=== PATIENT | male | born 1960 | race Hispanic/Latino ===

== ENCOUNTER 2018-08-20 17:17 | Inpatient (IN) | payer MEDICARE, SELFPAY ==
[2018-08-20] MEDS ORDERED: diphenhydrAMINE 50 MG/ML VIAL IM PRN (18:03)
[2018-08-20] MEDS ORDERED: Ketorolac Tromethamine 30 MG/ML VIAL IVP PRN (18:03)
[2018-08-20] MEDS ORDERED: diphenhydrAMINE 50 MG/ML VIAL IVP PRN ×2 (18:03→18:38)
[2018-08-20] MEDS ORDERED: Promethazine HCl 25 MG/ML VIAL IM PRN ×2 (18:03→18:38)
[2018-08-20] MEDS ORDERED: Naloxone HCl 0.4 mg/ml Vial IV PRN (18:03)
[2018-08-20] MEDS ORDERED: Zolpidem Tartrate 5 MG TAB PO PRN (18:03)
[2018-08-20] MEDS ORDERED: diphenhydrAMINE 25 MG CAP PO PRN ×2 (18:03→18:38)
[2018-08-20] MEDS ORDERED: Communication Order-Pharmacy FS SCH (18:15)
[2018-08-20 18:29] LABS: #Basophils 0.1 thou/uL (0.0-0.2); #Eosinphils 0.4 thou/uL (0.0-0.7); #Lymphocytes 1.8 thou/uL (1.20-3.40); #Monocytes 0.9 thou/uL (0.11-0.59); #Neutrophils 5.4 thou/uL (1.40-6.50); %Basophils 0.7 % (0.0-1.0); %Eosinophils 4.2 % (0.0-10.0); %Monocytes 10.8 % (0.0-10.0); %Neutrophils 63.3 % (42.0-75.0); Mean Corpuscular HGB CONC 33.8 g/dL (32.0-36.0); Mean Corpuscular Hemoglobin 31.5 pg (27.0-31.0); Mean Corpuscular Volume 93.2 fL (78.0-98.0); Platelet Count 154 thou/uL (130-400); Red Blood Cell (RBC) Count 3.81 mill/uL (4.70-6.10); White Blood Cell (WBC) Count 8.5 thou/uL (4.8-10.8)
[2018-08-20 18:34] LABS: INR-International Normal Ratio 1.1; Prothrombin Time 13.9 SEC (12.0-14.7)
[2018-08-20 18:35] LABS: PTT 29.6 SEC (22.9-36.1)
[2018-08-20] MEDS ORDERED: Promethazine HCl 12.5 MG SUPP PR PRN (18:38)
[2018-08-20] MEDS ORDERED: Promethazine 25 MG TAB PO PRN (18:38)
[2018-08-20] MEDS ORDERED: Ondansetron PF 4 MG/2 ML Vial IVP PRN (18:39)
[2018-08-20 18:48] LABS: Anion Gap 13 mmol/L (10-20); BUN (Urea Nitrogen) 10 mg/dL (8.4-25.7); Calc. Creatinine Clearance 0 mL/min (70-130); Calcium 9.1 mg/dL (7.8-10.44); Carbon Dioxide 23 mmol/L (22-29); Chloride 106 mmol/L (98-107); Estimated GFR-MDRD Greater than 90; Glucose 101 mg/dL (70-105); Potassium 3.6 mmol/L (3.5-5.1); Sodium 138 mmol/L (136-145)
[2018-08-20] MEDS: Sodium Chloride 0.9% 1,000 ML IV SCH (19:06)
[2018-08-20] MEDS: fentaNYL Citrate/PF 2,000 MCG in Sodium Chloride 0.9% 60 ML IV PRN (19:07)
[2018-08-20] MEDS: Metoprolol Tartrate 25 MG TAB PO SCH (21:23)
[2018-08-20] MEDS: Atorvastatin Calcium 40 MG TAB PO SCH (21:23)
[2018-08-20] MEDS: Gabapentin 300 MG CAP PO SCH (21:23)
[2018-08-20 22:49] VITALS: BMI 27.1
[2018-08-21] MEDS ORDERED: Adacel (T-DAP) 0.5 ML SYRINGE IM ONE (00:15)
--- NOTE | 2018-08-21 00:34 | HP ---
HISTORY OF PRESENT ILLNESS: The patient is a 58-year-old male with past medical history of coronary artery disease with multiple prior stents, hypertension, hyperlipidemia with prior L3-L5 fusion in 1999, who presented as ER referral for low back and leg pain. The patient reports that he was doing well until 07/30/2018, when he had sudden return of low back pain while trying to lift a pet house. He describes his pain as sharp, stabbing in the lower lumbar spine with radiation into the right groin and with associated numbness and tingling in the posterior aspect of the right leg to the knee. He is having urinary and bowel urgency and is unable to reach the bathroom at times secondary to pain. He has severe pain with standing, walking, and moving around. He is better with lying on his side. He has visited the ER several times and has a recent CT of the lumbar spine as well as MRI of the lumbar spine. MRI shows a large disk protrusion with central canal stenosis at the level above his prior fusion. CT of the lumbar spine showed stable hardware complex at L3-L5. PAST MEDICAL HISTORY: Coronary artery disease, hypertension, and hyperlipidemia. PAST SURGICAL HISTORY: L3-L5 fusion in 1999 in [place], bilateral knee replacement, bariatric surgery, left ankle surgery. HOSPITALIZATIONS: See surgical history. FAMILY HISTORY: Noncontributory. SOCIAL HISTORY: The patient is . He does not smoke, drink, or use any drugs. CURRENT MEDICATION LIST: 1. Aspirin. 2. Atorvastatin. 3. Isosorbide dinitrate. 4. Plavix. 5. Ranexa. 6. Omeprazole. 7. Metoprolol. 8. Amlodipine. 9. Losartan. 10. Diazepam. 11. Hydrocodone. 12. Gabapentin. ALLERGIES: HE HAS NO KNOWN DRUG ALLERGIES. REVIEW OF SYSTEMS: Per HPI. PHYSICAL EXAMINATION: CONSTITUTIONAL: The patient is awake, alert, uncomfortable, tearful. HEENT: Head is normocephalic, atraumatic. Eyes; PERRLA. Extraocular movements intact. ENT; oral mucosa is pink, intact, and moist. He has normal voice. NECK: Nontender to palpation. Free active range of motion. No meningismus or nuchal rigidity. CARDIAC: Regular rate and rhythm. LUNGS: He is breathing comfortably with symmetric chest expansion. No evidence of dyspnea. MUSCULOSKELETAL: He has good range of motion of the upper extremities, 5/5 strength throughout. The patient has severe pain with any movement of the lower extremities or the lumbar spine and has difficulty in participating in exam. He seems weak throughout the lower extremities. Again, this is very much limited by pain. He is generally hyperreflexive throughout. NEUROLOGIC: A and O x4. He has normal speech. He seems somewhat weak 4-/5 in the lower extremities; however, this exam is significantly limited by his pain. ASSESSMENT AND PLAN: This is a 58-year-old male with a significant cardiac history, who is being evaluated in our office today for severe low back pain with radiation to the right groin and right proximal leg. His imaging show a large disk protrusion and degenerative changes at the level above his prior construct. Considering the patient's severe level of pain, he will be directly admitted to [facility] for treatment of this. We will consult anesthesia for assistance in pain management and THERAPIST OCCUPATIONAL pump. I will also consult the Hospitalist Service for assistance in medical management as well as Cardiology for expedited cardiac clearance. We will hold the patient's Plavix and aspirin in anticipation for likely surgical intervention in the near future. I have discussed this plan with Dr. Andino who is in agreement. Job ID: [id number]
--- NOTE | 2018-08-21 01:06 | CON ---
DATE OF CONSULTATION: PRIMARY CARE PHYSICIAN: Jeannette Garcia. PRIMARY TEAM: Neurosurgery, Dr. Andino. REASON FOR CONSULTATION: Medical management. HISTORY OF PRESENT ILLNESS: This is a 58-year-old white male with history of previous back problems, surgery done in 1999, who has had some chronic recurring problems in his low back and then he had an exacerbation of it starting at the beginning of July. The patient had progressive weakness and numbness into his legs and then progressive loss of control of bowel and bladder. The patient was seen at [facility] and then at [facility]. Then he had an appointment with Dr. Andino today, but was unable to be able to wait for the appointment. Eventually, Dr. Andino admitted the patient and did a spinal decompression today. PAST MEDICAL HISTORY: 1. Coronary artery disease. 2. Hypertension. 3. Hyperlipidemia. 4. Previous kidney stones. PAST SURGICAL HISTORY: 1. Coronary artery stents x11. 2. Surgical kidney stone removal multiple times. 3. Cholecystectomy. 4. Bilateral total knee replacements. 5. Bariatric gastric sleeve. 6. Ankle surgery. SOCIAL HISTORY: The patient is not and he lives with his partner, Edyta Tao. She is in the room with him. His medical power of contracts attorney is his daughter, Vivienne Wilburn. The patient smokes a half pack of cigarettes per day and 3-4 cigars per day. He drinks a couple of beers 1 or 2 times a week. No illicit drugs. FAMILY HISTORY: Dad of colon cancer. One brother of colon cancer. Another brother of lymphatic cancer. ALLERGIES: 1. LISINOPRIL. 2. CIPROFLOXACIN. 3. CRESTOR, BUT NOT OTHER STATINS. 4. AZITHROMYCIN. CURRENT MEDICATIONS: 1. Aspirin 81 mg daily. 2. Atorvastatin 40 mg daily. 3. Isosorbide mononitrate 30 mg daily. 4. Clopidogrel 75 mg daily. 5. Omeprazole 20 mg daily. 6. Metoprolol 12.5 mg twice daily. 7. Amlodipine 5 mg daily. 8. Ranexa 500 mg once daily per patient. 9. Vitamin D3 1000 mg international units daily. 10. Coenzyme Q10 100 mg daily. 11. B12 1000 mcg daily. 12. Losartan 25 mg daily. 13. Diazepam 5 mg every 8 hours for muscle spasms. 14. Hydrocodone 10/325 mg every 6 hours for pain. 15. Tramadol tablets every 6 hours as needed for pain. 16. Nitroglycerin sublingual as needed for chest pain. 17. Gabapentin, unknown dose. REVIEW OF SYSTEMS: CONSTITUTIONAL: No fevers, no chills. EYES: No double vision or blurred vision ENT: No congestion drainage or sore throat. PULMONARY: No coughing, wheezing or shortness of breath. CARDIOVASCULAR: No chest pain, no palpitation or racing heart. GASTROINTESTINAL : No abdominal pain. No nausea or vomiting. He has had some constipation and then he has lost the ability to control his bowel movements last few days. GENITOURINARY: No dysuria or hematuria. He has developed some urinary incontinence. MUSCULOSKELETAL: See HPI. Still with severe pain in his low back. Postsurgery , he has improved after they got the MULTI SLIDE MACHINE TENDER started. SKIN: No rashes or lesions noted. NEUROLOGIC: See HPI. PHYSICAL EXAMINATION: VITAL SIGNS: Blood pressure 139/85, pulse 69, respirations 22, O2 saturation 96 % on room air, temperature 97.8. GENERAL: This is a well-developed, well-nourished white male, who is in some distress from pain. HEENT: Pupils equal, round, and reactive to light. Oropharynx clear without lesions, erythema, or exudate. NECK: Supple. No lymphadenopathy. No thyroid nodules or enlargement. No JVD. HEART: Regular rate and rhythm. No murmurs, rubs, or gallops. LUNGS: Clear to auscultation bilaterally. No wheezes, crackles, or rhonchi. ABDOMEN: Soft, nontender to palpation. Normoactive bowel sounds. No hepatosplenomegaly or other masses. EXTREMITIES: No clubbing, cyanosis, or edema. SKIN: No rashes or other lesions noted. LABORATORY DATA: CBC with a hemoglobin of 12, hematocrit of 35.5. The rest is normal. Coagulation profile is normal. Basic metabolic panel is within normal limits as well. ASSESSMENT: 1. Spinal stenosis status post decompressive surgery by Dr. Andino. 2. Coronary artery disease without any acute ischemia. We will resume patient's home medications except for holding his aspirin and Plavix until cleared to take these by neurosurgery. Dr. Lovett has also been consulted by the neurosurgical team to assist with management of the coronary artery disease. 3. Hypertension. We will resume patient's home medications. 4. Hyperlipidemia. We will resume the patient's atorvastatin. 5. Gastrointestinal prophylaxis. We will resume patient's proton pump inhibitor. 6. Deep venous thrombosis prophylaxis. We will put patient on sequential compression devices while in bed. 7. Code status. I did discuss this with the patient at length. He states that he does not want any resuscitation should his heart stop, so he is a DO NOT ATTEMPT RESUSCITATION. He states that though he would like his significant other to be his medical decisionmaker, currently his daughter is his medical power of contracts attorney, Vivienne Wilburn. Job ID: [id number] MTDD
--- NOTE | 2018-08-21 06:33 | PRG ---
DATE OF SERVICE: The patient is a 58-year-old male who presented to our office yesterday afternoon as new patient visit with severe low back and right proximal leg pain. His imaging revealed increased degenerative changes and herniated disk above his prior fusion. He was direct admitted to the hospital with plans for surgical intervention in the near future. We have requested cardiology to see him for expedited cardiac clearance considering his significant cardiac history and multiple stents. I have held Plavix and aspirin. His pain is much improved today with the use of a GLUING PRESSMAN pump. He is not requiring any additional p.r.n. medications at this time. We appreciate Cardiology and medical assistance in management of this patient. Job ID: [id number] MTDD
--- NOTE | 2018-08-21 08:27 | PDOC.PN ---
- Subjective Encounter Start Date: 08/21/18 Encounter Start Time: 10:00 Subjective: Patient with better pain control this morning. Evaluated by -: cardiology for cardiac clearance this morning. No CP/SOB. - Objective MAR Reviewed: Yes Vital Signs & Weight: Vital Signs (12 hours) Temp Pulse Resp BP Pulse Ox 08/21/18 07:11 98 F 50 L 16 116/70 96 08/21/18 04:00 98.3 F 65 18 107/61 95 08/21/18 00:59 98.4 F 55 L 14 115/65 96 Weight Weight 189 lb 3 oz I&O: 08/20/18 08/21/18 08/22/18 06:59 06:59 06:59 Intake Total 1380 Output Total 650 Balance 730 Result Diagrams: 08/20/18 18:20 08/20/18 18:20 Phys Exam - Physical Examination Constitutional: NAD HEENT: moist MMs Respiratory: no wheezing, no rales, no rhonchi Cardiovascular: RRR, no significant murmur Gastrointestinal: soft, positive bowel sounds Musculoskeletal: no edema, pulses present Neurological: moves all 4 limbs Psychiatric: normal affect, A&O x 3 Dx/Plan (1) Herniated disc Code(s): BPT7221 - Status: Acute Qualifiers: Spinal region: lumbar Qualified Code(s): M51.26 - Other intervertebral disc displacement, lumbar region Comment: with radicular symptoms and urinary/fecal incontinence, admitted last night and cardiology consulted for cardiac clearance prior to surgery, holding blood thinners (2) CAD (coronary artery disease) Code(s): I25.10 - ATHSCL HEART DISEASE OF [place] CORONARY ARTERY W/O ANG PCTRS Status: Chronic Qualifiers: Coronary Disease-Associated Artery/Lesion type: [place] artery Comment: s/p many stents (3) Hypertension Code(s): I10 - ESSENTIAL (PRIMARY) HYPERTENSION Status: Chronic (4) Hyperlipidemia Code(s): E78.5 - HYPERLIPIDEMIA, UNSPECIFIED Status: Chronic - Plan cont current plan of care, DVT proph w/SCDs Plan for cardiac clearance and then surgery * . - Discharge Day Encounter end time: 10:10
[2018-08-21] MEDS: Ubidecarenone 50 MG CAP PO SCH (09:51)
[2018-08-21] MEDS: Gabapentin 300 MG CAP PO SCH ×3 (09:52→20:20)
[2018-08-21] MEDS: Cyanocobalamin (Vitamin B-12) 1,000 MCG TAB PO SCH (09:52)
[2018-08-21] MEDS: Amlodipine 5 MG TAB PO SCH (09:54)
[2018-08-21] MEDS: Losartan 25 MG TAB PO SCH (09:54)
[2018-08-21] MEDS: Metoprolol Tartrate 25 MG TAB PO SCH ×2 (09:54→20:20)
[2018-08-21] MEDS: Sodium Chloride 0.9% 1,000 ML IV SCH ×2 (09:58→23:22)
--- NOTE | 2018-08-21 16:11 | CON ---
DATE OF CONSULTATION: 08/21/2018 TYPE OF CONSULTATION: Cardiology. INDICATION FOR CONSULTATION: A 58-year-old patient, who needs preop clearance for back surgery. HISTORY OF PRESENT ILLNESS: This 58-year-old gentleman, who has had multiple stent placements in the past, has significant coronary artery disease, apparently underwent cardiac catheterization last in 2018, was told that he has medical treatment only due to a very small vessels. His first stent was placed in 2012 and he has had multiple stents placed since that time. He denies any chest pain. He remains somewhat active at home, but does not do any significant physical exertion. He had a back strain, injured his back on ' Day and this has continued to get worse until he presented to the hospital yesterday and now has been diagnosed with spinal stenosis and possible herniated disk. He also has sciatica and the plan is for lower back surgery if he is stable. We are awaiting the echocardiogram and last cardiac catheterization that was done in [address] Burr over [facility]. Otherwise, the patient has a history of hypertension, hypercholesterolemia, and continues to smoke. He said he has smoked since he was 7 years old. He has smoked up to 3 packs a day and still smokes about half a pack a day and also smokes occasional cigar. PAST MEDICAL HISTORY: Significant for coronary artery disease, multiple surgeries. He has had back surgery in the past, back in 1999. He had surgery in [place]. He has also had multiple stent placements. He denies any significant heart attacks in the past. He says his ejection fraction is apparently normal. He has had carpal tunnel syndrome. He has had nephrolithiasis. He has had multiple stones removed using a basket technique. He has had a history of a hematoma around the right optic nerve, which was removed. He has had a tonsillectomy. He has had bariatric surgery, he has left over 120 to 130 pounds. He has had left ankle surgery. He has had L3-L5 fusion in [place] in 1999. He had bilateral knee replacement. He has had left ankle surgery. FAMILY HISTORY: Noncontributory. SOCIAL HISTORY: He continues to smoke on a daily basis. He has occasional beers. He is . He has 2 children, who have no heart disease. MEDICATIONS: Prior to admission included; 1. Aspirin. 2. Atorvastatin. 3. Isosorbide dinitrate. 4. Plavix. 5. Ranexa. 6. Omeprazole. 7. Metoprolol. 8. Amlodipine. 9. Losartan. 10. Diazepam. 11. Hydrocodone. 12. Gabapentin. ALLERGIES: HE SAYS HE HAS INTOLERANCE TO LISINOPRIL, CRESTOR, AND CIPRO, BUT NO TRUE ALLERGIC REACTIONS. REVIEW OF SYSTEMS: He wears glasses. He has dyspepsia. He continues to smoke. He has urinary and fecal incontinence recently after his back injury. He has had episodes of syncope with 3 or 4 times a month back in 2015 and they resolved after he underwent angioplasty and stent placement. He complains of lower extremity weakness due to the back problems. He says his right foot is numb. He has right leg pain, which he attributes also to some sciatica. PHYSICAL EXAMINATION: GENERAL: Reveals a well-developed, well-nourished gentleman, who is in no acute distress. VITAL SIGNS: Blood pressure is 116/70, heart rate is 50 and regular, his respiratory rate is 16, and O2 saturation 96%. He is afebrile. HEENT: Shows head to be normocephalic and atraumatic. Carotid pulses are present. There were no bruits. No JVD. The thyroid is not enlarged. Oral mucosa is pink and moist. CHEST: Clear to auscultation. There were no rales, rhonchi, or wheezing. CARDIOVASCULAR: Reveals a regular rate and rhythm with normal S1 and S2. There is no S3 or S4. There were no significant murmurs, heaves, thrills, bruits, or rubs. ABDOMEN: Soft and nontender. Positive bowel sounds are present. There is no organomegaly or masses noted. Femoral pulses are present. EXTREMITIES: No clubbing, cyanosis, or edema. Pedal pulses are also present. NEUROLOGIC: The patient appears to be intact. He does complain of some low back pain. He did not get out of the bed due to his back problems, but otherwise his upper strength appears to be normal. SKIN: Warm and dry. LABORATORY DATA: His EKG is still pending. His laboratory data shows WBC of 8.5 with a hemoglobin of 12, and platelet count 154,000. His creatinine 0.75, sodium 138, potassium 3.6, and blood sugar was 101. IMPRESSION AND PLAN: 1. A 58-year-old gentleman, who needs preop clearance to undergo back surgery. We will try to obtain the records [place] from Dr. Burr's office concerning his last cardiac catheterization and echocardiogram to determine ejection fraction to see if he is at risk for undergoing anesthesia. He denies any recent chest pain. Prior to his previous stent placement, he did complain of chest pain before the stent was placed and most likely, he has been stable at this time despite having small vessels. 2. History of tobacco abuse. He was advised to stop smoking and continue to do so and he did stop for several years, but then has resumed smoking about 3-1/2 years ago. He did stop for about 8 or 9 years previously. 3. He has a history of hypertension. This is under very good control at this time. 4. He has history of hypercholesterolemia. Do not have a cholesterol level, but he is on cholesterol medications. At this time, if the echocardiogram appears to be reasonable and there is no other acute indication from the EKG that he has any ischemic episodes, then he will be cleared for surgery as soon as we review those documents. Job ID: [id number]
[2018-08-21] MEDS: Ondansetron PF 4 MG/2 ML Vial IVP PRN (16:40)
[2018-08-21] MEDS: fentaNYL Citrate/PF 2,000 MCG in Sodium Chloride 0.9% 60 ML IV PRN (18:42)
[2018-08-21] MEDS: Atorvastatin Calcium 40 MG TAB PO SCH (20:20)
--- NOTE | 2018-08-22 08:09 | PRG ---
DATE OF SERVICE: 08/22/2018 Mr. Wilburn was admitted directly from clinic after presenting with acute deterioration of lumbar stenosis above a prior fusion intractable pain and so I mobilized he had to be directly admitted to the hospital, was doing better now on a STREET LIGHT REPAIRER and being mobilized. Based on his imaging and clinical features, he will require lumbar laminectomy and fusion at the level that we are calling L2-L3, immediately above the prior fusion. It should be noted that he has a transitional segment . Cardiology has evaluated him and generally felt him satisfactory for surgery, although there are still some items that they want to follow up on today based on their most recent note. He was on aspirin and Plavix up until Sunday and these have been held. IMPRESSION AND PLAN: Assuming final cardiac clearance, we will plan to proceed with decompression and fusion. This will likely occur on Sunday as we need some time for the aspirin and Plavix to be eliminated from the system from a bleeding perspective. Because he is so mobilized, we will start Lovenox until Sunday evening. I again discussed with him the nature of the surgery as per our discussion in the office including the indication, risks, benefits, alternatives, and he expressed understanding and wishes to proceed. Job ID: [id number]
--- NOTE | 2018-08-22 08:26 | PDOC.PN ---
- Subjective Encounter Start Date: 08/22/18 Encounter Start Time: 11:00 Subjective: Patient with pain controlled on TELEPHONE TRIAGE NURSE. No other complaints. - Objective Resuscitation Status - Order Detail: 08/21/18 15:50 Resuscitation Status Routine Resuscitation Status: DNAR: NO Resuscitation Discussed with: Patient SHERRI Reviewed: Yes Vital Signs & Weight: Vital Signs (12 hours) Temp Pulse Resp BP Pulse Ox 08/22/18 08:00 99.8 F H 65 18 113/71 91 L 08/22/18 04:00 99.9 F H 82 16 115/59 L 95 08/21/18 23:23 98.3 F 62 14 105/63 95 Weight Weight 189 lb 3 oz I&O: 08/21/18 08/22/18 08/23/18 06:59 06:59 06:59 Intake Total 1380 1260 Output Total 650 Balance 730 1260 Result Diagrams: 08/20/18 18:20 08/20/18 18:20 Phys Exam - Physical Examination Constitutional: NAD HEENT: moist MMs Respiratory: no wheezing, no rales, no rhonchi Cardiovascular: RRR Gastrointestinal: soft, positive bowel sounds Neurological: non-focal, moves all 4 limbs Psychiatric: normal affect, A&O x 3 Dx/Plan (1) Herniated disc Code(s): [id number] - Status: Acute Qualifiers: Spinal region: lumbar Qualified Code(s): M51.26 - Other intervertebral disc displacement, lumbar region Comment: with radicular symptoms and urinary/fecal incontinence, admitted last night and cardiology consulted for cardiac clearance prior to surgery, holding blood thinners, likely surgery on Sunday next week to allow time for aspirin and Plavix to get out of system (2) CAD (coronary artery disease) Code(s): I25.10 - ATHSCL HEART DISEASE OF [place] CORONARY ARTERY W/O ANG PCTRS Status: Chronic Qualifiers: Coronary Disease-Associated Artery/Lesion type: [place] artery Comment: s/p many stents (3) Hypertension Code(s): I10 - ESSENTIAL (PRIMARY) HYPERTENSION Status: Chronic (4) Hyperlipidemia Code(s): E78.5 - HYPERLIPIDEMIA, UNSPECIFIED Status: Chronic - Plan cont current plan of care, DVT proph w/lovenox Lovenox until the day before surgery * . - Discharge Day Encounter end time: 11:15
[2018-08-22] MEDS: Ubidecarenone 50 MG CAP PO SCH (09:33)
[2018-08-22] MEDS: Cyanocobalamin (Vitamin B-12) 1,000 MCG TAB PO SCH (09:33)
[2018-08-22] MEDS: Gabapentin 300 MG CAP PO SCH ×3 (09:33→20:15)
[2018-08-22] MEDS: Metoprolol Tartrate 25 MG TAB PO SCH ×2 (09:34→20:15)
[2018-08-22] MEDS: Amlodipine 5 MG TAB PO SCH (09:34)
[2018-08-22] MEDS: Losartan 25 MG TAB PO SCH (09:35)
--- NOTE | 2018-08-22 10:18 | PDOC.CTH ---
Cardiology Progress Note - Subjective Pt. seen and eval. by me. He denies any cardiac complaints. No new events overnight. - Objective Vital Signs Temp Pulse Resp BP BP Pulse Ox 08/22/18 09:34 65 113/71 08/22/18 08:00 99.8 F H 65 18 113/71 91 L 08/22/18 04:00 99.9 F H 82 16 115/59 L 95 08/21/18 23:23 98.3 F 62 14 105/63 95 Weight 189 lb 3 oz 08/21/18 08/22/18 08/23/18 06:59 06:59 06:59 Intake Total 1380 1260 Output Total 650 Balance 730 1260 - Physical Examination General/Neuro: alert & oriented x3 Neck: no JVD present Lungs: CTA Heart: RRR Abdomen: no HSM, NT/ND, soft - Labs Result Diagrams: 08/20/18 18:20 08/20/18 18:20 - Assessment/Plan 1. Spinal stenosis: surgery planned for next Sunday. Pt. has kirsten on oral anti- platelt medication and is advised to hold and plan for surgery several days later. In the interim he will continue with DVT prophylaxis with Lovenox. 2. CAD: severe 3 vessel disease with multiple stents.Small distal vessels. Poor candidate for further intervention. Continue medical treatment. Post back surgery resume antiplateet meds when feasible.
[2018-08-22] MEDS: Enoxaparin Sodium 40 MG/0.4 ML SYRINGE SC SCH (11:15)
[2018-08-22] MEDS ORDERED: CEFAZOLIN 2 GM/50 ML-DEXTROSE 2 GM in Premix Bag 1 BAG IVPB SCH (12:30)
[2018-08-22] MEDS: Sodium Chloride 0.9% 1,000 ML IV SCH ×2 (12:35→19:17)
[2018-08-22] MEDS: fentaNYL Citrate/PF 2,000 MCG in Sodium Chloride 0.9% 60 ML IV PRN (19:17)
[2018-08-22] MEDS: Acetaminophen 325 MG TAB PO PRN (20:14)
[2018-08-22] MEDS: Atorvastatin Calcium 40 MG TAB PO SCH (20:15)
[2018-08-23] MEDS: Gabapentin 300 MG CAP PO SCH ×3 (08:25→22:02)
[2018-08-23] MEDS: Losartan 25 MG TAB PO SCH (08:25)
[2018-08-23] MEDS: Ubidecarenone 50 MG CAP PO SCH (08:25)
[2018-08-23] MEDS: Amlodipine 5 MG TAB PO SCH (08:26)
[2018-08-23] MEDS: Metoprolol Tartrate 25 MG TAB PO SCH ×2 (08:26→22:02)
[2018-08-23] MEDS: Cyanocobalamin (Vitamin B-12) 1,000 MCG TAB PO SCH (08:26)
[2018-08-23] MEDS: Enoxaparin Sodium 40 MG/0.4 ML SYRINGE SC SCH (08:28)
[2018-08-23] MEDS: Sodium Chloride 0.9% 1,000 ML IV SCH ×2 (08:31→22:29)
--- NOTE | 2018-08-23 11:55 | PDOC.CTH ---
Cardiology Progress Note - Subjective The pt seen and examined. No overnight events. No cardiac complaints. - Objective Vital Signs Temp Pulse Resp BP Pulse Ox 08/23/18 08:26 64 08/23/18 08:25 94 L 08/23/18 08:00 98.6 F 64 18 112/65 94 L 08/23/18 04:00 97.9 F 62 20 113/69 96 08/23/18 00:00 97.6 F 56 L 20 109/66 92 L Weight 189 lb 3 oz 08/22/18 08/23/18 08/24/18 06:59 06:59 06:59 Intake Total 1260 1140 Balance 1260 1140 - Physical Examination General/Neuro: alert & oriented x3 Neck: no JVD present Lungs: CTA Heart: RRR Abdomen: soft Extremities: other: (No edema) - Labs Result Diagrams: 08/20/18 18:20 08/20/18 18:20 - Assessment/Plan 1. Spinal stenosis: surgery planned for next Sunday. Pt. has been on oral anti- platelt medication and is advised to hold and plan for surgery several days later. In the interim he will continue with DVT prophylaxis with Lovenox. 2. CAD: severe 3 vessel disease with multiple stents and small distal vessels: Poor candidate for further intervention. Continue medical treatment. Post back surgery resume antiplateet meds when feasible. MAR reviewed Pt. seen and eval. by me. I agree with the A/P by the DRAFTER REFRIGERATION. Chest clear. RRR. Ambulating in halls with the walker. Review of Systems - Review of Systems Constitutional: reports: no symptoms reported EENTM: reports: no symptoms reported Respiratory: reports: no symptoms reported Cardiac (ROS): reports: no symptoms reported ABD/GI: reports: no symptoms reported : reports: no symptoms reported Musculoskeletal: reports: back pain
[2018-08-23] MEDS ORDERED: Bisacodyl 5 MG TAB PO SCH (13:15)
[2018-08-23] MEDS: Acetaminophen 325 MG TAB PO PRN (13:23)
--- NOTE | 2018-08-23 15:15 | PDOC.PN ---
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 Constipation past few days - Objective Resuscitation Status - Order Detail: 08/21/18 15:50 Resuscitation Status Routine Resuscitation Status: DNAR: NO Resuscitation Discussed with: Patient Vital Signs & Weight: Vital Signs (12 hours) Temp Pulse Resp BP Pulse Ox 08/23/18 11:54 98.1 F 51 L 16 93/43 L 94 L 08/23/18 08:26 64 08/23/18 08:25 94 L 08/23/18 08:00 98.6 F 64 18 112/65 94 L 08/23/18 04:00 97.9 F 62 20 113/69 96 Weight Weight 189 lb 3 oz I&O: 08/22/18 08/23/18 08/24/18 06:59 06:59 06:59 Intake Total 1260 1140 Balance 1260 1140 Result Diagrams: 08/20/18 18:20 08/20/18 18:20 Phys Exam - Physical Examination HEENT: PERRLA, moist MMs, sclera anicteric, TM's clear, oral pharynx no lesions , 2+ tonsils Neck: no nodes, no JVD, supple, full ROM Respiratory: no wheezing, no rales, no rhonchi, clear to auscultation bilateral Cardiovascular: RRR, no significant murmur, no rub Gastrointestinal: soft, non-tender, no distention, positive bowel sounds Musculoskeletal: no edema, pulses present Neurological: non-focal, normal sensation, moves all 4 limbs Psychiatric: normal affect, A&O x 3 Skin: no rash, normal turgor, cap refill <2 seconds Dx/Plan (1) Herniated disc Code(s): [id number] - Status: Acute Qualifiers: Spinal region: lumbar Qualified Code(s): M51.26 - Other intervertebral disc displacement, lumbar region Comment: with radicular symptoms and urinary/fecal incontinence, admitted last night and cardiology consulted for cardiac clearance prior to surgery, holding blood thinners, likely surgery on Sunday next week to allow time for aspirin and Plavix to get out of system (2) CAD (coronary artery disease) Code(s): I25.10 - ATHSCL HEART DISEASE OF [place] CORONARY ARTERY W/O ANG PCTRS Status: Chronic Qualifiers: Coronary Disease-Associated Artery/Lesion type: [place] artery Comment: s/p many stents (3) Hyperlipidemia Code(s): E78.5 - HYPERLIPIDEMIA, UNSPECIFIED Status: Chronic (4) Hypertension Code(s): I10 - ESSENTIAL (PRIMARY) HYPERTENSION Status: Chronic - Plan cont current plan of care, plan discussed w/ family, DVT proph w/lovenox, DVT proph w/SCDs * .
[2018-08-23] MEDS: Atorvastatin Calcium 40 MG TAB PO SCH (22:02)
[2018-08-23] MEDS: fentaNYL Citrate/PF 2,000 MCG in Sodium Chloride 0.9% 60 ML IV PRN (22:04)
[2018-08-24] MEDS: Enoxaparin Sodium 40 MG/0.4 ML SYRINGE SC SCH (08:51)
[2018-08-24] MEDS: Ubidecarenone 50 MG CAP PO SCH (08:51)
[2018-08-24] MEDS: Losartan 25 MG TAB PO SCH (08:52)
[2018-08-24] MEDS: Bisacodyl 5 MG TAB PO SCH (08:53)
[2018-08-24] MEDS: Amlodipine 5 MG TAB PO SCH (08:53)
[2018-08-24] MEDS: Gabapentin 300 MG CAP PO SCH ×3 (08:53→21:41)
[2018-08-24] MEDS: Cyanocobalamin (Vitamin B-12) 1,000 MCG TAB PO SCH (08:53)
[2018-08-24] MEDS: Metoprolol Tartrate 25 MG TAB PO SCH ×2 (08:53→21:41)
[2018-08-24] MEDS: Sodium Chloride 0.9% 1,000 ML IV SCH (10:56)
[2018-08-24] MEDS ORDERED: Polyethylene Glycol 3350 17 GM Packet PO SCH (12:15)
[2018-08-24] MEDS: Polyethylene Glycol 3350 17 GM Packet PO SCH (12:23)
--- NOTE | 2018-08-24 13:13 | PDOC.PN ---
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, started hallucinating , -: doing better now, pain continues in ,low back pain - Objective Resuscitation Status - Order Detail: 08/21/18 15:50 Resuscitation Status Routine Resuscitation Status: DNAR: NO Resuscitation Discussed with: Ander POLANCO Reviewed: Yes Vital Signs & Weight: Vital Signs (12 hours) Temp Pulse Resp BP BP Pulse Ox 08/24/18 10:54 98.2 F 59 L 20 101/64 95 08/24/18 08:53 58 L 110/65 95 08/24/18 07:50 98 F 58 L 20 110/65 95 Weight Weight 189 lb 3 oz I&O: 08/23/18 08/24/18 08/25/18 06:59 06:59 06:59 Intake Total 1260 2880 Balance 1260 2880 Result Diagrams: 08/20/18 18:20 08/20/18 18:20 Phys Exam - Physical Examination HEENT: PERRLA, moist MMs, sclera anicteric, TM's clear, oral pharynx no lesions , 2+ tonsils Neck: no nodes, no JVD, supple, full ROM Respiratory: no wheezing, no rales Cardiovascular: RRR, no significant murmur, no rub Gastrointestinal: soft, non-tender, no distention Musculoskeletal: no edema, pulses present Neurological: non-focal, normal sensation, moves all 4 limbs Psychiatric: normal affect, A&O x 3 Skin: no rash, normal turgor, cap refill <2 seconds Dx/Plan (1) Herniated disc Code(s): [id number] - Status: Acute Qualifiers: Spinal region: lumbar Qualified Code(s): M51.26 - Other intervertebral disc displacement, lumbar region Comment: with radicular symptoms and urinary/fecal incontinence, admitted last night and cardiology consulted for cardiac clearance prior to surgery, holding blood thinners, likely surgery on Sunday next week to allow time for aspirin and Plavix to get out of system. Restart Plavix and aspirin after surgery when appropriate (2) CAD (coronary artery disease) Code(s): I25.10 - ATHSCL HEART DISEASE OF [place] CORONARY ARTERY W/O ANG PCTRS Status: Chronic Qualifiers: Coronary Disease-Associated Artery/Lesion type: [place] artery Comment: s/p many stents, severe triple vessel disease, no further cardiac intervention, only medical management (3) Hyperlipidemia Code(s): E78.5 - HYPERLIPIDEMIA, UNSPECIFIED Status: Chronic Comment: continue statins (4) Hypertension Code(s): I10 - ESSENTIAL (PRIMARY) HYPERTENSION Status: Chronic Comment: continue home meds - Plan cont current plan of care, plan discussed w/ family, DVT proph w/lovenox * .
[2018-08-24] MEDS: Mag-Al 1200 mg/1200 mg/30 ML UDCUP PO PRN (16:59)
[2018-08-24] MEDS: Atorvastatin Calcium 40 MG TAB PO SCH (21:41)
[2018-08-24] MEDS: Milk Of Magnesia 30 ML UDCUP PO PRN (21:44)
[2018-08-25] MEDS: Sodium Chloride 0.9% 1,000 ML IV SCH ×2 (00:43→14:04)
[2018-08-25] MEDS: fentaNYL Citrate/PF 2,000 MCG in Sodium Chloride 0.9% 60 ML IV PRN (06:16)
[2018-08-25] MEDS: Cyanocobalamin (Vitamin B-12) 1,000 MCG TAB PO SCH (08:13)
[2018-08-25] MEDS: Metoprolol Tartrate 25 MG TAB PO SCH ×2 (08:13→20:41)
[2018-08-25] MEDS: Gabapentin 300 MG CAP PO SCH ×3 (08:13→20:41)
[2018-08-25] MEDS: Amlodipine 5 MG TAB PO SCH (08:13)
[2018-08-25] MEDS: Ubidecarenone 50 MG CAP PO SCH (08:13)
[2018-08-25] MEDS: Losartan 25 MG TAB PO SCH (08:14)
[2018-08-25] MEDS: Bisacodyl 5 MG TAB PO SCH (08:14)
[2018-08-25] MEDS: Polyethylene Glycol 3350 17 GM Packet PO SCH (08:14)
[2018-08-25] MEDS ORDERED: CEFAZOLIN 2 GM/50 ML-DEXTROSE 2 GM in Premix Bag 1 BAG IVPB SCH (10:15)
[2018-08-25] MEDS: Ondansetron PF 4 MG/2 ML Vial IVP PRN (12:06)
--- NOTE | 2018-08-25 14:03 | PDOC.PN ---
- Subjective Encounter Start Date: 08/25/18 Encounter Start Time: 14:00 Subjective: PAIN CONTROLLED WITH MINING CAPTAIN, WALKING IN THE HALLWAYS WITH WALKER INDEPENDENTLY - Objective Resuscitation Status - Order Detail: 08/21/18 15:50 Resuscitation Status Routine Resuscitation Status: DNAR: NO Resuscitation Discussed with: Patient Vital Signs & Weight: Vital Signs (12 hours) Temp Pulse Resp BP BP Pulse Ox 08/25/18 11:56 97.6 F 61 18 118/68 96 08/25/18 08:13 63 119/71 97 08/25/18 07:35 97.9 F 65 20 119/71 97 08/25/18 03:59 97.7 F 61 18 116/72 95 Weight Weight 189 lb 3 oz I&O: 08/24/18 08/25/18 08/26/18 06:59 06:59 06:59 Intake Total 2880 1610 Balance 2880 1610 Result Diagrams: 08/20/18 18:20 08/20/18 18:20 Phys Exam - Physical Examination HEENT: PERRLA, moist MMs, sclera anicteric, TM's clear, oral pharynx no lesions , 2+ tonsils Neck: no nodes, no JVD, supple, full ROM Respiratory: no wheezing, no rales, no rhonchi Cardiovascular: RRR, no significant murmur, no rub Gastrointestinal: soft, non-tender, no distention, positive bowel sounds Musculoskeletal: no edema, pulses present Neurological: non-focal, normal sensation, moves all 4 limbs Psychiatric: normal affect, A&O x 3 Skin: no rash, normal turgor, cap refill <2 seconds Dx/Plan (1) Herniated disc Code(s): [id number] - Status: Acute Qualifiers: Spinal region: lumbar Qualified Code(s): M51.26 - Other intervertebral disc displacement, lumbar region Comment: with radicular symptoms and urinary/fecal incontinence, admitted last night and cardiology consulted for cardiac clearance prior to surgery, holding blood thinners, likely surgery on Sunday next week to allow time for aspirin and Plavix to get out of system. Restart Plavix and aspirin after surgery when appropriate (2) CAD (coronary artery disease) Code(s): I25.10 - ATHSCL HEART DISEASE OF [place] CORONARY ARTERY W/O ANG PCTRS Status: Chronic Qualifiers: Coronary Disease-Associated Artery/Lesion type: [place] artery Comment: s/p many stents, severe triple vessel disease, no further cardiac intervention, only medical management (3) Hyperlipidemia Code(s): E78.5 - HYPERLIPIDEMIA, UNSPECIFIED Status: Chronic Comment: continue statins (4) Hypertension Code(s): I10 - ESSENTIAL (PRIMARY) HYPERTENSION Status: Chronic Comment: continue home meds - Plan * .
[2018-08-25] MEDS ORDERED: Fleet Enema 133 ML BOT PR SCH (17:30)
[2018-08-25] MEDS ORDERED: Fleet Enema 133 ML BOT PR PRN (18:00)
[2018-08-25] MEDS: Atorvastatin Calcium 40 MG TAB PO SCH (20:41)
[2018-08-26] MEDS: Sodium Chloride 0.9% 1,000 ML IV SCH (04:59)
[2018-08-26] MEDS: Metoprolol Tartrate 25 MG TAB PO SCH ×2 (08:40→21:26)
[2018-08-26] MEDS: Gabapentin 300 MG CAP PO SCH ×3 (08:40→21:26)
[2018-08-26] MEDS: Cyanocobalamin (Vitamin B-12) 1,000 MCG TAB PO SCH (08:42)
[2018-08-26] MEDS: Ubidecarenone 50 MG CAP PO SCH (08:42)
[2018-08-26] MEDS ORDERED: CEFAZOLIN/Water 2 GM/20 ML SYRINGE SLOW IVP SCH ×2 (08:45→12:15)
[2018-08-26] MEDS ORDERED: Sodium Chloride 0.9% 10 ML ONE (09:07)
--- NOTE | 2018-08-26 09:21 | PDOC.CTH ---
Cardiology Progress Note - Subjective The pt seen and examined. No overnight events. No cardiac complaints. Plan for Back sx at 1500 today. - Objective Vital Signs Temp Pulse Resp BP Pulse Ox 08/26/18 08:42 96 08/26/18 07:41 98.1 F 59 L 18 104/58 L 96 08/26/18 04:00 98.3 F 61 16 113/70 95 08/26/18 00:00 98.4 F 59 L 16 120/73 95 Weight 189 lb 3 oz 08/25/18 08/26/18 08/27/18 06:59 06:59 06:59 Intake Total 1610 2100 1400 Balance 1610 2100 1400 - Physical Examination General/Neuro: alert & oriented x3 Neck: no JVD present Lungs: CTA Heart: RRR Abdomen: soft Extremities: other: (No edema) - Labs Result Diagrams: 08/20/18 18:20 08/20/18 18:20 - Assessment/Plan 1. Spinal stenosis: surgery planned for next Sunday. Pt. has been on oral anti- platelt medication and is advised to hold and plan for surgery today. In the interim he will continue with DVT prophylaxis with Lovenox. 2. CAD: severe 3 vessel disease with multiple stents and small distal vessels: Poor candidate for further intervention. Continue medical treatment. Post back surgery resume antiplatelet meds when feasible. 3. Current smoker - smoking cessation education given to the pt and family. At this moment, he does not want to stop smoking. MAR reviewed Pt. seen and eval. by me. No cardiac problems during surgery. I agree with the A /P by the PLANNER/SCHEDULER. Chest clear. RRR, no edema. Cardiac status stable. Review of Systems - Review of Systems Constitutional: reports: no symptoms reported EENTM: reports: no symptoms reported Respiratory: reports: no symptoms reported Cardiac (ROS): reports: no symptoms reported ABD/GI: reports: no symptoms reported : reports: no symptoms reported Musculoskeletal: reports: back pain
[2018-08-26] MEDS: fentaNYL Citrate/PF 2,000 MCG in Sodium Chloride 0.9% 60 ML IV PRN (10:22)
[2018-08-26] MEDS ORDERED: Fentanyl 100 MCG/2 ML VIAL ONE ×2 (12:34→14:41)
[2018-08-26] MEDS ORDERED: Fentanyl 250 MCG/5 ML VIAL ONE (12:49)
[2018-08-26] MEDS ORDERED: Midazolam HCl 2 mg/2 ml Vial ONE (12:50)
[2018-08-26] MEDS ORDERED: ePHEDrine/0.9% NaCl/PF SYRINGE 50 mg/10 ml ONE (13:48)
[2018-08-26] MEDS ORDERED: Lidocaine 1% PF 5 ML VIAL ONE (13:48)
[2018-08-26] MEDS ORDERED: Dexamethasone 20 MG/5 ML VIAL ONE (13:48)
[2018-08-26] MEDS ORDERED: PROPOFOL 200 MG/20 ML VIAL ONE (13:48)
[2018-08-26] MEDS ORDERED: Rocuronium Bromide 10 MG/ML (10ML VIAL) ONE (13:48)
[2018-08-26] MEDS ORDERED: Glycopyrrolate 0.2 MG/ML 5 ML SYRINGE ONE (13:48)
[2018-08-26] MEDS ORDERED: Promethazine HCl 25 MG/ML VIAL IM PRN ×2 (13:55→22:47)
[2018-08-26] MEDS ORDERED: Promethazine HCl 25 MG/ML VIAL SLOW IVP PRN (13:55)
[2018-08-26] MEDS ORDERED: Ondansetron HCl/PF 4 MG/2 ML Vial IVP PRN (13:55)
--- NOTE | 2018-08-26 14:04 | PDOC.PN ---
- Subjective Encounter Start Date: 08/26/18 Encounter Start Time: 14:03 Subjective: awaiting spine surgery - Objective Resuscitation Status - Order Detail: 08/21/18 15:50 Resuscitation Status Routine Resuscitation Status: DNAR: NO Resuscitation Discussed with: Patient Vital Signs & Weight: Vital Signs (12 hours) Temp Pulse Resp BP Pulse Ox 08/26/18 08:42 96 08/26/18 07:41 98.1 F 59 L 18 104/58 L 96 08/26/18 04:00 98.3 F 61 16 113/70 95 Weight Weight 189 lb 3 oz I&O: 08/25/18 08/26/18 08/27/18 06:59 06:59 06:59 Intake Total 1610 2100 1400 Balance 1610 2100 1400 Result Diagrams: 08/20/18 18:20 08/20/18 18:20 Phys Exam - Physical Examination HEENT: PERRLA, moist MMs, sclera anicteric, TM's clear, oral pharynx no lesions , 2+ tonsils Neck: no nodes, no JVD, supple, full ROM Respiratory: no wheezing, no rales, no rhonchi Cardiovascular: RRR, no significant murmur, no rub Gastrointestinal: soft, non-tender, no distention, positive bowel sounds Musculoskeletal: no edema, pulses present Neurological: non-focal, normal sensation, moves all 4 limbs Psychiatric: normal affect, A&O x 3 Skin: no rash, normal turgor, cap refill <2 seconds Dx/Plan (1) Herniated disc Code(s): [id number] - Status: Acute Qualifiers: Spinal region: lumbar Qualified Code(s): M51.26 - Other intervertebral disc displacement, lumbar region Comment: with radicular symptoms and urinary/fecal incontinence, admitted last night and cardiology consulted for cardiac clearance prior to surgery, holding blood thinners, likely surgery on Sunday next week to allow time for aspirin and Plavix to get out of system. Restart Plavix and aspirin after surgery when appropriate (2) CAD (coronary artery disease) Code(s): I25.10 - ATHSCL HEART DISEASE OF [place] CORONARY ARTERY W/O ANG PCTRS Status: Chronic Qualifiers: Coronary Disease-Associated Artery/Lesion type: [place] artery Comment: s/p many stents, severe triple vessel disease, no further cardiac intervention, only medical management (3) Hyperlipidemia Code(s): E78.5 - HYPERLIPIDEMIA, UNSPECIFIED Status: Chronic Comment: continue statins (4) Hypertension Code(s): I10 - ESSENTIAL (PRIMARY) HYPERTENSION Status: Chronic Comment: continue home meds - Plan cont current plan of care, plan discussed w/ family, PT/OT Hold Anti Coagulation, CM consulted for post surgery rehab * .
[2018-08-26] MEDS: Losartan 25 MG TAB PO SCH (16:16)
[2018-08-26] MEDS: Polyethylene Glycol 3350 17 GM Packet PO SCH (16:16)
[2018-08-26] MEDS: Amlodipine 5 MG TAB PO SCH (16:16)
--- NOTE | 2018-08-26 20:54 | OP ---
DATE OF PROCEDURE: 08/26/2018 PIPE FITTER SUPERVISOR: Louie Hassan PA-C PROCEDURES PERFORMED: Exploration of spinal fusion L3 through L5, attempted removal of hardware L3 through L5, L2-3 laminectomy, posterolateral arthrodesis, BMP, cancellous bone chips L2-3. DESCRIPTION OF PROCEDURE: The patient was brought to the operating room and intubated. He was rolled in a prone position on gel-filled chest rolls. Previous incision was reopened and extended superiorly. We identified the previous hardware and attempted to remove it, but the screw heads were extremely unique apparently with 12 sides on them and did not correspond to any known hardware. We attempted every possible device for removal. None of them were compatible. After extensive efforts, had to abort removal. Exploration of fusion found to be solid. We next performed L2-3 laminectomy. In the region of L3 where the previous surgery had been performed, timothy CSF was emanating from the dura where it had previously been attenuated. This was reinforced with Gelfoam and DuraSeal fibrin sealant. A complete L2-3 laminectomy was achieved. Next, the wound was extensively irrigated and maximum hemostasis was secured. BMP was soaked on Gelfoam pledgets with cancellous bone chips and laid over the posterolateral surfaces at the margins of L2-3 for the posterolateral arthrodesis. Vancomycin powder was then applied and the wound was closed in anatomic layers. Job ID: [id number]
[2018-08-26] MEDS: Atorvastatin Calcium 40 MG TAB PO SCH (21:26)
[2018-08-26] MEDS: CEFAZOLIN 2 GM/50 ML-DEXTROSE 2 GM in Premix Bag 1 BAG IVPB SCH (21:27)
[2018-08-26] MEDS: tiZANidine HCl 4 MG TAB PO PRN (22:02)
[2018-08-26] MEDS ORDERED: diphenhydrAMINE 25 MG CAP PO PRN (22:47)
[2018-08-26] MEDS ORDERED: diphenhydrAMINE 50 MG/ML VIAL IVP PRN (22:47)
[2018-08-26] MEDS ORDERED: Naloxone HCl 0.4 mg/ml Vial IV PRN (22:47)
[2018-08-26] MEDS ORDERED: Ondansetron PF 4 MG/2 ML Vial IVP PRN (22:47)
[2018-08-26] MEDS ORDERED: diphenhydrAMINE 50 MG/ML VIAL IM PRN (22:47)
[2018-08-26] MEDS ORDERED: Zolpidem Tartrate 5 MG TAB PO PRN (22:47)
[2018-08-26] MEDS ORDERED: Communication Order-Pharmacy FS SCH (23:00)
[2018-08-26] MEDS ORDERED: Dexamethasone 4 mg/ml Vial SLOW IVP SCH (23:00)
[2018-08-26] MEDS: Ketorolac Tromethamine 30 MG/ML VIAL IVP PRN (23:08)
[2018-08-27] MEDS: Sodium Chloride 0.9% 1,000 ML IV SCH ×2 (00:39→12:43)
[2018-08-27] MEDS: Ketorolac Tromethamine 30 MG/ML VIAL IVP PRN (05:36)
[2018-08-27] MEDS: CEFAZOLIN 2 GM/50 ML-DEXTROSE 2 GM in Premix Bag 1 BAG IVPB SCH (05:36)
--- NOTE | 2018-08-27 07:25 | PRG ---
DATE OF SERVICE: 08/27/2018 The patient is a 58-year-old male, status post exploration of hardware from L3-L5 and L2-L3 decompression and fusion with BMP. Unfortunately, secondary to unusual hardware, the patient's construct at L3-L5 was unable to be removed. He did have good decompression by Dr. Andino yesterday during his operative course. He was provided with an LSO brace to wear after surgery, which he has been compliant with. Following the surgery, the patient was transitioned back to the Med/Surg floor and he reports he was doing well until yesterday evening when he tried to get into bed and had sudden onset of left leg radicular pain. Since this event, the patient has had significant pain with standing or walking. He is improved when sitting or lying in the bed. He was treated overnight with 10 mg of IV Decadron without significant improvement. He is somewhat limited by pain; however, he denies any weakness or bowel or bladder issues. He is sitting in bed, uncomfortable this morning. He has a positive left straight leg raise and contralateral right straight leg raise. He seems to be limited by strength in his left leg secondary to pain. He has 5/5 strength throughout in the right lower extremity. The patient appears to have developed postoperative radiculitis and we will begin Decadron 4 mg q.6h and taper as needed. I will also increase his gabapentin to 600 mg t.i.d. We will continue to have him work with PT and OT. The patient may require inpatient rehabilitation and I have placed this screen. Job ID: [id number] [facility]
[2018-08-27] MEDS: Dexamethasone 4 mg/ml Vial SLOW IVP SCH ×3 (07:44→18:01)
[2018-08-27] MEDS: Gabapentin 300 MG CAP PO SCH ×3 (08:27→20:19)
[2018-08-27] MEDS: Polyethylene Glycol 3350 17 GM Packet PO SCH (08:27)
[2018-08-27] MEDS: Ubidecarenone 50 MG CAP PO SCH (08:27)
[2018-08-27] MEDS: Amlodipine 5 MG TAB PO SCH (08:28)
[2018-08-27] MEDS: Metoprolol Tartrate 25 MG TAB PO SCH ×2 (08:28→20:19)
[2018-08-27] MEDS: Losartan 25 MG TAB PO SCH (08:29)
[2018-08-27] MEDS: Cyanocobalamin (Vitamin B-12) 1,000 MCG TAB PO SCH (08:29)
--- NOTE | 2018-08-27 08:58 | PDOC.CTH ---
Cardiology Progress Note - Subjective The pt seen and examined. No overnight events. No cardiac complaints. - Objective Vital Signs Temp Pulse Resp BP BP BP Pulse Ox 08/27/18 08:28 73 112/63 08/27/18 07:20 99.5 F 85 18 115/69 94 L 08/27/18 04:00 98.7 F 88 18 134/75 94 L 08/27/18 00:00 98.9 F 77 18 108/54 L 95 Weight 189 lb 3 oz 08/26/18 08/27/18 08/28/18 06:59 06:59 06:59 Intake Total 2100 4562.5 Balance 2100 4562.5 - Physical Examination General/Neuro: alert & oriented x3 Neck: no JVD present Lungs: CTA Heart: RRR Abdomen: soft Extremities: other: (No edema) - Labs Result Diagrams: 08/28/18 05:06 08/28/18 05:06 - Assessment/Plan 1. Spinal stenosis with s/p decompression and fusion with BMP to L2-3 and L3-5: Complains of sharp pain to LLE possible 2/2 to post-op Reaiculitis; on Decadoron 4mg q6hrs by neuro; Will resume antiplatelet medication once cleared by neuro. 2. CAD: severe 3 vessel disease with multiple stents and small distal vessels: Poor candidate for further intervention. Continue medical treatment. Post back surgery resume antiplatelet meds when feasible. 3. Current smoker - smoking cessation education given to the pt and family. At this moment, he does not want to stop smoking. MAR reviewed Pt. seen and eval. by me. No cardiac problems. I agree with the A/P by the PSYCHOLOGICAL STRESS EVALUATOR. Chest clear. RRR, no edema. Cardiac status stable. I will sign off.He should follow up with his primary console attendant in 4-6 weeks. Review of Systems - Review of Systems Constitutional: reports: weakness EENTM: reports: no symptoms reported Respiratory: reports: no symptoms reported Cardiac (ROS): reports: no symptoms reported ABD/GI: reports: no symptoms reported : reports: no symptoms reported Musculoskeletal: reports: see HPI
[2018-08-27] MEDS: tiZANidine HCl 4 MG TAB PO PRN (10:07)
--- NOTE | 2018-08-27 10:39 | PRG ---
DATE OF SERVICE: SUBJECTIVE: Mr. Wilburn is postoperative day one. He initially done extremely well and then after getting in bed last night had a flare-up of left-sided leg pain. This has required increased gabapentin, Decadron, and increased narcotic pain medicine. We will continue course today with gradual mobilization. Rehab screen has been ordered. Job ID: [id number]
[2018-08-27] MEDS: fentaNYL Citrate/PF 2,000 MCG in Sodium Chloride 0.9% 60 ML IV PRN (10:48)
[2018-08-27] MEDS: HYDROmorphone 10 mg/100 ml CADD IV PRN (15:13)
--- NOTE | 2018-08-27 15:33 | PDOC.PN ---
- Subjective Encounter Start Date: 08/27/18 Encounter Start Time: 15:32 Subjective: still with significant left leg pain -: no nausea/vomiting - Objective Resuscitation Status - Order Detail: 08/21/18 15:50 Resuscitation Status Routine Resuscitation Status: DNAR: NO Resuscitation Discussed with: Patient SHERRI Reviewed: Yes Vital Signs & Weight: Vital Signs (12 hours) Temp Pulse Pulse Resp BP BP BP 08/27/18 12:43 98.1 F 63 16 99/63 08/27/18 10:42 67 118/58 L 08/27/18 08:28 73 112/63 08/27/18 07:20 99.5 F 85 18 115/69 08/27/18 04:00 98.7 F 88 18 134/75 Pulse Ox 08/27/18 12:43 96 08/27/18 10:42 08/27/18 08:28 08/27/18 07:20 94 L 08/27/18 04:00 94 L Weight Weight 189 lb 3 oz I&O: 08/26/18 08/27/18 08/28/18 06:59 06:59 06:59 Intake Total 2100 4562.5 Balance 2100 4562.5 Result Diagrams: 08/20/18 18:20 08/20/18 18:20 Phys Exam - Physical Examination Constitutional: NAD HEENT: PERRLA, moist MMs, sclera anicteric, oral pharynx no lesions Neck: no nodes, no JVD, supple, full ROM Respiratory: no wheezing, no rales, no rhonchi, clear to auscultation bilateral Cardiovascular: RRR, no significant murmur, no rub Gastrointestinal: soft, non-tender, no distention, positive bowel sounds Musculoskeletal: no edema, pulses present Neurological: non-focal, normal sensation, moves all 4 limbs Psychiatric: normal affect, A&O x 3 Skin: no rash Dx/Plan (1) Lumbar radicular pain Code(s): M54.16 - RADICULOPATHY, LUMBAR REGION Status: Acute (2) CAD (coronary artery disease) Code(s): I25.10 - ATHSCL HEART DISEASE OF [place] CORONARY ARTERY W/O ANG PCTRS Status: Chronic Qualifiers: Coronary Disease-Associated Artery/Lesion type: [place] artery Comment: s/p many stents, severe triple vessel disease, no further cardiac intervention, only medical management (3) Hyperlipidemia Code(s): E78.5 - HYPERLIPIDEMIA, UNSPECIFIED Status: Chronic Comment: continue statins (4) Hypertension Code(s): I10 - ESSENTIAL (PRIMARY) HYPERTENSION Status: Chronic Comment: continue home meds - Plan DVT proph w/SCDs HD stable.pain control per NS.FEED MIXER ordered -: check labs in am -: BP controlled. meds as below -: [place] * . Review of Systems - Review of Systems Constitutional: weakness. negative: fever, chills, sweats, malaise, other Eyes: negative: Pain, Vision Change, Conjunctivae Inflammation, Eyelid Inflammation, Redness, Other Respiratory: negative: Cough, Dry, Shortness of Breath, Hemoptysis, SOB with Excertion, Pleuritic Pain, Sputum, Wheezing Cardiovascular: negative: chest pain, palpitations, orthopnea, paroxysmal nocturnal dyspnea, edema, light headedness, other Gastrointestinal: negative: Nausea, Vomiting, Abdominal Pain, Diarrhea, Constipation, Melena, Hematochezia, Other Genitourinary: negative: Dysuria, Frequency, Incontinence, Hematuria, Retention , Other Musculoskeletal: Leg Pain. negative: Neck Pain, Shoulder Pain, Arm Pain, Back Pain, Hand Pain, Foot Pain, Other Neurological: negative: Weakness, Numbness, Incoordination, Change in Speech, Confusion, Seizures, Other - Medications/Allergies Allergies/Adverse Reactions: Allergies Allergy/AdvReac Type Severity Reaction Status Date / Time azithromycin Allergy Verified 08/20/18 18:02 [From Zithromax Z-Sb] ciprofloxacin [From Cipro] Allergy Verified 08/20/18 18:02 lisinopril Allergy Verified 08/20/18 18:02 rosuvastatin [From Crestor] Allergy Verified 08/20/18 18:02 Medications: Current Medications Acetaminophen (Tylenol) 650 mg PO Q4H PRN PRN Reason: Headache Last Admin: 08/23/18 13:23 Dose: 650 mg Al Hydroxide/Mg Hydroxide (Maalox) 30 ml PO Q4H PRN PRN Reason: Heartburn or Indigestion Last Admin: 08/24/18 16:59 Dose: 30 ml Amlodipine Besylate (Norvasc) 5 mg PO DAILY PENDING SALE TO [facility] Last Admin: 08/27/18 08:28 Dose: Not Given Atorvastatin Calcium (Lipitor) 40 mg PO HS PENDING SALE TO [facility] Last Admin: 08/26/18 21:26 Dose: 40 mg Cholecalciferol (Vitamin D3) 1,000 units PO DAILY PENDING SALE TO [facility] Last Admin: 08/27/18 08:28 Dose: 1,000 units Coenzyme Q10 (Coenzyme Q10) 100 mg PO DAILY PENDING SALE TO [facility] Last Admin: 08/27/18 08:27 Dose: 100 mg Cyanocobalamin (Vitamin B-12) 1,000 mcg PO DAILY PENDING SALE TO [facility] Last Admin: 08/27/18 08:29 Dose: 1,000 mcg Dexamethasone (Decadron) 4 mg SLOW IVP Q6H PENDING SALE TO [facility] Last Admin: 08/27/18 12:43 Dose: 4 mg Diphenhydramine HCl (Benadryl) 25 mg IVP Q3H PRN PRN Reason: Itching Last Admin: 08/26/18 23:08 Dose: 25 mg Diphenhydramine HCl (Benadryl) 25 mg PO Q3H PRN PRN Reason: Itching Diphenhydramine HCl (Benadryl) 25 mg IM Q3H PRN PRN Reason: Itching Gabapentin (Neurontin) 600 mg PO TID PENDING SALE TO [facility] Last Admin: 08/27/18 15:13 Dose: 600 mg Hydromorphone HCl (Dilaudid Cadd) 0 mg IV INF PRN PRN Reason: Pain Last Admin: 08/27/18 15:13 Dose: 10 mg Sodium Chloride (Normal Saline 0.9%) 1,000 mls @ 75 mls/hr IV .[id number] PENDING SALE TO [facility] Last Admin: 08/27/18 12:43 Dose: 1,000 mls Isosorbide Mononitrate (Imdur Er) 30 mg PO DAILY PENDING SALE TO [facility] Last Admin: 08/27/18 08:29 Dose: 30 mg Ketorolac Tromethamine (Toradol) 30 mg IVP Q6H PRN PRN Reason: Moderate Pain (4-6) Stop: 08/29/18 22:48 Last Admin: 08/27/18 05:36 Dose: 30 mg Losartan Potassium (Cozaar) 25 mg PO DAILY PENDING SALE TO [facility] Last Admin: 08/27/18 08:29 Dose: Not Given Magnesium Hydroxide (Milk Of Magnesium) 30 ml PO Q12H PRN PRN Reason: Constipation Last Admin: 08/24/18 21:44 Dose: 30 ml Metoprolol Tartrate (Lopressor) 12.5 mg PO BID PENDING SALE TO [facility] Last Admin: 08/27/18 08:28 Dose: Not Given Naloxone HCl (Narcan) 0.2 mg IV Q5MIN PRN PRN Reason: Opiate Reversal Ondansetron HCl (Zofran) 4 mg IVP Q6H PRN PRN Reason: Nausea/Vomiting Pantoprazole Sodium (Protonix) 40 mg PO DAILY PENDING SALE TO [facility] Last Admin: 08/27/18 08:27 Dose: 40 mg Polyethylene Glycol (Miralax) 17 gm PO DAILY PENDING SALE TO [facility] Last Admin: 08/27/18 08:27 Dose: 17 gm Promethazine HCl (Phenergan) 12.5 mg PO Q4H PRN PRN Reason: Nausea/Vomiting Promethazine HCl (Phenergan Suppository) 12.5 mg [place] Q4H PRN PRN Reason: Nausea/Vomiting Promethazine HCl (Phenergan) 12.5 mg IM Q4H PRN PRN Reason: Nausea/Vomiting Ranolazine (Ranexa) 500 mg PO BID PENDING SALE TO [facility] Last Admin: 08/27/18 08:28 Dose: 500 mg Sodium Chloride (Flush - Normal Saline) 10 ml IVF PRN PRN PRN Reason: Saline Flush Tizanidine HCl (Zanaflex) 4 mg PO Q6H PRN PRN Reason: MUSCLE SPASM Last Admin: 08/27/18 10:07 Dose: 4 mg Zolpidem Tartrate (Ambien) 5 mg PO HSPRN PRN PRN Reason: Insomnia
--- NOTE | 2018-08-27 20:01 | EKG ---
Test Reason : PREOP Blood Pressure : / mmHG Vent. Rate : 051 BPM Atrial Rate : 051 BPM P-R Int : 184 ms QRS Dur : 088 ms QT Int : 410 ms P-R-T Axes : 072 -07 030 degrees QTc Int : 377 ms Sinus bradycardia Nonspecific T wave abnormality Abnormal ECG No previous ECGs available Confirmed by CHRISTOPHE WOMACK (2) on 08/27/2018 8:01:35 PM Referred By: NAYE Confirmed By:CHRISTOPHE WOMACK
[2018-08-27] MEDS: Atorvastatin Calcium 40 MG TAB PO SCH (20:18)
[2018-08-28] MEDS: Dexamethasone 4 mg/ml Vial SLOW IVP SCH ×4 (02:53→18:25)
[2018-08-28] MEDS: Sodium Chloride 0.9% 1,000 ML IV SCH ×2 (02:54→14:05)
[2018-08-28 05:14] LABS: Hemoglobin 9.2 g/dL (14.0-18.0)
[2018-08-28 05:41] LABS: Anion Gap 11 mmol/L (10-20); BUN (Urea Nitrogen) 14 mg/dL (8.4-25.7); Calc. Creatinine Clearance 122 mL/min (70-130); Calcium 8.7 mg/dL (7.8-10.44); Carbon Dioxide 24 mmol/L (22-29); Chloride 100 mmol/L (98-107); Estimated GFR-MDRD Greater than 90; Glucose 216 mg/dL (70-105); Potassium 4.7 mmol/L (3.5-5.1); Sodium 130 mmol/L (136-145)
[2018-08-28] MEDS: HYDROmorphone 10 mg/100 ml CADD IV PRN ×2 (05:56→18:21)
[2018-08-28] MEDS: tiZANidine HCl 4 MG TAB PO PRN (06:06)
[2018-08-28] MEDS: Polyethylene Glycol 3350 17 GM Packet PO SCH (08:40)
[2018-08-28] MEDS: Milk Of Magnesia 30 ML UDCUP PO PRN (08:40)
[2018-08-28] MEDS: Gabapentin 300 MG CAP PO SCH ×3 (08:41→20:10)
[2018-08-28] MEDS: Ubidecarenone 50 MG CAP PO SCH (08:42)
[2018-08-28] MEDS: Cyanocobalamin (Vitamin B-12) 1,000 MCG TAB PO SCH (08:42)
[2018-08-28] MEDS: Losartan 25 MG TAB PO SCH (08:43)
[2018-08-28] MEDS: Amlodipine 5 MG TAB PO SCH (08:43)
[2018-08-28] MEDS: Metoprolol Tartrate 25 MG TAB PO SCH ×2 (08:43→20:11)
--- NOTE | 2018-08-28 09:45 | PRG ---
DATE OF SERVICE: 08/28/2018 Cosmo appear to continue to complain of agonizing terrible leg pain. This is now involving both legs and particularly associated with walking. There is no specific neurologic deficit. We have exhausted all medical management. He had an uncomplicated decompression and I doubt there is any additional compressive lesions. We will check an ultrasound of the legs as well as arterial studies of the peripheral vasculature of the legs. I tried to reassure him. Job ID: [id number]
--- NOTE | 2018-08-28 11:25 | ULT ---
BILATERAL LOWER EXTREMITY VENOUS DOPPLER ULTRASOUND: INDICATIONS: Status post lumbar back surgery with bilateral leg pain. TECHNIQUE: Paz-scale, color Doppler, and vascular duplex with spectral analysis was performed of the deep venou s structures of both lower extremities. The common femoral vein, superficial femoral vein, popliteal vein, posterior tibial vein, proximal greater saphenous, and proximal profunda veins were assessed b ilaterally. FINDINGS: There is normal compression, flow, and augmentation seen within the deep venous structures of both lo wer extremities. Mildly prominent lymph nodes are seen within the bilateral inguinal region, which a re nonspecific. IMPRESSION: 1. No evidence of deep venous thrombosis within both lower extremities. 2. Mildly prominent inguinal lymph nodes. POS: [facility]
--- NOTE | 2018-08-28 11:33 | PDOC.PN ---
- Subjective Encounter Start Date: 08/28/18 Encounter Start Time: 11:31 Subjective: cntinues to c/o severe leg pain b/l starting from lower back -: no CP/SOB/fever etc - Objective Resuscitation Status - Order Detail: 08/21/18 15:50 Resuscitation Status Routine Resuscitation Status: DNAR: NO Resuscitation Discussed with: Patient SHERRI Reviewed: Yes Vital Signs & Weight: Vital Signs (12 hours) Temp Pulse Resp BP BP Pulse Ox 08/28/18 08:43 74 08/28/18 07:45 98.2 F 52 L 20 115/62 94 L 08/28/18 04:37 98.2 F 68 17 117/69 93 L 08/28/18 00:21 98 F 63 17 105/62 94 L Weight Weight 189 lb 3 oz I&O: 08/27/18 08/28/18 08/29/18 06:59 06:59 06:59 Intake Total 4562.5 3870 Balance 4562.5 3870 Result Diagrams: 08/28/18 05:06 08/28/18 05:06 Radiology Reviewed by me: Yes (Doppler US-no DVT b/l) Phys Exam - Physical Examination Constitutional: NAD sitting up in bed ,uncomfortable HEENT: PERRLA, moist MMs, sclera anicteric, oral pharynx no lesions Neck: no nodes, no JVD, supple, full ROM Respiratory: no wheezing, no rales, no rhonchi Cardiovascular: RRR, no significant murmur Gastrointestinal: soft, non-tender, no distention, positive bowel sounds Musculoskeletal: no edema, pulses present Neurological: non-focal, normal sensation, moves all 4 limbs Psychiatric: normal affect, A&O x 3 Skin: no rash Dx/Plan (1) Lumbar radicular pain Code(s): M54.16 - RADICULOPATHY, LUMBAR REGION Status: Acute Comment: Per NS. on Dilaudid pump and Neurontin (2) CAD (coronary artery disease) Code(s): I25.10 - ATHSCL HEART DISEASE OF [place] CORONARY ARTERY W/O ANG PCTRS Status: Chronic Qualifiers: Coronary Disease-Associated Artery/Lesion type: [place] artery Comment: s/p many stents, severe triple vessel disease, no further cardiac intervention, only medical management.ASA & Plavix on hold per primary team. On statin,BB,ARB,Ranexa,Imdur (3) Hyperlipidemia Code(s): E78.5 - HYPERLIPIDEMIA, UNSPECIFIED Status: Chronic Comment: continue statins (4) Hypertension Code(s): I10 - ESSENTIAL (PRIMARY) HYPERTENSION Status: Chronic Comment: continue home meds - Plan PT/OT, respiratory therapy, incentive spirometry, out of bed/ambulate, DVT proph w/SCDs Hemodynamically stable. cont home meds -: no changes from IM stand point.will follow from afar -: pain control per primary team * . Review of Systems - Review of Systems Constitutional: weakness, malaise. negative: fever, chills, sweats, other Eyes: negative: Pain, Vision Change, Conjunctivae Inflammation, Eyelid Inflammation, Redness, Other ENT: negative: Ear Pain, Ear Discharge, Nose Pain, Nose Discharge, Nose Congestion, Mouth Pain, Mouth Swelling, Throat Pain, Throat Swelling, Other Respiratory: negative: Cough, Dry, Shortness of Breath, Hemoptysis, SOB with Excertion, Pleuritic Pain, Sputum, Wheezing Cardiovascular: negative: chest pain, palpitations, orthopnea, paroxysmal nocturnal dyspnea, edema, light headedness, other Gastrointestinal: negative: Nausea, Vomiting, Abdominal Pain, Diarrhea, Constipation, Melena, Hematochezia, Other Genitourinary: negative: Dysuria, Frequency, Incontinence, Hematuria, Retention , Other Musculoskeletal: Leg Pain. negative: Neck Pain, Shoulder Pain, Arm Pain, Back Pain, Hand Pain, Foot Pain, Other - Medications/Allergies Allergies/Adverse Reactions: Allergies Allergy/AdvReac Type Severity Reaction Status Date / Time azithromycin Allergy Verified 08/20/18 18:02 [From Zithromax Z-Sb] ciprofloxacin [From Cipro] Allergy Verified 08/20/18 18:02 lisinopril Allergy Verified 08/20/18 18:02 rosuvastatin [From Crestor] Allergy Verified 08/20/18 18:02 Medications: Current Medications Acetaminophen (Tylenol) 650 mg PO Q4H PRN PRN Reason: Headache Last Admin: 08/23/18 13:23 Dose: 650 mg Al Hydroxide/Mg Hydroxide (Maalox) 30 ml PO Q4H PRN PRN Reason: Heartburn or Indigestion Last Admin: 08/24/18 16:59 Dose: 30 ml Amlodipine Besylate (Norvasc) 5 mg PO DAILY [facility] Last Admin: 08/28/18 08:43 Dose: 5 mg Atorvastatin Calcium (Lipitor) 40 mg PO HS [facility] Last Admin: 08/27/18 20:18 Dose: 40 mg Cholecalciferol (Vitamin D3) 1,000 units PO DAILY [facility] Last Admin: 08/28/18 08:42 Dose: 1,000 units Coenzyme Q10 (Coenzyme Q10) 100 mg PO DAILY [facility] Last Admin: 08/28/18 08:42 Dose: 100 mg Cyanocobalamin (Vitamin B-12) 1,000 mcg PO DAILY [facility] Last Admin: 08/28/18 08:42 Dose: 1,000 mcg Dexamethasone (Decadron) 4 mg SLOW IVP Q6H [facility] Last Admin: 08/28/18 07:15 Dose: 4 mg Diphenhydramine HCl (Benadryl) 25 mg IVP Q3H PRN PRN Reason: Itching Last Admin: 08/26/18 23:08 Dose: 25 mg Diphenhydramine HCl (Benadryl) 25 mg PO Q3H PRN PRN Reason: Itching Diphenhydramine HCl (Benadryl) 25 mg IM Q3H PRN PRN Reason: Itching Gabapentin (Neurontin) 600 mg PO TID [facility] Last Admin: 08/28/18 08:41 Dose: 600 mg Hydromorphone HCl (Dilaudid Cadd) 0 mg IV INF PRN PRN Reason: Pain Last Admin: 08/28/18 05:56 Dose: 10 mg Sodium Chloride (Normal Saline 0.9%) 1,000 mls @ 75 mls/hr IV .[id number] [facility] Last Admin: 08/28/18 02:54 Dose: Not Given Isosorbide Mononitrate (Imdur Er) 30 mg PO DAILY [facility] Last Admin: 08/28/18 08:42 Dose: 30 mg Ketorolac Tromethamine (Toradol) 30 mg IVP Q6H PRN PRN Reason: Moderate Pain (4-6) Stop: 08/29/18 22:48 Last Admin: 08/27/18 05:36 Dose: 30 mg Losartan Potassium (Cozaar) 25 mg PO DAILY [facility] Last Admin: 08/28/18 08:43 Dose: 25 mg Magnesium Hydroxide (Milk Of Magnesium) 30 ml PO Q12H PRN PRN Reason: Constipation Last Admin: 08/28/18 08:40 Dose: 30 ml Metoprolol Tartrate (Lopressor) 12.5 mg PO BID [facility] Last Admin: 08/28/18 08:43 Dose: 12.5 mg Naloxone HCl (Narcan) 0.2 mg IV Q5MIN PRN PRN Reason: Opiate Reversal Ondansetron HCl (Zofran) 4 mg IVP Q6H PRN PRN Reason: Nausea/Vomiting Pantoprazole Sodium (Protonix) 40 mg PO DAILY [facility] Last Admin: 08/28/18 08:41 Dose: 40 mg Polyethylene Glycol (Miralax) 17 gm PO DAILY [facility] Last Admin: 08/28/18 08:40 Dose: 17 gm Promethazine HCl (Phenergan) 12.5 mg PO Q4H PRN PRN Reason: Nausea/Vomiting Promethazine HCl (Phenergan Suppository) 12.5 mg [place] Q4H PRN PRN Reason: Nausea/Vomiting Promethazine HCl (Phenergan) 12.5 mg IM Q4H PRN PRN Reason: Nausea/Vomiting Ranolazine (Ranexa) 500 mg PO BID [facility] Last Admin: 08/28/18 08:42 Dose: 500 mg Sodium Chloride (Flush - Normal Saline) 10 ml IVF PRN PRN PRN Reason: Saline Flush Tizanidine HCl (Zanaflex) 4 mg PO Q6H PRN PRN Reason: MUSCLE SPASM Last Admin: 08/28/18 06:06 Dose: 4 mg Zolpidem Tartrate (Ambien) 5 mg PO HSPRN PRN PRN Reason: Insomnia
--- NOTE | 2018-08-28 11:42 | ULT ---
ARTERIAL DOPPLER EVALUATION OF BILATERAL LOWER EXTREMITIES: INDICATIONS: Concern for arterial occlusion. Bilateral lower extremity pain. FINDINGS: There is triphasic waveform seen within the arterial structures of bilateral lower extremities. No h emodynamically significant stenosis is demonstrated. IMPRESSION: Triphasic waveforms within both lower extremities. No hemodynamically significant stenosis demonstra ramin. POS: [facility]
[2018-08-28] MEDS: Acetaminophen 325 MG TAB PO PRN (12:25)
[2018-08-28] MEDS ORDERED: Magnesium Citrate 300 ML BOT PO SCH (20:00)
[2018-08-28] MEDS: Atorvastatin Calcium 40 MG TAB PO SCH (20:11)
[2018-08-29] MEDS: Dexamethasone 4 mg/ml Vial SLOW IVP SCH ×2 (01:06→06:19)
[2018-08-29] MEDS: Sodium Chloride 0.9% 1,000 ML IV SCH ×2 (03:10→16:12)
[2018-08-29] MEDS: tiZANidine HCl 4 MG TAB PO PRN (03:49)
[2018-08-29] MEDS: Dexamethasone 1 MG TAB PO SCH ×3 (06:28→18:25)
[2018-08-29] MEDS: HYDROmorphone 10 mg/100 ml CADD IV PRN (06:47)
[2018-08-29] MEDS: Ubidecarenone 50 MG CAP PO SCH (08:56)
[2018-08-29] MEDS: Acetaminophen 325 MG TAB PO PRN (08:56)
[2018-08-29] MEDS: Losartan 25 MG TAB PO SCH (08:56)
[2018-08-29] MEDS: Metoprolol Tartrate 25 MG TAB PO SCH ×2 (08:57→20:13)
[2018-08-29] MEDS: Cyanocobalamin (Vitamin B-12) 1,000 MCG TAB PO SCH (08:57)
[2018-08-29] MEDS: Polyethylene Glycol 3350 17 GM Packet PO SCH (08:58)
[2018-08-29] MEDS: Amlodipine 5 MG TAB PO SCH (08:58)
[2018-08-29] MEDS: Gabapentin 300 MG CAP PO SCH ×3 (09:05→20:13)
--- NOTE | 2018-08-29 09:12 | PQF ---
CLINICAL DOCUMENTATION IMPROVEMENT CLARIFICATION FORM: ICD-10 Updated PLEASE DO AN ADDENDUM TO THE PROGRESS NOTE WITH ANY DOCUMENTATION UPDATES OR ADDITIONS AND CARRY THROUGH TO DC SUMMARY. THANK YOU. DATE: 09/04/18 ATTN: LYRIC HOYOS Please exercise your independent, professional judgment in responding to the clarification form. Clinical indicators are provided on the bottom of this form for your review Please check appropriate box(s): [ ] CSF LEAK is a complication of current/recent surgery [ ] CSF LEAK is NOT a complication of current/recent surgery [ ] Other diagnosis [ ] Unable to determine In addition, please specify: Present on Admission (POA): [ ] Yes [ ] No [ ] Unable to determine CLINICAL INDICATORS - SIGNS / SYMPTOMS / LABS OP NOTE: "IN THE REGION OF L3 WHERE THE PREVIOUS SURGERY HAD BEEN PERFORMED, ARPIT CSF WAS EMANATING FROM THE DURA WHERE IT HAD PREVIOUSLY BEEN ATTENUATED." PROGRESS NOTE 08/24: "CSF LEAK FOUND DURING SURGERY" RISKS: PREVIOUS SPINAL FUSION TREATMENT: EXPLORATION OF FUSION WITH REINFORCEMENT OF GELFOAM AND DURASEAL FIBRIN SEALANT (OP NOTE) (This form is maintained as a part of the permanent medical record) 2014 [place], [employer]. All Rights Reserved [email or web address] Office: [phone] [facility]
[2018-08-29] MEDS ORDERED: Iopamidol-M 300 61% 15 ML VIAL ONE (10:02)
[2018-08-29] MEDS ORDERED: Sodium Bicarbonate 2.5 MEQ/5 ML VIAL ONE (11:19)
[2018-08-29] MEDS: Ketorolac Tromethamine 30 MG/ML VIAL IVP PRN (13:47)
--- NOTE | 2018-08-29 13:56 | PDOC.EVN ---
Event Note - Event Note Event Note: Went to see the pt but he was gone for Myelogram. BP stable. cont meds.
--- NOTE | 2018-08-29 15:51 | CT ---
MYELOGRAM [address] LUMBAR SPINE WITH CONTRAST CT THORACIC SPINE WITH CONTRAST: (CT MYELOGRAM OF LUMBAR SPINE AND THORACIC SPINE) Date: 08/29/18 HISTORY: 58-year-old male with severe thoracic and lumbar spinal pain. Recently status post lumbar decompressi ve surgery and fusion. COMPARISON: None available. TECHNIQUE: Signed, informed consent obtained. Initially attempted under fluoroscopy. 22 gauge spinal needle was advanced through the midline laminectomy defect at lower lumbar spine. There was return of hemorrhag ic CSF. The needle was removed. The patient was then moved to CT suite for CT-guided lumbar punctur e. Patient was placed prone on CT table. Skin of lower back was prepared and draped in usual sterile fashion. 25 gauge needle was used to apply buffered lidocaine superficially just to the left of the r ecent laminectomy midline skin surgical wound. Under step CT guidance, a new 22 gauge 3.5 spinal n eedle was advanced into the posterior aspect of the thecal sac through the laminectomy defect at the lower lumbar spine. There was return of frankly hemorrhagic fluid. A total of 10 mL of Isovue M300 w as injected intrathecally. Needle was removed. Patient experienced extreme pain during and immediatel y after the injection of iodinated contrast into the thecal sac. Patient was placed on stretcher, and was placed in slightly Trendelenburg position to allow the contrast to flow to the thoracic spine. H e was rotated to the right and left to allow good mixture of the contrast material in the thecal sac. He was placed back on the CT table, and axial scan was performed from C7 through the mid sacrum. Coronal and sagittal reconstructions of thoracic spine and lumbar spine. Patient left the CT scanner in stable condition. FINDINGS: There are bilateral peripheral upper lobe pulmonary alveolar infiltrates, right greater than left, on ly partially imaged. There is a 2 mm calculus in a right renal mid-upper pole calyx. There are two calculi adjacent to eac h other in one of the contralateral left lower-mid pole calices. The larger one is approximately 3 mm . There is no high grade hydronephrosis. However, the urinary bladder is very distended. There are 12 rib-bearing thoracic-type vertebrae. There is a transitional level at the lumbosacral ju nction. Inferior to the L5 level, the transitional level has bilateral large transverse processes beverly t are fused with bilateral S1 sacral alae. This level will be somewhat arbitrarily designated as L6 ( the alternative designation would be a partially lumbarized S1). There is no scoliosis. Other than minimal, chronic-appearing anterior wedging of L1, the vertebral nathaly dy heights are maintained. There is no spondylolisthesis. There are bilateral pedicle screws at L4, L5, and L6. There are bone grafts at the L4-5 and L5-6 disc spaces with associated osseous bridges between the end plates at L4-5 and L5-S1 indicating successfu l ankylosis. Furthermore, bilateral onlay bone graft fusions of the posterior elements also demonstra te successfully ankylosis. There is no evidence of loosening of hardware of the pedicle screws. There are wide, decompressive laminectomy defects from L3-4 through L6-S1. The bilateral L4 pedicle screws are entirely within bone. The right L5 pedicle screw traverses the ri ght lateral recess. The left L6 pedicle screw minimally traverses the peripheral edge of the lateral recess. Conus medullaris terminates at L2. In the thoracic spine, there is no high grade central spinal canal stenosis or high grade thecal sac stenosis, at any level. At T8-9, there is a tiny central disc protrusion which abuts the ventral surface of the spinal cord w ithout indenting it. There is poor contrast opacification of the thecal sac from C7-T1 to mid T2 leve l. No timothy cord compression at those levels. No high grade timothy cord compression at any level. No h igh grade bony neural foraminal stenosis at any level in the thoracic spine. There are vertically esther ngated multiple thin linear strands of soft tissue density material in the posterior aspect of the ex tramedullary-intradural space, contacting both the dorsal surface of the spinal cord and the dorsal w all of the thecal sac. This is most prominent from T7-8 through T11 levels at midline and slightly to the left of midline. In the lumbar spine, there is crowding of the cauda equina and effacement of the intrathecal contrast material from upper L3 through L3-4 level. The degree of central spinal canal stenosis and thecal sa c stenosis is moderate throughout the L3 level, and moderate-severe at the lower L3 and L3-4 level. T he crowding of the cauda equina is at least in part due to this thecal sac stenosis, but some of it i s also due to material within the thecal sac around the nerve roots. The crowding at this level cause s tortuosity of the cauda equina at several levels superior and several levels inferior to this. There is no central spinal canal stenosis at L4. There is very capacious caliber of the thecal sac th rough the levels of laminectomy from L4-5 through S1. No central lumbar spinal stenosis superior to L 3 level. No severe disc space narrowing at any level. The bilateral L3-4 neural foramina are filled with soft tissue density material, right greater than l eft. This could be postsurgical granulation tissue or scar tissue. It would be difficult to completel y rule out disc herniation as the cause of this. There is deformation of the exiting right L3 nerve r oot in the right neural foramen. There is bilateral neural foraminal stenosis at L4-5. There is moderate left neural foraminal stenosi s at L5-6. No significant neural foraminal stenosis at other levels in the lumbar spine. IMPRESSION: 1. Transitional level at lumbosacral junction. 2. Status post posterior lumbar interbody fusion (with pedicle screws) at L4-L5-L6, with successful ankylosis between the vertebral bodies and successful ankylosis of the bilateral posterior elements w ith onlay bone grafts. 3. Effacement of intrathecal contrast material at L3 through L3-4. Part of this is due to diffuse di sc bulge at L3-4 causing moderate thecal sac stenosis, but much of this is due to intradural (intrath ecal) low attenuation, ill-defined material which may represent subarachnoid blood. This causes clump ing of the nerve roots at this level and resultant tortuosity of the cauda equina several levels supe rior and inferior to this. 4. No other level of high grade thecal sac stenosis in the lumbar spine or thoracic spine. 5. Thin strands of material in the dorsal aspect of the extramedullary-intradural space (subarachnoi d space) abutting the dorsal surface of the thoracic spinal cord and the posterior wall of thecal sac , at multiple levels. This presumably represents long strands of blood clots. The differential diagno sis for this intrathecal material both in the thoracic spinal canal and lumbar spine canal includes b lood clots, purulent material, and/or scar tissue, in the subarachnoid space. 6. High grade bilateral soft tissue neural foraminal stenosis at L3-4 by material that could represe nt postsurgical granulation tissue, scar tissue, and less likely herniated disc material. 7. Bilateral upper lobe pulmonary infiltrates, right greater than left. Pneumonia vs pulmonary cont usions vs pulmonary infarctions. Recommend clinical correlation. 8. Bilateral nephrolithiasis. 9. Very distended urinary bladder. POS: [facility]
[2018-08-29] MEDS ORDERED: HYDROcodone/Acetaminophen 10/325 mg Tablet PO PRN (18:16)
[2018-08-29] MEDS ORDERED: traMADol HCl 50 MG TAB PO PRN (18:17)
[2018-08-29] MEDS: Pregabalin 75 MG CAP PO SCH (20:13)
[2018-08-29] MEDS: Atorvastatin Calcium 40 MG TAB PO SCH (20:13)
[2018-08-29] MEDS ORDERED: fentaNYL 50 mcg/hour Patch TD SCH (21:00)
[2018-08-30] MEDS: Sodium Chloride 0.9% 1,000 ML IV SCH ×2 (05:44→17:51)
[2018-08-30] MEDS: Dexamethasone 1 MG TAB PO SCH (08:39)
[2018-08-30] MEDS: Ubidecarenone 50 MG CAP PO SCH (08:39)
[2018-08-30] MEDS: Pregabalin 75 MG CAP PO SCH ×2 (08:39→20:57)
[2018-08-30] MEDS: Metoprolol Tartrate 25 MG TAB PO SCH (08:40)
[2018-08-30] MEDS: Amlodipine 5 MG TAB PO SCH (08:40)
[2018-08-30] MEDS: Gabapentin 300 MG CAP PO SCH ×3 (08:40→20:58)
[2018-08-30] MEDS: Cyanocobalamin (Vitamin B-12) 1,000 MCG TAB PO SCH (08:41)
[2018-08-30] MEDS: Polyethylene Glycol 3350 17 GM Packet PO SCH (08:41)
[2018-08-30] MEDS: Losartan 25 MG TAB PO SCH (08:41)
[2018-08-30] MEDS: HYDROcodone/Acetaminophen 10/325 mg Tablet PO PRN ×2 (09:05→15:55)
--- NOTE | 2018-08-30 09:21 | PRG ---
DATE OF SERVICE: 08/30/2018 SUBJECTIVE: I reviewed with Mr. Wilburn and his . He continues to have a significant leg pain, although he was able to sleep comfortably last night. When he is not ambulating, his pain is quite well controlled. He was switched to fentanyl patches and hydrocodone yesterday with good results and he is ready to stop the [employer] today. We also instituted Lyrica on top of his gabapentin, which is also likely to be a useful strategy. The patient's exam again reveals no motor deficit and no specific sensory deficit. Review of his vascular studies from two days ago reveals no evidence of abnormality. With respect to his myelogram, the postoperative results are fairly typical for this point postoperatively. There is fluid in the surgical bed. There is slow movement of dye across the surgical region, but the dural tube is quite patent and there is no evidence of severe stenosis in the region of the surgery. I suspect that we are looking at intradural adhesions presumably related to the severe stenosis and I anticipate this will improve over time. There are no indications for any further surgery. IMPRESSION AND PLAN: I discussed the situation at length with Dr. Wilburn and his and reassured them. My conclusion from all the postoperative studies is that we are dealing with persistent radicular pain related to the preoperative stenosis and given the successful decompression, I am optimistic that this will improve over time. We have used steroids and will stop these today and we will continue with narcotic pain medicine, Lyrica, and gabapentin. He is medically ready for rehab today and it is my understanding that the patient and are amenable to this. Job ID: [id number]
[2018-08-30 11:19] LABS: #Basophils 0.1 thou/uL (0.0-0.2); #Lymphocytes 0.8 thou/uL (1.20-3.40); #Monocytes 0.8 thou/uL (0.11-0.59); %Basophils 0.7 % (0.0-1.0); %Eosinophils 0.1 % (0.0-10.0); %Lymphocytes 10.7 % (21.0-51.0); %Monocytes 10.4 % (0.0-10.0); Hemoglobin 10.5 g/dL (14.0-18.0); Mean Corpuscular HGB CONC 32.9 g/dL (32.0-36.0); Mean Corpuscular Hemoglobin 30.7 pg (27.0-31.0); Mean Corpuscular Volume 93.2 fL (78.0-98.0); Mean Platelet Volume 7.3 fL (7.4-10.4); Platelet Count 166 thou/uL (130-400); Red Blood Cell (RBC) Count 3.43 mill/uL (4.70-6.10); White Blood Cell (WBC) Count 7.7 thou/uL (4.8-10.8)
--- NOTE | 2018-08-30 12:45 | RAD ---
PORTABLE CHEST: HISTORY: Cough. Evaluation for pneumonia. FINDINGS: Heart size appears slightly enlarged. Lungs appear clear of any infiltrates. There is some minimal blunting to the left costophrenic angle which could be chronic in nature. IMPRESSION: Cardiomegaly. No evidence of focal infiltrates. POS: [facility]
--- NOTE | 2018-08-30 13:37 | PDOC.PN ---
- Subjective Encounter Start Date: 08/30/18 Encounter Start Time: 13:35 Subjective: still with significalt b/l leg pain and headache -: feels poorly -: care discussed w at bedside - Objective Resuscitation Status - Order Detail: 08/21/18 15:50 Resuscitation Status Routine Resuscitation Status: DNAR: NO Resuscitation Discussed with: Patient MAR Reviewed: Yes Vital Signs & Weight: Vital Signs (12 hours) Temp Pulse Resp BP BP BP Pulse Ox 08/30/18 11:43 98 F 48 L 18 109/61 94 L 08/30/18 08:40 65 135/72 08/30/18 07:28 98.1 F 48 L 14 135/75 100 08/30/18 04:19 98.4 F 50 L 18 129/68 96 Weight Admit Weight 189 lb 3.2 oz Weight 189 lb 3 oz I&O: 08/29/18 08/30/18 08/31/18 06:59 06:59 06:59 Intake Total 3240 1080 Balance 3240 1080 Result Diagrams: 08/30/18 11:05 08/28/18 05:06 Radiology Reviewed by me: Yes (CXR- no inflitrates) Phys Exam - Physical Examination sleeping w wet rag on head HEENT: PERRLA, moist MMs, sclera anicteric, oral pharynx no lesions Neck: no JVD Respiratory: no wheezing, no rales, no rhonchi Cardiovascular: RRR, no significant murmur Gastrointestinal: soft, non-tender, no distention, positive bowel sounds Musculoskeletal: no edema, pulses present Neurological: moves all 4 limbs Dx/Plan (1) Lumbar radicular pain Code(s): M54.16 - RADICULOPATHY, LUMBAR REGION Status: Acute Comment: Per NS. on Dilaudid pump and Neurontin (2) CAD (coronary artery disease) Code(s): I25.10 - ATHSCL HEART DISEASE OF [place] CORONARY ARTERY W/O ANG PCTRS Status: Chronic Qualifiers: Coronary Disease-Associated Artery/Lesion type: [place] artery Comment: s/p many stents, severe triple vessel disease, no further cardiac intervention, only medical management.ASA & Plavix on hold per primary team. On statin,BB,ARB,Ranexa,Imdur (3) Hyperlipidemia Code(s): E78.5 - HYPERLIPIDEMIA, UNSPECIFIED Status: Chronic Comment: continue statins (4) Hypertension Code(s): I10 - ESSENTIAL (PRIMARY) HYPERTENSION Status: Chronic Comment: continue home meds - Plan plan discussed w/ family, PT/OT, DVT proph w/SCDs WBC NL. no PNA on CXR.no indication for ABx -: HR low.will stop Metoprolol.change to low dose Coreg given CAD -: increase Losartan to control BP. monitor -: cont pain meds,lyrica & neurontin per primary team -: IM team will follow * . Review of Systems - Review of Systems Constitutional: weakness, malaise. negative: fever, chills, sweats, other ENT: negative: Ear Pain, Ear Discharge, Nose Pain, Nose Discharge, Nose Congestion, Mouth Pain, Mouth Swelling, Throat Pain, Throat Swelling, Other Respiratory: negative: Cough, Dry, Shortness of Breath, Hemoptysis, SOB with Excertion, Pleuritic Pain, Sputum, Wheezing Cardiovascular: negative: chest pain, palpitations, orthopnea, paroxysmal nocturnal dyspnea, edema, light headedness, other Gastrointestinal: negative: Nausea, Vomiting, Abdominal Pain, Diarrhea, Constipation, Melena, Hematochezia, Other Genitourinary: negative: Dysuria, Frequency, Incontinence, Hematuria, Retention , Other Musculoskeletal: Leg Pain Skin: negative: Rash, Lesions, Vernon, Bruising, Other - Medications/Allergies Allergies/Adverse Reactions: Allergies Allergy/AdvReac Type Severity Reaction Status Date / Time azithromycin Allergy Verified 08/20/18 18:02 [From Zithromax Z-Sb] ciprofloxacin [From Cipro] Allergy Verified 08/20/18 18:02 lisinopril Allergy Verified 08/20/18 18:02 rosuvastatin [From Crestor] Allergy Verified 08/20/18 18:02 Medications: Current Medications Acetaminophen (Tylenol) 650 mg PO Q4H PRN PRN Reason: Headache Last Admin: 08/29/18 08:56 Dose: 650 mg Hydrocodone Bitart/Acetaminophen ([place] 10/325) 1 tab PO Q4H PRN PRN Reason: Moderate Pain (2-4) Last Admin: 08/29/18 18:25 Dose: 1 tab Hydrocodone Bitart/Acetaminophen ([place] 10/325) 2 tab PO Q4H PRN PRN Reason: Moderate to Severe Pain (5-10) Last Admin: 08/30/18 09:05 Dose: 2 tab Al Hydroxide/Mg Hydroxide (Maalox) 30 ml PO Q4H PRN PRN Reason: Heartburn or Indigestion Last Admin: 08/24/18 16:59 Dose: 30 ml Amlodipine Besylate (Norvasc) 5 mg PO DAILY [facility] Last Admin: 08/30/18 08:40 Dose: 5 mg Atorvastatin Calcium (Lipitor) 40 mg PO HS [facility] Last Admin: 08/29/18 20:13 Dose: 40 mg Carvedilol (Coreg) 3.125 mg PO BID-[facility] Cholecalciferol (Vitamin D3) 1,000 units PO DAILY [facility] Last Admin: 08/30/18 08:41 Dose: 1,000 units Coenzyme Q10 (Coenzyme Q10) 100 mg PO DAILY [facility] Last Admin: 08/30/18 08:39 Dose: 100 mg Cyanocobalamin (Vitamin B-12) 1,000 mcg PO DAILY [facility] Last Admin: 08/30/18 08:41 Dose: 1,000 mcg Diphenhydramine HCl (Benadryl) 25 mg IVP Q3H PRN PRN Reason: Itching Last Admin: 08/26/18 23:08 Dose: 25 mg Diphenhydramine HCl (Benadryl) 25 mg PO Q3H PRN PRN Reason: Itching Diphenhydramine HCl (Benadryl) 25 mg IM Q3H PRN PRN Reason: Itching Fentanyl (Duragesic) 50 mcg TD Q3D [facility] Last Admin: 08/29/18 18:54 Dose: 50 mcg Gabapentin (Neurontin) 600 mg PO TID [facility] Last Admin: 08/30/18 08:40 Dose: 600 mg Sodium Chloride (Normal Saline 0.9%) 1,000 mls @ 75 mls/hr IV .[id number] [facility] Last Admin: 08/30/18 05:44 Dose: Not Given Isosorbide Mononitrate (Imdur Er) 30 mg PO DAILY [facility] Last Admin: 08/30/18 08:40 Dose: 30 mg Lactulose (Lactulose) 20 gm PO TIDPRN PRN PRN Reason: Constipation Last Admin: 08/29/18 13:51 Dose: 20 gm Losartan Potassium (Cozaar) 50 mg PO DAILY [facility] Magnesium Hydroxide (Milk Of Magnesium) 30 ml PO Q12H PRN PRN Reason: Constipation Last Admin: 08/28/18 08:40 Dose: 30 ml Naloxone HCl (Narcan) 0.2 mg IV Q5MIN PRN PRN Reason: Opiate Reversal Ondansetron HCl (Zofran) 4 mg IVP Q6H PRN PRN Reason: Nausea/Vomiting Pantoprazole Sodium (Protonix) 40 mg PO DAILY [facility] Last Admin: 08/30/18 08:41 Dose: 40 mg Polyethylene Glycol (Miralax) 17 gm PO DAILY [facility] Last Admin: 08/30/18 08:41 Dose: 17 gm Pregabalin (Lyrica) 75 mg PO BID [facility] Last Admin: 08/30/18 08:39 Dose: 75 mg Promethazine HCl (Phenergan) 12.5 mg PO Q4H PRN PRN Reason: Nausea/Vomiting Promethazine HCl (Phenergan Suppository) 12.5 mg MD Q4H PRN PRN Reason: Nausea/Vomiting Promethazine HCl (Phenergan) 12.5 mg IM Q4H PRN PRN Reason: Nausea/Vomiting Ranolazine (Ranexa) 500 mg PO BID [facility] Last Admin: 08/30/18 08:40 Dose: 500 mg Sodium Chloride (Flush - Normal Saline) 10 ml IVF PRN PRN PRN Reason: Saline Flush Tizanidine HCl (Zanaflex) 4 mg PO Q6H PRN PRN Reason: MUSCLE SPASM Last Admin: 08/29/18 03:49 Dose: 4 mg Tramadol HCl (Ultram) 100 mg PO Q6H PRN PRN Reason: Pain Zolpidem Tartrate (Ambien) 5 mg PO HSPRN PRN PRN Reason: Insomnia
[2018-08-30] MEDS: Carvedilol 3.125 MG TAB PO SCH (15:55)
[2018-08-30] MEDS: Mag-Al 1200 mg/1200 mg/30 ML UDCUP PO PRN (20:56)
[2018-08-30] MEDS: Atorvastatin Calcium 40 MG TAB PO SCH (20:56)
[2018-08-30] MEDS: tiZANidine HCl 4 MG TAB PO PRN (20:59)
[2018-08-31] MEDS: Acetaminophen 325 MG TAB PO PRN ×2 (01:03→18:04)
[2018-08-31 07:40] LABS: Anion Gap 8 mmol/L (10-20); BUN (Urea Nitrogen) 15 mg/dL (8.4-25.7); Calc. Creatinine Clearance 134 mL/min (70-130); Calcium 8.6 mg/dL (7.8-10.44); Carbon Dioxide 29 mmol/L (22-29); Chloride 100 mmol/L (98-107); Estimated GFR-MDRD Greater than 90; Glucose 133 mg/dL (70-105); Potassium 3.8 mmol/L (3.5-5.1); Sodium 133 mmol/L (136-145)
[2018-08-31] MEDS: Amlodipine 5 MG TAB PO SCH (09:45)
[2018-08-31] MEDS: Sodium Chloride 0.9% 1,000 ML IV SCH ×2 (13:15→20:27)
[2018-08-31] MEDS: Carvedilol 3.125 MG TAB PO SCH ×2 (13:16→17:53)
[2018-08-31] MEDS: Losartan 25 MG TAB PO SCH (13:17)
[2018-08-31] MEDS: Gabapentin 300 MG CAP PO SCH ×3 (13:17→20:11)
[2018-08-31] MEDS: Cyanocobalamin (Vitamin B-12) 1,000 MCG TAB PO SCH (13:17)
[2018-08-31] MEDS: Pregabalin 75 MG CAP PO SCH ×2 (13:18→20:11)
[2018-08-31] MEDS: Polyethylene Glycol 3350 17 GM Packet PO SCH (13:18)
[2018-08-31] MEDS: Ubidecarenone 50 MG CAP PO SCH (13:18)
--- NOTE | 2018-08-31 14:53 | PDOC.EVN ---
Event Note - Event Note Event Note: chart reviewed. BP controlled but HR still low. Most likley due to multiple pain meds also Pt changed from Toprol XL to Coreg BID given h/o CAD.monitor. Pain control per primary team
[2018-08-31] MEDS ORDERED: hydrALAZINE 20 MG/ML VIAL SLOW IVP PRN (15:28)
[2018-08-31] MEDS ORDERED: Pantoprazole 40 MG VIAL IVP SCH (16:00)
[2018-08-31] MEDS: tiZANidine HCl 4 MG TAB PO PRN (18:03)
[2018-08-31] MEDS: Atorvastatin Calcium 40 MG TAB PO SCH (20:11)
--- NOTE | 2018-09-01 08:55 | PRG ---
DATE OF SERVICE: 09/01/2018 Mr. Wilburn is on the 12th day of his hospital stay following lumbar decompression with Dr. Andino. He had been doing well until yesterday and then unfortunately started to have either a globus sensation or legitimately something as he describes a caught in his throat. He actually vomited this morning after attempting to eat breakfast and has been nauseous all day yesterday. Hospitalist has ordered a speech therapy consultation to see if this is swallowing disorder or there is something true to investigate from an obstructive standpoint as he is no longer taking pain medications secondary to this sensation. His pain this morning has increased, which is not terribly unexpected given the fact that he has not really taken any pain medications in the last 18 hours. I will see if there is anything we can add in the meantime through the IV to help with some of the pains that he is experiencing. Otherwise, we will continue to follow. No decision yet from rehab as insurance is yet to approve nor deny. We will look for this to occur tomorrow. Job ID: [id number]
[2018-09-01] MEDS: Amlodipine 5 MG TAB PO SCH ×2 (09:00→13:09)
[2018-09-01] MEDS ORDERED: Pantoprazole 40 MG VIAL IVP SCH (09:00)
[2018-09-01] MEDS ORDERED: Morphine 4 MG/ML VIAL SLOW IVP PRN (09:08)
[2018-09-01] MEDS: HYDROcodone/Acetaminophen 10/325 mg Tablet PO PRN ×3 (09:43→21:05)
[2018-09-01] MEDS: Pregabalin 75 MG CAP PO SCH ×2 (09:47→21:06)
[2018-09-01] MEDS: Gabapentin 300 MG CAP PO SCH ×3 (09:49→21:04)
[2018-09-01] MEDS: Cyanocobalamin (Vitamin B-12) 1,000 MCG TAB PO SCH (10:54)
[2018-09-01] MEDS: tiZANidine HCl 4 MG TAB PO PRN ×2 (11:00→18:18)
[2018-09-01] MEDS: Sodium Chloride 0.9% 1,000 ML IV SCH (11:01)
[2018-09-01] MEDS: Losartan 25 MG TAB PO SCH (13:08)
[2018-09-01] MEDS: Ubidecarenone 50 MG CAP PO SCH ×2 (13:09)
[2018-09-01] MEDS: Polyethylene Glycol 3350 17 GM Packet PO SCH (13:11)
--- NOTE | 2018-09-01 13:56 | PDOC.PN ---
- Subjective Encounter Start Date: 09/01/18 Encounter Start Time: 13:54 Subjective: feels a littl ebetter this morning. -: was able to take some meds after being crushed - Objective Resuscitation Status - Order Detail: 08/21/18 15:50 Resuscitation Status Routine Resuscitation Status: DNAR: NO Resuscitation Discussed with: Patient SHERRI Reviewed: Yes Vital Signs & Weight: Vital Signs (12 hours) Temp Pulse Resp BP BP Pulse Ox 09/01/18 09:00 52 L 09/01/18 07:20 98.4 F 52 L 14 115/60 95 09/01/18 04:27 98.2 F 51 L 18 128/77 97 Weight Admit Weight 189 lb 3.2 oz Weight 189 lb 3 oz I&O: 08/31/18 09/01/18 09/02/18 06:59 06:59 06:59 Intake Total 500 Balance 500 Result Diagrams: 08/30/18 11:05 08/31/18 07:02 Phys Exam - Physical Examination Constitutional: NAD resting comfortably as he just got zanaflex and norco HEENT: PERRLA, moist MMs, sclera anicteric, oral pharynx no lesions Neck: no nodes, no JVD, supple, full ROM Respiratory: no wheezing, no rales, no rhonchi Cardiovascular: RRR, no significant murmur Gastrointestinal: soft, non-tender, no distention, positive bowel sounds Musculoskeletal: no edema, pulses present Neurological: non-focal, normal sensation, moves all 4 limbs Psychiatric: normal affect, A&O x 3 Skin: no rash Dx/Plan (1) Dysphagia Code(s): R13.10 - DYSPHAGIA, UNSPECIFIED Status: Acute Comment: MEDIA REPORTER eval pending. GI eval done and cleared for soft foods and tolerating it so far. (2) Sinus bradycardia Code(s): R00.1 - BRADYCARDIA, UNSPECIFIED Status: Acute Comment: Likley Due to BB and pain meds combination.Will reduce coreg to 1/2 tab and monitor.Pt with significant CAD so will avoid stopping BB if HR calderon snot drop too low or pt symptomatic (3) Lumbar radicular pain Code(s): M54.16 - RADICULOPATHY, LUMBAR REGION Status: Acute Comment: Per NS. on norco,Lyrica ,Neurontin.Fentanyl patch stopped per Pt request.manage per primary team (4) CAD (coronary artery disease) Code(s): I25.10 - ATHSCL HEART DISEASE OF [place] CORONARY ARTERY W/O ANG PCTRS Status: Chronic Qualifiers: Coronary Disease-Associated Artery/Lesion type: [place] artery Comment: s/p many stents, severe triple vessel disease, no further cardiac intervention, only medical management.ASA & Plavix on hold per primary team. On statin,BB,ARB,Ranexa,Imdur (5) Hyperlipidemia Code(s): E78.5 - HYPERLIPIDEMIA, UNSPECIFIED Status: Chronic Comment: continue statins (6) Hypertension Code(s): I10 - ESSENTIAL (PRIMARY) HYPERTENSION Status: Chronic Comment: continue home meds - Plan DVT proph w/SCDs appreciate GI input -: add MagCitrate for severe constipation -: HD stable. monitor HR and BP.losartan dos eincreased to accomodate for -: lowering the dose of BB . -: IM team will follow * . Review of Systems - Review of Systems Constitutional: weakness, malaise ENT: negative: Ear Pain, Ear Discharge, Nose Pain, Nose Discharge, Nose Congestion, Mouth Pain, Mouth Swelling, Throat Pain, Throat Swelling, Other Cardiovascular: negative: chest pain, palpitations, orthopnea, paroxysmal nocturnal dyspnea, edema, light headedness, other Gastrointestinal: Nausea, Constipation Genitourinary: negative: Dysuria, Frequency, Incontinence, Hematuria, Retention , Other Musculoskeletal: Back Pain, Leg Pain. negative: Neck Pain, Shoulder Pain, Arm Pain, Hand Pain, Foot Pain, Other Skin: negative: Rash, Lesions, Vernon, Bruising, Other - Medications/Allergies Allergies/Adverse Reactions: Allergies Allergy/AdvReac Type Severity Reaction Status Date / Time azithromycin Allergy Verified 08/20/18 18:02 [From Zithromax Z-Sb] ciprofloxacin [From Cipro] Allergy Verified 08/20/18 18:02 lisinopril Allergy Verified 08/20/18 18:02 rosuvastatin [From Crestor] Allergy Verified 08/20/18 18:02 Medications: Current Medications Acetaminophen (Tylenol) 650 mg PO Q4H PRN PRN Reason: Headache Last Admin: 08/31/18 18:04 Dose: 650 mg Hydrocodone Bitart/Acetaminophen ([place] 10/325) 1 tab PO Q4H PRN PRN Reason: Moderate Pain (2-4) Last Admin: 08/29/18 18:25 Dose: 1 tab Hydrocodone Bitart/Acetaminophen ([place] 10/325) 2 tab PO Q4H PRN PRN Reason: Moderate to Severe Pain (5-10) Last Admin: 09/01/18 13:22 Dose: 2 tab Al Hydroxide/Mg Hydroxide (Maalox) 30 ml PO Q4H PRN PRN Reason: Heartburn or Indigestion Last Admin: 08/30/18 20:56 Dose: 30 ml Amlodipine Besylate (Norvasc) 5 mg PO DAILY [facility] Last Admin: 09/01/18 13:09 Dose: 5 mg Atorvastatin Calcium (Lipitor) 40 mg PO HS [facility] Last Admin: 08/31/18 20:11 Dose: Not Given [facility] Cholecalciferol (Vitamin D3) 1,000 units PO DAILY [facility] Last Admin: 09/01/18 10:54 Dose: Not Given Coenzyme Q10 (Coenzyme Q10) 100 mg PO DAILY [facility] Last Admin: 09/01/18 13:09 Dose: 100 mg Cyanocobalamin (Vitamin B-12) 1,000 mcg PO DAILY [facility] Last Admin: 09/01/18 10:54 Dose: Not Given Diphenhydramine HCl (Benadryl) 25 mg IVP Q3H PRN PRN Reason: Itching Last Admin: 08/26/18 23:08 Dose: 25 mg Diphenhydramine HCl (Benadryl) 25 mg PO Q3H PRN PRN Reason: Itching Diphenhydramine HCl (Benadryl) 25 mg IM Q3H PRN PRN Reason: Itching Gabapentin (Neurontin) 600 mg PO TID [facility] Last Admin: 09/01/18 09:49 Dose: 600 mg Hydralazine HCl (Apresoline) 10 mg SLOW IVP Q4H PRN PRN Reason: SBP>160 Sodium Chloride (Normal Saline 0.9%) 1,000 mls @ 75 mls/hr IV .[id number] [facility] Last Admin: 09/01/18 11:01 Dose: 1,000 mls Isosorbide Mononitrate (Imdur Er) 30 mg PO DAILY [facility] Last Admin: 09/01/18 13:09 Dose: 30 mg Lactulose (Lactulose) 20 gm PO TIDPRN PRN PRN Reason: Constipation Last Admin: 08/30/18 16:01 Dose: 20 gm Losartan Potassium (Cozaar) 50 mg PO DAILY [facility] Last Admin: 09/01/18 13:08 Dose: 50 mg Magnesium Citrate (Citrate Of Magnesia 300 Ml Bot) 300 ml PO NOW [facility] Stop: 09/01/18 17:00 Magnesium Hydroxide (Milk Of Magnesium) 30 ml PO Q12H PRN PRN Reason: Constipation Last Admin: 08/28/18 08:40 Dose: 30 ml Morphine Sulfate (Morphine) 2 mg SLOW IVP Q2H PRN PRN Reason: BREAKTHROUGH PAIN Naloxone HCl (Narcan) 0.2 mg IV Q5MIN PRN PRN Reason: Opiate Reversal Ondansetron HCl (Zofran) 4 mg IVP Q6H PRN PRN Reason: Nausea/Vomiting Last Admin: 08/31/18 09:22 Dose: 4 mg Pantoprazole Sodium (Protonix) 40 mg IVP DAILY [facility] Last Admin: 09/01/18 09:45 Dose: 40 mg Polyethylene Glycol (Miralax) 17 gm PO DAILY [facility] Last Admin: 09/01/18 13:11 Dose: Not Given Pregabalin (Lyrica) 75 mg PO BID [facility] Last Admin: 09/01/18 09:47 Dose: 75 mg Promethazine HCl (Phenergan) 12.5 mg PO Q4H PRN PRN Reason: Nausea/Vomiting Promethazine HCl (Phenergan Suppository) 12.5 mg SC Q4H PRN PRN Reason: Nausea/Vomiting Promethazine HCl (Phenergan) 12.5 mg IM Q4H PRN PRN Reason: Nausea/Vomiting Ranolazine (Ranexa) 500 mg PO BID [facility] Last Admin: 09/01/18 09:45 Dose: 500 mg Sodium Chloride (Flush - Normal Saline) 10 ml IVF PRN PRN PRN Reason: Saline Flush Sodium Chloride (Flush - Normal Saline) 10 ml FS DAILY [facility] Last Admin: 09/01/18 13:11 Dose: Not Given Tizanidine HCl (Zanaflex) 4 mg PO Q6H PRN PRN Reason: MUSCLE SPASM Last Admin: 09/01/18 11:00 Dose: 4 mg Tramadol HCl (Ultram) 100 mg PO Q6H PRN PRN Reason: Pain Last Admin: 08/31/18 01:03 Dose: 100 mg Zolpidem Tartrate (Ambien) 5 mg PO HSPRN PRN PRN Reason: Insomnia
[2018-09-01] MEDS ORDERED: Magnesium Citrate 300 ML BOT PO SCH (14:00)
[2018-09-01] MEDS ORDERED: Carvedilol 3.125 MG TAB PO SCH (17:00)
[2018-09-01] MEDS ORDERED: Carvedilol 6.25 MG TAB PO SCH (17:00)
--- NOTE | 2018-09-01 18:40 | CON ---
DATE OF CONSULTATION: REASON FOR CONSULT: Dysphagia. HISTORY OF PRESENT ILLNESS: Mr. Wilburn is a 58-year-old gentleman who has been here in the hospital since 08/20 when he was brought in for radicular leg pain. 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 He is still having a lot of pain, requiring pain medications and directed both narcotics and nerve pain. Yesterday, apparently, he felt like he was swallowing a pill and that maybe got stuck and he really could not swallow anymore. The nurses note they did not really give anything else to swallow yesterday. This morning, he notes that he does not have any pain in his throat. He points to his suprasternal notch where he felt the things were sticking. I have given him a glass of water and he is able to drink that today without any problems. The patient notes he has had a history of esophageal strictures which required dilatation in the past, last was about 5 years ago in [place]. He also notes previously gastrectomy in the past 10 years in [place]. Presently, he is able to handle secretions and drink liquids fine. Speech pathologist is supposed to come by and see him today. PAST SURGICAL HISTORY: Notable for back surgery in the distant past 1999, multiple coronary stent placements, carpal tunnel surgery, nephrolithiasis, history of hematoma in the right optic nerve, tonsillectomy, left ankle surgery, L3-L5 fusion in [place] in 1999, recent back surgery here, prior knee replacement, left ankle surgery. FAMILY HISTORY: Noncontributory. SOCIAL HISTORY: Smokes, occasionally drinks beers. He has 2 children. Does not have heart disease. MEDICATIONS PRIOR TO ADMISSION: 1. Aspirin. 2. Atorvastatin. 3. Isosorbide dinitrate. 4. Plavix. 5. Ranexa. 6. Omeprazole. 7. Metoprolol. 8. Amlodipine. 9. Losartan. 10. Diazepam. 11. Hydrocodone. 12. Gabapentin. ALLERGIES: HE STATES HE IS INTOLERANT TO LISINOPRIL, CRESTOR, AND CIPRO, BUT THESE ARE NOT TRUE REACTIONS. REVIEW OF SYSTEMS: He smokes and continues to do so. He has not had any weight loss. He has had no hematemesis or vomiting. He has no oral ulcers or pain. He has no melena, hematochezia, or hematemesis. Apparently, in the past he had fecal incontinence, urinary incontinence after back injury. He continues to have right leg pain. He has not had bowel movement for days. PRESENT MEDICATIONS: Here in the hospital: 1. Tylenol. 2. [place]. 3. Maalox. 4. Norvasc. 5. Lipitor. 6. Carvedilol. 7. Vitamin D. 8. Co Q10. 9. Vitamin B12. 10. Benadryl p.r.n. 11. Neurontin. 12. Imdur. 13. Lactulose p.r.n. 14. Zocor. 15. Magnesium citrate. 16. Morphine sulfate. 17. Narcan p.r.n. 18. Zofran. 19. Protonix started today. 20. MiraLAX. 21. Lyrica. 22. Phenergan. 23. Ranexa. 24. Zanaflex. 25. Ultram. 26. Ambien. PHYSICAL EXAMINATION: VITAL SIGNS: Temperature is 98.2, pulse is 51, blood pressure is 115/60. GENERAL: The patient is lying in bed. He is moaning. He states his leg hurts. He is alert and oriented to person, place, and time. HEENT: conjunctivae and sclerae are clear. Oropharynx, no lesion. NECK: Supple without adenopathy or bulges. I have given him water to drink when he is sitting up and he drinks that fine without pain, he is not regurgitated. ABDOMEN: Soft and nontender. EXTREMITIES: No clubbing, cyanosis, or edema. LABORATORY STUDIES: White count 7.7 on the 1st, hemoglobin was 10.5 on the 1st, platelet count was 166. Sodium was 133, potassium 3.8, BUN and creatinine 15 and 0.7 on 08/31. ASSESSMENT: Dysphagia was acute yesterday. This may have been related to a pill dysphagia. Now he can swallow liquids fine. RECOMMENDATIONS: 1. I would start him on a PPI. 2. I would start him on a bowel regimen. He is on narcotics and his nerve pain is moving around and has not a bowel movement for days. 3. He can start on a full liquid diet. It would be reasonable to continue the evaluation with speech pathology, but I would not recommend or embark on any endoscopy at this point in time. Job ID: [id number]
[2018-09-01] MEDS: Atorvastatin Calcium 40 MG TAB PO SCH (21:04)
[2018-09-01] MEDS: Pantoprazole 40 MG VIAL IVP SCH (21:11)
[2018-09-02] MEDS: Sodium Chloride 0.9% 1,000 ML IV SCH ×2 (06:30→13:29)
[2018-09-02 07:09] LABS: Anion Gap 11 mmol/L (10-20); BUN (Urea Nitrogen) 14 mg/dL (8.4-25.7); Calc. Creatinine Clearance 122 mL/min (70-130); Calcium 8.5 mg/dL (7.8-10.44); Carbon Dioxide 23 mmol/L (22-29); Chloride 103 mmol/L (98-107); Estimated GFR-MDRD Greater than 90; Glucose 195 mg/dL (70-105); Potassium 4.2 mmol/L (3.5-5.1); Sodium 133 mmol/L (136-145)
[2018-09-02] MEDS: Amlodipine 5 MG TAB PO SCH (09:03)
[2018-09-02] MEDS: Gabapentin 300 MG CAP PO SCH ×3 (09:05→21:34)
[2018-09-02] MEDS: Carvedilol 3.125 MG TAB PO SCH ×2 (09:05→16:52)
[2018-09-02] MEDS: Losartan 25 MG TAB PO SCH (09:05)
[2018-09-02] MEDS: Pantoprazole 40 MG VIAL IVP SCH (09:05)
[2018-09-02] MEDS: Ubidecarenone 50 MG CAP PO SCH (09:05)
[2018-09-02] MEDS: Pregabalin 75 MG CAP PO SCH ×2 (09:06→21:34)
[2018-09-02] MEDS: Polyethylene Glycol 3350 17 GM Packet PO SCH (09:07)
[2018-09-02] MEDS: Cyanocobalamin (Vitamin B-12) 1,000 MCG TAB PO SCH (09:07)
[2018-09-02] MEDS: HYDROcodone/Acetaminophen 10/325 mg Tablet PO PRN ×2 (09:27→18:43)
[2018-09-02] MEDS: tiZANidine HCl 4 MG TAB PO PRN ×2 (11:21→21:35)
--- NOTE | 2018-09-02 14:38 | PRG ---
DATE OF SERVICE: 09/02/2018 SUBJECTIVE: Mr. Wilburn dysphagia is much better today. He is not having epigastric pain any longer either. Pill is not getting stuck. He does relate that he has had intermittent problems with dysphagia in the past and had to be dilated in the past in [place] for strictures in the esophagus. OBJECTIVE: VITAL SIGNS: Temperature is 98, pulse 65, blood pressure 110/66. ABDOMEN: Nontender. CHEST: Nontender. ASSESSMENT: 1. Dysphagia. Yesterday or day before he may have had some pill or something get stuck, but that was able to pass nice, swallowing fine. I did place him on Protonix for possible reflux, had been relying on clamp position for some time. 2. Constipation related to narcotic pain medicine, back surgery, and being in bed. I have recommend to get out of bed and walk around. He has some laxatives and start having bowel movements today. 3. At this time, from GI standpoint, we will sign off. If he has intermittent problems of dysphagia in the future, he is to see me in office for outpatient evaluation. If there is any more acute development, please do not hesitate to contact me. I think, if this cannot be minimized, keep on PPI, and have him eat while sitting up instead of lying down. Job ID: [id number]
--- NOTE | 2018-09-02 15:44 | PDOC.PN ---
- Subjective Encounter Start Date: 09/02/18 Encounter Start Time: 11:00 Pt seen for followup re: hypertension. No complaints today. - Objective Resuscitation Status - Order Detail: 08/21/18 15:50 Resuscitation Status Routine Resuscitation Status: DNAR: NO Resuscitation Discussed with: Patient SHERRI Reviewed: Yes Vital Signs & Weight: Vital Signs (12 hours) Temp Pulse Resp BP BP Pulse Ox 09/02/18 12:00 98.0 F 65 12 110/66 97 09/02/18 07:45 98.1 F 62 18 137/79 94 L 09/02/18 04:00 98.6 F 55 L 18 126/72 97 Weight Admit Weight 189 lb 3.2 oz Weight 189 lb 3 oz I&O: 09/01/18 09/02/18 09/03/18 06:59 06:59 06:59 Intake Total 1320 Balance 1320 Result Diagrams: 08/30/18 11:05 09/02/18 06:06 Additional Labs: Labs reviewed by me Phys Exam - Physical Examination Constitutional: NAD HEENT: moist MMs Neck: supple Respiratory: clear to auscultation bilateral Cardiovascular: RRR Gastrointestinal: soft Neurological: moves all 4 limbs Psychiatric: normal affect Dx/Plan (1) Hypertension Code(s): I10 - ESSENTIAL (PRIMARY) HYPERTENSION Status: Chronic Comment: controlled (2) CAD (coronary artery disease) Code(s): I25.10 - ATHSCL HEART DISEASE OF [place] CORONARY ARTERY W/O ANG PCTRS Status: Chronic Qualifiers: Coronary Disease-Associated Artery/Lesion type: [place] artery Comment: only medical management.ASA & Plavix on hold per primary team. On statin,BB,ARB,Ranexa,Imdur (3) Hyperlipidemia Code(s): E78.5 - HYPERLIPIDEMIA, UNSPECIFIED Status: Chronic Comment: continue Lipitor - Plan * . Review of Systems - Review of Systems Cardiovascular: negative: chest pain, palpitations, orthopnea, paroxysmal nocturnal dyspnea, edema, light headedness Gastrointestinal: negative: Nausea, Vomiting, Abdominal Pain, Diarrhea, Constipation, Melena, Hematochezia - Medications/Allergies Allergies/Adverse Reactions: Allergies Allergy/AdvReac Type Severity Reaction Status Date / Time azithromycin Allergy Verified 08/20/18 18:02 [From Zithromax Z-Sb] ciprofloxacin [From Cipro] Allergy Verified 08/20/18 18:02 lisinopril Allergy Verified 08/20/18 18:02 rosuvastatin [From Crestor] Allergy Verified 08/20/18 18:02 Medications: Current Medications Acetaminophen (Tylenol) 650 mg PO Q4H PRN PRN Reason: Headache Last Admin: 08/31/18 18:04 Dose: 650 mg Hydrocodone Bitart/Acetaminophen ([place] 10/325) 1 tab PO Q4H PRN PRN Reason: Moderate Pain (2-4) Last Admin: 08/29/18 18:25 Dose: 1 tab Hydrocodone Bitart/Acetaminophen ([place] 10/325) 2 tab PO Q4H PRN PRN Reason: Moderate to Severe Pain (5-10) Last Admin: 09/02/18 09:27 Dose: 2 tab Al Hydroxide/Mg Hydroxide (Maalox) 30 ml PO Q4H PRN PRN Reason: Heartburn or Indigestion Last Admin: 08/30/18 20:56 Dose: 30 ml Amlodipine Besylate (Norvasc) 5 mg PO DAILY [facility] Last Admin: 09/02/18 09:03 Dose: 5 mg Atorvastatin Calcium (Lipitor) 40 mg PO HS [facility] Last Admin: 09/01/18 21:04 Dose: 40 mg Carvedilol (Coreg) 1.5625 mg PO BID-[facility] Last Admin: 09/02/18 09:05 Dose: 1.5625 mg Cholecalciferol (Vitamin D3) 1,000 units PO DAILY [facility] Last Admin: 09/02/18 09:07 Dose: 1,000 units Coenzyme Q10 (Coenzyme Q10) 100 mg PO DAILY [facility] Last Admin: 09/02/18 09:05 Dose: 100 mg Cyanocobalamin (Vitamin B-12) 1,000 mcg PO DAILY [facility] Last Admin: 09/02/18 09:07 Dose: 1,000 mcg Diphenhydramine HCl (Benadryl) 25 mg IVP Q3H PRN PRN Reason: Itching Last Admin: 08/26/18 23:08 Dose: 25 mg Diphenhydramine HCl (Benadryl) 25 mg PO Q3H PRN PRN Reason: Itching Diphenhydramine HCl (Benadryl) 25 mg IM Q3H PRN PRN Reason: Itching Gabapentin (Neurontin) 600 mg PO TID [facility] Last Admin: 09/02/18 09:05 Dose: 600 mg Hydralazine HCl (Apresoline) 10 mg SLOW IVP Q4H PRN PRN Reason: SBP>160 Sodium Chloride (Normal Saline 0.9%) 1,000 mls @ 75 mls/hr IV .[id number] [facility] Last Admin: 09/02/18 13:29 Dose: Not Given Isosorbide Mononitrate (Imdur Er) 30 mg PO DAILY [facility] Last Admin: 09/02/18 09:05 Dose: 30 mg Lactulose (Lactulose) 20 gm PO TIDPRN PRN PRN Reason: Constipation Last Admin: 08/30/18 16:01 Dose: 20 gm Losartan Potassium (Cozaar) 50 mg PO DAILY [facility] Last Admin: 09/02/18 09:05 Dose: 50 mg Magnesium Hydroxide (Milk Of Magnesium) 30 ml PO Q12H PRN PRN Reason: Constipation Last Admin: 08/28/18 08:40 Dose: 30 ml Morphine Sulfate (Morphine) 2 mg SLOW IVP Q2H PRN PRN Reason: BREAKTHROUGH PAIN Naloxone HCl (Narcan) 0.2 mg IV Q5MIN PRN PRN Reason: Opiate Reversal Ondansetron HCl (Zofran) 4 mg IVP Q6H PRN PRN Reason: Nausea/Vomiting Last Admin: 08/31/18 09:22 Dose: 4 mg Pantoprazole Sodium (Protonix) 40 mg IVP Q12HR [facility] Last Admin: 09/02/18 09:05 Dose: 40 mg Polyethylene Glycol (Miralax) 17 gm PO DAILY [facility] Last Admin: 09/02/18 09:07 Dose: Not Given Pregabalin (Lyrica) 75 mg PO BID [facility] Last Admin: 09/02/18 09:06 Dose: 75 mg Promethazine HCl (Phenergan) 12.5 mg PO Q4H PRN PRN Reason: Nausea/Vomiting Promethazine HCl (Phenergan Suppository) 12.[address] Q4H PRN PRN Reason: Nausea/Vomiting Promethazine HCl (Phenergan) 12.5 mg IM Q4H PRN PRN Reason: Nausea/Vomiting Ranolazine (Ranexa) 500 mg PO BID [facility] Last Admin: 09/02/18 09:04 Dose: 500 mg Sodium Chloride (Flush - Normal Saline) 10 ml IVF PRN PRN PRN Reason: Saline Flush Sodium Chloride (Flush - Normal Saline) 10 ml FS DAILY [facility] Last Admin: 09/02/18 09:08 Dose: 10 ml Tizanidine HCl (Zanaflex) 4 mg PO Q6H PRN PRN Reason: MUSCLE SPASM Last Admin: 09/02/18 11:21 Dose: 4 mg Tramadol HCl (Ultram) 100 mg PO Q6H PRN PRN Reason: Pain Last Admin: 08/31/18 01:03 Dose: 100 mg Zolpidem Tartrate (Ambien) 5 mg PO HSPRN PRN PRN Reason: Insomnia
[2018-09-02] MEDS: Atorvastatin Calcium 40 MG TAB PO SCH (21:34)
[2018-09-03] MEDS: HYDROcodone/Acetaminophen 10/325 mg Tablet PO PRN ×3 (08:08→16:50)
[2018-09-03] MEDS: Ubidecarenone 50 MG CAP PO SCH (08:09)
[2018-09-03] MEDS: Pregabalin 75 MG CAP PO SCH (08:09)
[2018-09-03] MEDS: Amlodipine 5 MG TAB PO SCH (08:10)
[2018-09-03] MEDS: Gabapentin 300 MG CAP PO SCH ×2 (08:10→14:51)
[2018-09-03] MEDS: Losartan 25 MG TAB PO SCH (08:10)
[2018-09-03] MEDS: Cyanocobalamin (Vitamin B-12) 1,000 MCG TAB PO SCH (08:10)
[2018-09-03] MEDS: Carvedilol 3.125 MG TAB PO SCH ×2 (08:10→16:51)
[2018-09-03] MEDS: Polyethylene Glycol 3350 17 GM Packet PO SCH (08:11)
--- NOTE | 2018-09-03 08:52 | PRG ---
DATE OF SERVICE: 09/03/2018 Mr. Wilburn this morning is still in a profound amount of pain diffusely, mostly in the left lower extremity, which he is describing radicular symptoms there. He does have some in the right lower extremity, however, much severe. He also complains of some headache. He unfortunately was denied rehab yesterday by his insurance. I will need to call this morning to see if we can get this approved discussion. If that is further denied, we will look into potentially a snf facility instead, although, our preference is obviously rehab for the purposes of acute recovery. I will also look into developing a better pain control regimen for him to see if we can improve at least some of his symptoms while in the hospital. Job ID: [id number]
[2018-09-03] MEDS ORDERED: Ondansetron ODT 4 MG TAB PO PRN (11:17)
--- NOTE | 2018-09-03 14:07 | PDOC.PN ---
- Subjective Encounter Start Date: 09/03/18 Encounter Start Time: 08:40 Pt seen for followup re: hypertension. No complaints today. - Objective Resuscitation Status - Order Detail: 08/21/18 15:50 Resuscitation Status Routine Resuscitation Status: DNAR: NO Resuscitation Discussed with: Patient Vital Signs & Weight: Vital Signs (12 hours) Temp Pulse Resp BP BP BP Pulse Ox 09/03/18 11:52 98.1 F 52 L 16 106/64 94 L 09/03/18 09:24 96 09/03/18 08:10 57 L 140/68 09/03/18 07:50 99.1 F 57 L 16 140/68 96 09/03/18 04:00 98.7 F 60 16 123/74 96 Weight Admit Weight 189 lb 3.2 oz Weight 189 lb 3 oz I&O: 09/02/18 09/03/18 09/04/18 06:59 06:59 06:59 Intake Total 1320 Balance 1320 Result Diagrams: 08/30/18 11:05 09/02/18 06:06 Phys Exam - Physical Examination Constitutional: NAD HEENT: moist MMs Neck: supple Respiratory: clear to auscultation bilateral Cardiovascular: RRR Gastrointestinal: soft Neurological: moves all 4 limbs Psychiatric: normal affect Dx/Plan (1) Hypertension Code(s): I10 - ESSENTIAL (PRIMARY) HYPERTENSION Status: Chronic Comment: controlled, continue Coreg, Cozaar and isosorbidemononitrate. (2) CAD (coronary artery disease) Code(s): I25.10 - ATHSCL HEART DISEASE OF [place] CORONARY ARTERY W/O ANG PCTRS Status: Chronic Qualifiers: Coronary Disease-Associated Artery/Lesion type: [place] artery Comment: ASA & Plavix on hold per primary team. Continue statin, BB, ARB, Ranexa and Imdur. (3) Hyperlipidemia Code(s): E78.5 - HYPERLIPIDEMIA, UNSPECIFIED Status: Chronic Comment: on Lipitor - Plan * . Review of Systems - Review of Systems Constitutional: negative: fever, chills, sweats, weakness, malaise Gastrointestinal: negative: Nausea, Vomiting, Abdominal Pain, Diarrhea, Constipation, Melena, Hematochezia - Medications/Allergies Allergies/Adverse Reactions: Allergies Allergy/AdvReac Type Severity Reaction Status Date / Time azithromycin Allergy Verified 08/20/18 18:02 [From Zithromax Z-Sb] ciprofloxacin [From Cipro] Allergy Verified 08/20/18 18:02 lisinopril Allergy Verified 08/20/18 18:02 rosuvastatin [From Crestor] Allergy Verified 08/20/18 18:02 Medications: Current Medications Acetaminophen (Tylenol) 650 mg PO Q4H PRN PRN Reason: Headache Last Admin: 08/31/18 18:04 Dose: 650 mg Hydrocodone Bitart/Acetaminophen ([place] 10/325) 1 tab PO Q4H PRN PRN Reason: Moderate Pain (2-4) Last Admin: 08/29/18 18:25 Dose: 1 tab Hydrocodone Bitart/Acetaminophen ([place] 10/325) 2 tab PO Q4H PRN PRN Reason: Moderate to Severe Pain (5-10) Last Admin: 09/03/18 12:48 Dose: 2 tab Al Hydroxide/Mg Hydroxide (Maalox) 30 ml PO Q4H PRN PRN Reason: Heartburn or Indigestion Last Admin: 08/30/18 20:56 Dose: 30 ml Amlodipine Besylate (Norvasc) 5 mg PO DAILY [facility] Last Admin: 09/03/18 08:10 Dose: 5 mg Atorvastatin Calcium (Lipitor) 40 mg PO [facility] Last Admin: 09/02/18 21:34 Dose: 40 mg Carvedilol (Coreg) 1.5625 mg PO BID-[facility] Last Admin: 09/03/18 08:10 Dose: 1.5625 mg Cholecalciferol (Vitamin D3) 1,000 units PO DAILY [facility] Last Admin: 09/03/18 08:10 Dose: 1,000 units Coenzyme Q10 (Coenzyme Q10) 100 mg PO DAILY [facility] Last Admin: 09/03/18 08:09 Dose: 100 mg Cyanocobalamin (Vitamin B-12) 1,000 mcg PO DAILY [facility] Last Admin: 09/03/18 08:10 Dose: 1,000 mcg Diphenhydramine HCl (Benadryl) 25 mg IVP Q3H PRN PRN Reason: Itching Last Admin: 08/26/18 23:08 Dose: 25 mg Diphenhydramine HCl (Benadryl) 25 mg PO Q3H PRN PRN Reason: Itching Diphenhydramine HCl (Benadryl) 25 mg IM Q3H PRN PRN Reason: Itching Gabapentin (Neurontin) 600 mg PO TID [facility] Last Admin: 09/03/18 08:10 Dose: 600 mg Hydralazine HCl (Apresoline) 10 mg SLOW IVP Q4H PRN PRN Reason: SBP>160 Isosorbide Mononitrate (Imdur Er) 30 mg PO DAILY [facility] Last Admin: 09/03/18 08:11 Dose: 30 mg Lactulose (Lactulose) 20 gm PO TIDPRN PRN PRN Reason: Constipation Last Admin: 08/30/18 16:01 Dose: 20 gm Losartan Potassium (Cozaar) 50 mg PO DAILY [facility] Last Admin: 09/03/18 08:10 Dose: 50 mg Magnesium Hydroxide (Milk Of Magnesium) 30 ml PO Q12H PRN PRN Reason: Constipation Last Admin: 08/28/18 08:40 Dose: 30 ml Morphine Sulfate (Morphine) 2 mg SLOW IVP Q2H PRN PRN Reason: BREAKTHROUGH PAIN Naloxone HCl (Narcan) 0.2 mg IV Q5MIN PRN PRN Reason: Opiate Reversal Ondansetron HCl (Zofran) 4 mg IVP Q6H PRN PRN Reason: Nausea/Vomiting Last Admin: 08/31/18 09:22 Dose: 4 mg Ondansetron HCl (Zofran Odt) 4 mg PO Q6H PRN PRN Reason: Nausea/Vomiting Last Admin: 09/03/18 11:25 Dose: 4 mg Polyethylene Glycol (Miralax) 17 gm PO DAILY [facility] Last Admin: 09/03/18 08:11 Dose: Not Given Pregabalin (Lyrica) 75 mg PO BID [facility] Last Admin: 09/03/18 08:09 Dose: 75 mg Promethazine HCl (Phenergan) 12.5 mg PO Q4H PRN PRN Reason: Nausea/Vomiting Promethazine HCl (Phenergan Suppository) 12.5 mg SD Q4H PRN PRN Reason: Nausea/Vomiting Promethazine HCl (Phenergan) 12.5 mg IM Q4H PRN PRN Reason: Nausea/Vomiting Ranolazine (Ranexa) 500 mg PO BID [facility] Last Admin: 09/03/18 08:09 Dose: 500 mg Sodium Chloride (Flush - Normal Saline) 10 ml IVF PRN PRN PRN Reason: Saline Flush Tizanidine HCl (Zanaflex) 4 mg PO Q6H PRN PRN Reason: MUSCLE SPASM Last Admin: 09/02/18 21:35 Dose: 4 mg Tramadol HCl (Ultram) 100 mg PO Q6H PRN PRN Reason: Pain Last Admin: 08/31/18 01:03 Dose: 100 mg Zolpidem Tartrate (Ambien) 5 mg PO HSPRN PRN PRN Reason: Insomnia
[2018-09-03 19:32] VITALS: BP 137/70; TEMP 98.3
== END 2018-09-03 20:06 | DRG 460 ==
LOC: SURG A 17:33
PROVIDERS: ADMIT Neurological Surgery; ATTEND Neurological Surgery
PROC: 0SG00K1 Fusion of Lumbar Vertebral Joint with Nonautologous Tissue Substitute, Posterior Approach, Posterior Column, Open Approach (ICD-10-PCS; principal; 2018-08-26)
PROC: 0SG00K1 Fusion of Lumbar Vertebral Joint with Nonautologous Tissue Substitute, Posterior Approach, Posterior Column, Open Approach (ICD-10-PCS; 2018-08-26)
PROC: 3E0U0GB Introduction of Recombinant Bone Morphogenetic Protein into Joints, Open Approach (ICD-10-PCS; 2018-08-26)
PROC: 00U20KZ Supplement Dura Mater with Nonautologous Tissue Substitute, Open Approach (ICD-10-PCS; 2018-08-26)
DX: M51.16 Intervertebral disc disorders with radiculopathy, lumbar region (principal); R44.3 Hallucinations, unspecified; G96.0 Cerebrospinal fluid leak; T40.4X5A Adverse effect of other synthetic narcotics, initial encounter; I25.10 Atherosclerotic heart disease of native coronary artery without angina pectoris; I10 Essential (primary) hypertension; R13.10 Dysphagia, unspecified; N31.9 Neuromuscular dysfunction of bladder, unspecified; K59.8 Other specified functional intestinal disorders; E78.5 Hyperlipidemia, unspecified; K59.03 Drug induced constipation; R00.1 Bradycardia, unspecified; F17.210 Nicotine dependence, cigarettes, uncomplicated; Z98.1 Arthrodesis status; Z98.84 Bariatric surgery status; Z66 Do not resuscitate; Z79.02 Long term (current) use of antithrombotics/antiplatelets; Z79.82 Long term (current) use of aspirin; Z87.442 Personal history of urinary calculi; Z95.5 Presence of coronary angioplasty implant and graft; Z88.1 Allergy status to other antibiotic agents; Z88.8 Allergy status to other drugs, medicaments and biological substances
CPT/HCPCS: 36415; 62305; 71045; 72129; 72132; 76000; 77002; 80048; 85014; 85018; 85025; 85610; 85730; 90715; 93005; 93010; 93925; 93970; C9113; J0131; J1100; J1200; J1650; J1885; J2001; J2250; J2405; J2704; J3010; J3370; J3490; J7050; J8540; Q0162; Q9967

== ENCOUNTER 2018-09-04 19:54 | Inpatient (IN) | payer MEDICARE ==
[2018-09-04] MEDS ORDERED: Acetaminophen 650 MG Suppository PR PRN (20:25)
[2018-09-04] MEDS ORDERED: Acetaminophen 325 MG TAB PO PRN (20:25)
[2018-09-04] MEDS ORDERED: Ondansetron ODT 4 MG TAB PO PRN (20:25)
[2018-09-04] MEDS ORDERED: Ondansetron PF 4 MG/2 ML Vial IVP PRN (20:25)
[2018-09-04] MEDS ORDERED: HYDROcodone/Acetaminophen 10/325 mg Tablet PO PRN (20:25)
--- NOTE | 2018-09-04 21:18 | PDOC.EVN ---
Event Note - Event Note Event Note: H&P doc # [id number]
[2018-09-04] MEDS ORDERED: Nitroglycerin 0.4 MG TAB (25 Tab Bottle) SL PRN (21:54)
[2018-09-04] MEDS ORDERED: Pregabalin 75 MG CAP PO SCH (22:15)
[2018-09-04] MEDS: Sodium Chloride 0.9% 1,000 ML IV SCH (22:17)
--- NOTE | 2018-09-04 22:40 | HP ---
PRIMARY CARE PHYSICIAN: At [facility]. CHIEF COMPLAINT: Spinal fluid leak, sent from the rehab. HISTORY OF PRESENT ILLNESS: This is a 58-year-old male with past medical history of hypertension, coronary artery disease, hyperlipidemia, who presents as a direct admission from the rehab for spinal fluid leak concern. The patient was discharged recently from the hospital after extended course of admission with Neurosurgery. The patient was seen by Dr. Andino, who is the spinal surgeon, who performed the spinal decompression. The patient reports that he was having a lot of headaches and he felt that he was not ready for discharge. The patient was upset about coming to the hospital and saying that he should have never come to the hospital. He was supposed to receive blood patch for his spinal fluid leak but they never did anything for it. The patient reports that this morning when he went to the rehab, they checked his back and saw that it was leaking. They wanted him to come to the ER for admission. The patient reports that along with [place], the patient was started on Lyrica 75 mg b.i.d., which he felt that makes his pain a lot better. The patient felt that since he has not gotten the medication, he has had a lot of pain. The patient is refusing to let us examine the back. PAST MEDICAL HISTORY: Coronary artery disease, hypertension, hyperlipidemia, nephrolithiasis. PAST SURGICAL HISTORY: Coronary artery stents, 11; bilateral total knee replacements; bariatric gastric sleeve; surgical kidney stone; ankle surgery. SOCIAL HISTORY: The patient last smoked about 3 weeks ago. The patient is not . Drinks a couple of beers one to two times per week, but has not drank since he has been admitted. FAMILY HISTORY: Dad of colon cancer. ALLERGIES: LISINOPRIL, CIPROFLOXACIN, CRESTOR, AZITHROMYCIN. CURRENT MEDICATIONS: Tylenol No. 3 two tablets q.6 p.r.n., amlodipine 5 mg daily, aspirin 81 mg daily, atorvastatin 40 mg daily, vitamin D3 1000 units daily, Plavix 75 mg daily, vitamin B12 1000 mcg daily, diazepam 5 mg p.o. t.i.d., Lyrica 75 mg b.i.d., [place] 10/325 one tablet q.6 p.r.n., isosorbide mononitrate 30 mg daily, losartan 25 mg daily, metoprolol 25 mg daily, nitroglycerin 0.3 mg sublingual q.5 minutes p.r.n. for maximum of three dosages, omeprazole 20 mg daily, Ranexa 500 mg b.i.d., coenzyme Q10 100 mg daily. REVIEW OF SYSTEMS: CONSTITUTIONAL: No fever. No chills. EYES: No vision loss or blurry vision. HEENT: Headaches. PULMONARY: No cough, wheezing, or shortness of breath. CARDIOVASCULAR: Denies any chest pain or palpitation. ABDOMEN: No abdominal pain, nausea, or vomiting. : No dysuria. MUSCULOSKELETAL: No pain except for back pain as mentioned in the HPI. NEUROLOGIC: Denies any deficit at this point. PHYSICAL EXAMINATION: VITAL SIGNS: Vitals are within normal limits. GENERAL: Well developed, well nourished, seemed to be having significant headache. HEENT: Pupils are equal, round, and reflected to light. No lesion or erythema noted. NECK: Supple. No lymphedema. HEART: Regular rate and rhythm. No murmur, rubs, or gallops. LUNGS: Clear bilaterally. No wheezing. ABDOMEN: Soft. Bowel sounds positive. Nontender. EXTREMITIES: No deformities noted on the leg or edema. BACK: The patient refused back examination because of severe pain. SKIN: No rashes noted. LABORATORY DATA: Labs reviewed from the transfer ER and significantly include sodium of 131, otherwise lab values within normal limits. ASSESSMENT AND PLAN: 1. Spinal fluid leak. Neurosurgery consulted. The case was discussed with the on-call neurosurgeon, Dr. Andino, to see the patient in the morning. He was advised to lay flat for 48 hours. IV fluid and pain control. May need blood patch. Cont Lyrica 75 mg BID 2. Coronary artery disease. Continue home medications. 3. Hypertension. Continue home medications. 4. Hyperlipidemia. Continue statin. 5. Hyponatremia, mild. IVF, repeat labs in the morning. 6. Gastrointestinal prophylaxis. Continue home PPI. 7. Deep venous thrombosis prophylaxis. SCDs. 8. Code status. The patient reports that he is do not resuscitate. Paperwork was signed. The patient reports that his medical power of civil rights attorney is his daughter, whose name is Kourtney Angel, phone number [phone]. Job ID: [id number] [facility]
[2018-09-05 01:14] VITALS: BMI 27.1
--- NOTE | 2018-09-05 01:19 | CON ---
DATE OF CONSULTATION: 09/04/2018 This is a 30-minute initial patient evaluation, of which greater than 50% of the exam was spent counseling, coordinating the patient's care. Remainder of the exam was spent in review of the patient's medical records and formulation of treatment plan. CHIEF COMPLAINT: Postural headache with recent lumbar spine surgery and CSF leak repair. HISTORY OF PRESENT ILLNESS: Mr. Wilburn is a 58-year-old male who is transferred back to [facility] for inpatient rehab with complaints of postural headache. The patient states it has been going on for the past 2 to 3 days and is worse with sitting or standing. This is significantly limited his activity postoperatively. The patient has a history of undergoing lumbar surgery with Dr. Andino including exploration of spinal fusion at L3 through L5 with attempted removal of hardware at L3-L5 with L2-L3 laminectomy and in situ fusion on 08/26/2018. There was a CSF leak during the surgery and was repaired intraoperatively. Again, the patient states that his postural headaches have been present over the past 2 to 3 days. He also complains of continued back and bilateral lower leg pain, worse posteriorly and worse on the left than the right. He states the symptoms have remained virtually unchanged compared to his preoperative pain. He states the only thing that improves his pain is Lyrica. PHYSICAL EXAMINATION: The patient is awake, alert, and appropriate. He has full strength in bilateral upper extremities, but secondary to pain and motivation, refuses to move the legs. He is, however, able to bend his knee and slightly lift the right leg off the bed. He has good strength in bilateral dorsiflexion and plantar flexion. He will attempt to slightly move the left upper extremity, but secondary to pain, does not even lift it off the bed. Apparently, he was transported via stretcher back to the hospital. By report, his incision has been clean, dry, and intact. The patient refuses to turn so that I can inspect the incision at this time. IMPRESSION/DIAGNOSIS: Postural headache, status post lumbar fusion exploration and L2-L3 laminectomy with Dr. Andino on 08/26/2018 with CSF leak repair. PLAN: At this time, our medical colleagues have graciously admitted the patient and we will continue to monitor his neurologic status, but otherwise the patient should remain flat over the next ideally 48 hours. He may roll to his side to eat. His believes that he is having some postural headache related to CSF leak, and this will improve with bedrest and lying flat. Continue Lyrica as prescribed as this is helpful to the patient. Hopefully, we will be able to look at his wound in the next day or 2 to ensure that there is no drainage, but again by report from the patient and nursing staff, there has been no drainage from the incision. Again, we will continue to monitor the patient and appreciate medical colleagues working on pain control. Please call with any changes in the patient's neurologic status. We will also update Dr. Andino when he is available. Job ID: [id number]
[2018-09-05] MEDS: HYDROcodone/Acetaminophen 10/325 mg Tablet PO PRN ×4 (03:09→17:57)
[2018-09-05] MEDS ORDERED: Nitroglycerin 0.4 MG TAB (25 Tab Bottle) SL PRN (04:45)
[2018-09-05 08:10] LABS: #Basophils 0.1 thou/uL (0.0-0.2); #Eosinphils 0.5 thou/uL (0.0-0.7); #Lymphocytes 1.3 thou/uL (1.20-3.40); #Monocytes 0.7 thou/uL (0.11-0.59); #Neutrophils 4.4 thou/uL (1.40-6.50); %Eosinophils 6.7 % (0.0-10.0); %Lymphocytes 19.1 % (21.0-51.0); %Monocytes 10.4 % (0.0-10.0); %Neutrophils 62.8 % (42.0-75.0); Hemoglobin 12.4 g/dL (14.0-18.0); Mean Corpuscular HGB CONC 32.9 g/dL (32.0-36.0); Mean Corpuscular Hemoglobin 30.3 pg (27.0-31.0); Mean Corpuscular Volume 92.1 fL (78.0-98.0); Mean Platelet Volume 6.9 fL (7.4-10.4); Platelet Count 244 thou/uL (130-400); RBC Distribution Width 12.6 % (11.5-14.5); Red Blood Cell (RBC) Count 4.08 mill/uL (4.70-6.10)
[2018-09-05 08:36] LABS: Anion Gap 11 mmol/L (10-20); BUN (Urea Nitrogen) 13 mg/dL (8.4-25.7); Calc. Creatinine Clearance 124 mL/min (70-130); Calcium 9.1 mg/dL (7.8-10.44); Carbon Dioxide 25 mmol/L (22-29); Chloride 99 mmol/L (98-107); Estimated GFR-MDRD Greater than 90; Glucose 138 mg/dL (70-105); Potassium 4.1 mmol/L (3.5-5.1); Sodium 131 mmol/L (136-145)
[2018-09-05] MEDS: Losartan 25 MG TAB PO SCH (09:02)
[2018-09-05] MEDS: Clopidogrel Bisulfate 75 MG TAB PO SCH (09:03)
[2018-09-05] MEDS: Ubidecarenone 50 MG CAP PO SCH (09:04)
[2018-09-05] MEDS: Amlodipine 5 MG TAB PO SCH (09:05)
[2018-09-05] MEDS: Atorvastatin Calcium 40 MG TAB PO SCH (09:05)
[2018-09-05] MEDS: Aspirin Chewable 81 MG TAB PO SCH (09:05)
[2018-09-05] MEDS: Pregabalin 75 MG CAP PO SCH ×2 (09:06→20:10)
[2018-09-05] MEDS: Diazepam 5 MG TAB PO SCH ×3 (09:07→20:14)
--- NOTE | 2018-09-05 10:34 | PRG ---
DATE OF SERVICE: 09/05/2018 Mr. Wilburn is a 58-year-old man who on August 26, he was taken to the operating room by my colleague, Dr. Andino for extension of spinal fusion in the mid lumbar spine decompression. There was CSF leak. This was sealed. The patient was eventually transferred to inpatient rehab, however, he has had difficulty with headache at this point. He has been initiated on aspirin and Plavix in review of his medications while he is neurologically at his baseline. He endorses low back and leg pain and headache. This appears to be postural. His wound is dry by report, although when our team attempted to look at it, the patient did not want to roll over. Nevertheless, what I would like to do is a head CT given his dual antiplatelet therapy and keep him flat at this point. We will see how he is doing following his head CT. I should note, he is hyponatremic and I have asked that our medical colleagues to assist in this regard. Job ID: [id number]
[2018-09-05] MEDS: Morphine 4 MG/ML VIAL SLOW IVP PRN ×3 (11:27→20:23)
--- NOTE | 2018-09-05 12:19 | CT ---
NONCONTRAST HEAD CT: History: Postural headache. Comparison: None. FINDINGS: There is post-surgical change in the right frontal calvarium. Adequate aeration of the sinuses and ma stoid air cells. No parenchymal hemorrhage. No extraaxial hematoma. No midline shift. Basilar cisterns are patent. Bra in volume age appropriate. Cortical [place] white matter differentiation preserved. No evidence of hydrocephalus. IMPRESSION: No acute intracranial process. POS: H
--- NOTE | 2018-09-05 12:43 | PDOC.PN ---
- Subjective Encounter Start Date: 09/05/18 Encounter Start Time: 08:20 Pt seen for followup re: headache. Still has headache. - Objective MAR Reviewed: Yes Vital Signs & Weight: Vital Signs (12 hours) Temp Pulse Resp BP BP Pulse Ox 09/05/18 12:00 98.1 F 74 20 112/65 96 09/05/18 09:05 58 L 136/73 09/05/18 08:00 98.6 F 58 L 18 136/73 98 09/05/18 03:56 98.3 F 62 19 122/74 96 Weight Weight 189 lb 2.506 oz Result Diagrams: 09/05/18 07:35 09/05/18 07:35 Additional Labs: Labs reviewed by me Phys Exam - Physical Examination Constitutional: NAD HEENT: moist MMs Neck: supple Respiratory: clear to auscultation bilateral Cardiovascular: RRR Gastrointestinal: soft Neurological: moves all 4 limbs Psychiatric: normal affect Skin: no rash Dx/Plan (1) Headache Code(s): R51 - HEADACHE Status: Acute Comment: Likely secondary to CSF leak. (2) CAD (coronary artery disease) Code(s): I25.10 - ATHSCL HEART DISEASE OF [place] CORONARY ARTERY W/O ANG PCTRS Status: Chronic Qualifiers: Coronary Disease-Associated Artery/Lesion type: [place] artery Comment: stable (3) Hyperlipidemia Code(s): E78.5 - HYPERLIPIDEMIA, UNSPECIFIED Status: Chronic Comment: on Lipitor (4) Hypertension Code(s): I10 - ESSENTIAL (PRIMARY) HYPERTENSION Status: Chronic Comment: controlled - Plan * . Review of Systems - Review of Systems Cardiovascular: negative: chest pain, palpitations, orthopnea, paroxysmal nocturnal dyspnea, edema, light headedness Gastrointestinal: negative: Nausea, Vomiting, Abdominal Pain, Diarrhea, Constipation, Melena, Hematochezia Neurological: Other (headache) - Medications/Allergies Allergies/Adverse Reactions: Allergies Allergy/AdvReac Type Severity Reaction Status Date / Time azithromycin Allergy Verified 08/20/18 18:02 [From Zithromax Z-Sb] ciprofloxacin [From Cipro] Allergy Verified 08/20/18 18:02 lisinopril Allergy Verified 08/20/18 18:02 rosuvastatin [From Crestor] Allergy Verified 08/20/18 18:02 Medications: Current Medications Acetaminophen (Tylenol) 650 mg PO Q4H PRN PRN Reason: Headache/Fever/Mild Pain (1-3) Acetaminophen (Tylenol) 650 mg MS Q4H PRN PRN Reason: Headache/Fever/Mild Pain (1-3) Hydrocodone Bitart/Acetaminophen ([place]utz 10/325) 1 tab PO Q4H PRN PRN Reason: Moderate Pain (4-6) Hydrocodone Bitart/Acetaminophen ([place] 10/325) 2 tab PO Q4H PRN PRN Reason: Severe Pain (7-10) Last Admin: 09/05/18 07:08 Dose: 2 tab Amlodipine Besylate (Norvasc) 5 mg PO DAILY [facility] Last Admin: 09/05/18 09:05 Dose: 5 mg Aspirin (Aspirin Chewable) 81 mg PO DAILY [facility] Last Admin: 09/05/18 09:05 Dose: 81 mg Atorvastatin Calcium (Lipitor) 40 mg PO DAILY [facility] Last Admin: 09/05/18 09:05 Dose: 40 mg Cholecalciferol (Vitamin D3) 1,000 units PO DAILY [facility] Last Admin: 09/05/18 09:05 Dose: 1,000 units Clopidogrel Bisulfate (Plavix) 75 mg PO DAILY [facility] Last Admin: 09/05/18 09:03 Dose: 75 mg Coenzyme Q10 (Coenzyme Q10) 100 mg PO DAILY [facility] Last Admin: 09/05/18 09:04 Dose: 100 mg Diazepam (Valium) 5 mg PO TID [facility] Last Admin: 09/05/18 09:07 Dose: 5 mg Sodium Chloride (Normal Saline 0.9%) 1,000 mls @ 75 mls/hr IV .[id number] [facility] Last Admin: 09/04/18 22:17 Dose: 1,000 mls Isosorbide Mononitrate (Imdur Er) 30 mg PO DAILY [facility] Last Admin: 09/05/18 09:02 Dose: 30 mg Losartan Potassium (Cozaar) 25 mg PO DAILY [facility] Last Admin: 09/05/18 09:02 Dose: 25 mg Metoprolol Succinate (Toprol Xl) 12.5 mg PO BID [facility] Last Admin: 09/05/18 09:05 Dose: 12.5 mg Morphine Sulfate (Morphine) 4 mg SLOW IVP Q4H PRN PRN Reason: Severe Pain (7-10) Last Admin: 09/05/18 11:27 Dose: 4 mg Nitroglycerin (Nitrostat) 0.4 mg SL Q5MIN PRN PRN Reason: Chest Pain Ondansetron HCl (Zofran Odt) 4 mg PO Q6H PRN PRN Reason: Nausea/Vomiting Ondansetron HCl (Zofran) 4 mg IVP Q6H PRN PRN Reason: Nausea/Vomiting Pantoprazole Sodium (Protonix) 40 mg PO DAILY [facility] Last Admin: 09/05/18 09:07 Dose: 40 mg Pregabalin (Lyrica) 75 mg PO BID [facility] Last Admin: 09/05/18 09:06 Dose: 75 mg Ranolazine (Ranexa) 500 mg PO BID [facility] Last Admin: 09/05/18 09:05 Dose: 500 mg Senna/Docusate Sodium (Senokot S) 2 tab PO BID PRN PRN Reason: Constipation Sodium Chloride (Flush - Normal Saline) 10 ml IVF PRN PRN PRN Reason: Saline Flush
[2018-09-05] MEDS: Sodium Chloride 0.9% 1,000 ML IV SCH ×2 (15:54→20:17)
[2018-09-06] MEDS: Morphine 4 MG/ML VIAL SLOW IVP PRN ×3 (02:03→16:01)
[2018-09-06] MEDS: HYDROcodone/Acetaminophen 10/325 mg Tablet PO PRN ×2 (04:35→11:05)
[2018-09-06 08:01] LABS: #Basophils 0.1 thou/uL (0.0-0.2); #Eosinphils 0.6 thou/uL (0.0-0.7); #Lymphocytes 1.6 thou/uL (1.20-3.40); #Monocytes 0.9 thou/uL (0.11-0.59); %Basophils 0.6 % (0.0-1.0); %Eosinophils 7.2 % (0.0-10.0); %Lymphocytes 19.7 % (21.0-51.0); %Monocytes 10.6 % (0.0-10.0); %Neutrophils 61.9 % (42.0-75.0); Hemoglobin 12.7 g/dL (14.0-18.0); Mean Corpuscular HGB CONC 33.1 g/dL (32.0-36.0); Mean Corpuscular Hemoglobin 30.8 pg (27.0-31.0); Mean Platelet Volume 6.6 fL (7.4-10.4); Platelet Count 214 thou/uL (130-400); RBC Distribution Width 12.6 % (11.5-14.5); Red Blood Cell (RBC) Count 4.14 mill/uL (4.70-6.10); White Blood Cell (WBC) Count 8.1 thou/uL (4.8-10.8)
[2018-09-06 08:19] LABS: Anion Gap 12 mmol/L (10-20); BUN (Urea Nitrogen) 12 mg/dL (8.4-25.7); Calc. Creatinine Clearance 116 mL/min (70-130); Calcium 9.1 mg/dL (7.8-10.44); Carbon Dioxide 26 mmol/L (22-29); Chloride 101 mmol/L (98-107); Estimated GFR-MDRD Greater than 90; Glucose 118 mg/dL (70-105); Potassium 4.4 mmol/L (3.5-5.1); Sodium 135 mmol/L (136-145)
[2018-09-06] MEDS: Clopidogrel Bisulfate 75 MG TAB PO SCH (08:20)
[2018-09-06] MEDS: Ubidecarenone 50 MG CAP PO SCH (08:20)
[2018-09-06] MEDS: Aspirin Chewable 81 MG TAB PO SCH (08:21)
[2018-09-06] MEDS: Atorvastatin Calcium 40 MG TAB PO SCH (08:21)
[2018-09-06] MEDS: Amlodipine 5 MG TAB PO SCH (08:21)
[2018-09-06] MEDS: Losartan 25 MG TAB PO SCH (08:22)
[2018-09-06] MEDS: Pregabalin 75 MG CAP PO SCH ×2 (08:22→20:18)
[2018-09-06] MEDS: Diazepam 5 MG TAB PO SCH ×2 (08:22→16:01)
[2018-09-06] MEDS: Sodium Chloride 0.9% 1,000 ML IV SCH (12:44)
--- NOTE | 2018-09-06 14:29 | PRG ---
DATE OF SERVICE: 09/06/2018 SUBJECTIVE: Mr. Wilburn is now hospital day #2 having been readmitted for some postural headache and continued back and bilateral lower extremity symptoms, worse on the left. Although he does appear to be resting comfortably when I entered the room, as we began talking, he appeared to have progressively worsening of his pain. He complains of incisional low back pain with left hip, posterior thigh, posterior calf, and foot pain. He has been on Lyrica, which he states temporarily and minimally improves his pain. He has been flat for the past roughly 48 hours, and we will attempt to begin to sit him up and mobilize him. Otherwise, we will continue with the current pain regimen, and I have consulted Anesthesia for pain management. Once his pain is under better control and his headaches have improved, he may continue to work back towards rehab placement. Please call with any changes in patient's neurologic status otherwise. At this time, the patient continues with mild to moderate weakness into the left lower extremity secondary to pain. His incision is uncovered and clean, dry, intact, but I have asked the nursing staff to keep this covered to ensure no wound breakdown. There is no drainage from the wound. Again, we will work on mobilization and better pain control, but the patient is stable from a neurologic standpoint. Job ID: [id number]
[2018-09-06] MEDS ORDERED: diphenhydrAMINE 50 MG/ML VIAL IVP PRN (16:35)
[2018-09-06] MEDS ORDERED: Zolpidem Tartrate 5 MG TAB PO PRN (16:35)
[2018-09-06] MEDS ORDERED: Promethazine HCl 25 MG/ML VIAL IM PRN (16:35)
[2018-09-06] MEDS ORDERED: Naloxone HCl 0.4 mg/ml Vial IV PRN (16:35)
[2018-09-06] MEDS ORDERED: diphenhydrAMINE 25 MG CAP PO PRN (16:35)
[2018-09-06] MEDS ORDERED: Ondansetron PF 4 MG/2 ML Vial IVP PRN (16:35)
[2018-09-06] MEDS ORDERED: Ketorolac Tromethamine 30 MG/ML VIAL IVP PRN (16:35)
[2018-09-06] MEDS ORDERED: diphenhydrAMINE 50 MG/ML VIAL IM PRN (16:35)
[2018-09-06] MEDS ORDERED: Communication Order-Pharmacy FS SCH (16:45)
[2018-09-06] MEDS: fentaNYL Citrate/PF 2,000 MCG in Sodium Chloride 0.9% 60 ML IV PRN (17:56)
--- NOTE | 2018-09-06 18:33 | PDOC.PN ---
- Subjective Encounter Start Date: 09/06/18 Encounter Start Time: 18:31 Patient lying in bed, appears comfortable. He states pain in back improving, headache present but slight improved. He denies chest pain, palpitation, shortness of breath. - Objective MAR Reviewed: Yes Vital Signs & Weight: Vital Signs (12 hours) Temp Pulse Resp BP BP BP Pulse Ox 09/06/18 16:35 97.3 F L 102 H 16 115/74 98 09/06/18 15:15 97.3 F L 102 H 16 115/74 98 09/06/18 12:00 97.3 F L 84 20 102/63 96 09/06/18 08:22 97.6 F 56 L 12 128/80 98 09/06/18 08:21 52 L 128/80 Weight Weight 189 lb 2.506 oz Result Diagrams: 09/06/18 07:51 09/06/18 07:50 Radiology Reviewed by me: Yes Phys Exam - Physical Examination Constitutional: NAD HEENT: PERRLA, oral pharynx no lesions Neck: no nodes, supple Respiratory: no wheezing, clear to auscultation bilateral Cardiovascular: RRR, no significant murmur Gastrointestinal: soft, positive bowel sounds Musculoskeletal: no edema, pulses present Neurological: non-focal, moves all 4 limbs Psychiatric: normal affect Skin: no rash, cap refill <2 seconds Dx/Plan (1) Headache Code(s): R51 - HEADACHE Status: Acute Comment: Likely secondary to CSF leak. (2) CAD (coronary artery disease) Code(s): I25.10 - ATHSCL HEART DISEASE OF [place] CORONARY ARTERY W/O ANG PCTRS Status: Chronic Qualifiers: Coronary Disease-Associated Artery/Lesion type: [place] artery Comment: stable (3) Hyperlipidemia Code(s): E78.5 - HYPERLIPIDEMIA, UNSPECIFIED Status: Chronic Comment: on Lipitor (4) Hypertension Code(s): I10 - ESSENTIAL (PRIMARY) HYPERTENSION Status: Chronic Comment: controlled - Plan cont current plan of care, PT/OT * Continue current management * Pain regimen * Neurosurgery following * Continue supportive management * BP stable * Hyponatremia improved
[2018-09-06] MEDS: Senokot S 8.6-50 MG TAB PO PRN (20:41)
[2018-09-07] MEDS: Sodium Chloride 0.9% 1,000 ML IV SCH ×2 (03:33→15:00)
[2018-09-07 04:42] LABS: #Basophils 0.1 thou/uL (0.0-0.2); #Eosinphils 0.7 thou/uL (0.0-0.7); #Lymphocytes 1.8 thou/uL (1.20-3.40); #Monocytes 1.1 thou/uL (0.11-0.59); %Basophils 0.7 % (0.0-1.0); %Eosinophils 6.9 % (0.0-10.0); %Lymphocytes 18.6 % (21.0-51.0); %Monocytes 11.4 % (0.0-10.0); %Neutrophils 62.5 % (42.0-75.0); Hemoglobin 12.2 g/dL (14.0-18.0); Mean Corpuscular Hemoglobin 30.7 pg (27.0-31.0); Mean Corpuscular Volume 93.1 fL (78.0-98.0); Mean Platelet Volume 6.6 fL (7.4-10.4); Platelet Count 224 thou/uL (130-400); RBC Distribution Width 12.8 % (11.5-14.5); Red Blood Cell (RBC) Count 3.96 mill/uL (4.70-6.10); White Blood Cell (WBC) Count 9.5 thou/uL (4.8-10.8)
[2018-09-07 04:59] LABS: Anion Gap 12 mmol/L (10-20); BUN (Urea Nitrogen) 12 mg/dL (8.4-25.7); Calc. Creatinine Clearance 119 mL/min (70-130); Carbon Dioxide 27 mmol/L (22-29); Chloride 99 mmol/L (98-107); Estimated GFR-MDRD Greater than 90; Glucose 120 mg/dL (70-105); Potassium 4.3 mmol/L (3.5-5.1); Sodium 134 mmol/L (136-145)
[2018-09-07] MEDS: Clopidogrel Bisulfate 75 MG TAB PO SCH (08:17)
[2018-09-07] MEDS: Ubidecarenone 50 MG CAP PO SCH (08:18)
[2018-09-07] MEDS: Amlodipine 5 MG TAB PO SCH (08:18)
[2018-09-07] MEDS: Atorvastatin Calcium 40 MG TAB PO SCH (08:19)
[2018-09-07] MEDS: Losartan 25 MG TAB PO SCH (08:19)
[2018-09-07] MEDS: Aspirin Chewable 81 MG TAB PO SCH (08:19)
[2018-09-07] MEDS: Pregabalin 75 MG CAP PO SCH (08:22)
[2018-09-07] MEDS: Gabapentin 300 MG CAP PO SCH ×3 (08:41→20:01)
--- NOTE | 2018-09-07 09:54 | PRG ---
DATE OF SERVICE: 09/07/2018 I saw Mr. Wilburn in his hospital room this morning. He was readmitted from rehab due to decreased pain control and inability to tolerate the therapy. He has been readmitted to the hospital now for few days and he is making some progress. He feels better today than he did yesterday because he got a full night's sleep. He has been put on a CEMENT [place] yesterday which may have helped. He got out of bed to a chair, but he did not walk in the hallways. Today, we will try to make progress by having more mobilization with Physical Therapy. He has been switched from Lyrica back to gabapentin. We will continue to monitor his progress this week and hopefully return to inpatient rehabilitation on Sunday. Job ID: [id number]
[2018-09-07] MEDS: fentaNYL Citrate/PF 2,000 MCG in Sodium Chloride 0.9% 60 ML IV PRN (12:23)
--- NOTE | 2018-09-07 16:51 | PDOC.PN ---
- Subjective Encounter Start Date: 09/07/18 Encounter Start Time: 16:48 Patient lying in bed with at bedside. He reports feeling better. Pain better controlled on PCI. Continuing PT/OT. He denies chest pain, palpitations or shortness of breath. He denies abdominal pain, but reports not having BM in 4 days. - Objective Resuscitation Status - Order Detail: 09/07/18 05:15 Resuscitation Status Routine Resuscitation Status: DNAR: NO Resuscitation Discussed with: Pt signed consents, discussed with VARUN Vega to put in order MAR Reviewed: Yes Vital Signs & Weight: Vital Signs (12 hours) Temp Pulse Resp BP BP Pulse Ox 09/07/18 16:00 97.7 F 84 18 101/74 94 L 09/07/18 11:48 97.7 F 60 20 101/68 96 09/07/18 08:18 125/78 09/07/18 08:15 98.0 F 49 L 20 125/78 94 L 09/07/18 08:00 98.0 F 49 L 20 125/78 94 L Weight Weight 189 lb 2.506 oz I&O: 09/06/18 09/07/18 09/08/18 06:59 06:59 06:59 Intake Total 1320 Output Total 1150 Balance 170 Result Diagrams: 09/07/18 04:01 09/07/18 04:01 Radiology Reviewed by me: Yes Phys Exam - Physical Examination Constitutional: NAD HEENT: PERRLA, moist MMs, oral pharynx no lesions Neck: no nodes, full ROM Respiratory: no wheezing, clear to auscultation bilateral Cardiovascular: RRR, no significant murmur Gastrointestinal: soft, positive bowel sounds Musculoskeletal: no edema, pulses present Neurological: non-focal, moves all 4 limbs Lymphatic: no nodes Psychiatric: normal affect, A&O x 3 Skin: no rash, cap refill <2 seconds Dx/Plan (1) Headache Code(s): R51 - HEADACHE Status: Acute Comment: Likely secondary to CSF leak. (2) CAD (coronary artery disease) Code(s): I25.10 - ATHSCL HEART DISEASE OF [place] CORONARY ARTERY W/O ANG PCTRS Status: Chronic Qualifiers: Coronary Disease-Associated Artery/Lesion type: [place] artery Comment: stable (3) Hyperlipidemia Code(s): E78.5 - HYPERLIPIDEMIA, UNSPECIFIED Status: Chronic Comment: on Lipitor (4) Hypertension Code(s): I10 - ESSENTIAL (PRIMARY) HYPERTENSION Status: Chronic Comment: controlled (5) Constipation Code(s): K59.00 - CONSTIPATION, UNSPECIFIED Status: Acute (6) Lumbar radicular pain Code(s): M54.16 - RADICULOPATHY, LUMBAR REGION Status: Acute Comment: Per NS. on norco,Lyrica ,Neurontin.Fentanyl patch stopped per Pt request.manage per primary team - Plan cont current plan of care, PT/OT, DVT proph w/SCDs * Continue current medical management * Continue pain control * Sodium stable, monitor BMP * PT/OT * Add bowel regimen as he has not had BM in 4 days * Transition to inpatient
[2018-09-07] MEDS ORDERED: Magnesium Citrate 300 ML BOT PO SCH (17:00)
[2018-09-08] MEDS: Sodium Chloride 0.9% 1,000 ML IV SCH ×2 (05:38→13:07)
[2018-09-08 07:34] LABS: #Eosinphils 0.5 thou/uL (0.0-0.7); #Lymphocytes 1.6 thou/uL (1.20-3.40); #Monocytes 0.9 thou/uL (0.11-0.59); #Neutrophils 6.6 thou/uL (1.40-6.50); %Basophils 0.4 % (0.0-1.0); %Eosinophils 4.8 % (0.0-10.0); %Lymphocytes 16.6 % (21.0-51.0); %Monocytes 9.5 % (0.0-10.0); %Neutrophils 68.8 % (42.0-75.0); Hemoglobin 12.5 g/dL (14.0-18.0); Mean Corpuscular HGB CONC 33.3 g/dL (32.0-36.0); Mean Corpuscular Volume 93.1 fL (78.0-98.0); Mean Platelet Volume 6.4 fL (7.4-10.4); Platelet Count 229 thou/uL (130-400); RBC Distribution Width 12.6 % (11.5-14.5); Red Blood Cell (RBC) Count 4.02 mill/uL (4.70-6.10); White Blood Cell (WBC) Count 9.6 thou/uL (4.8-10.8)
[2018-09-08 07:53] LABS: Anion Gap 13 mmol/L (10-20); BUN (Urea Nitrogen) 12 mg/dL (8.4-25.7); Calc. Creatinine Clearance 122 mL/min (70-130); Calcium 9.3 mg/dL (7.8-10.44); Carbon Dioxide 26 mmol/L (22-29); Chloride 99 mmol/L (98-107); Estimated GFR-MDRD Greater than 90; Glucose 119 mg/dL (70-105); Sodium 133 mmol/L (136-145)
[2018-09-08] MEDS: Ubidecarenone 50 MG CAP PO SCH (08:40)
[2018-09-08] MEDS: Atorvastatin Calcium 40 MG TAB PO SCH (08:41)
[2018-09-08] MEDS: Gabapentin 300 MG CAP PO SCH (08:41)
[2018-09-08] MEDS: Clopidogrel Bisulfate 75 MG TAB PO SCH (08:41)
[2018-09-08] MEDS: Aspirin Chewable 81 MG TAB PO SCH (08:41)
--- NOTE | 2018-09-08 09:08 | PRG ---
DATE OF SERVICE: 09/08/2018 Mr. Wilburn is a patient of Dr. Andino with surgery on the lumbar spine, 08/20/2018. He went to rehab and then came back a few days ago due to a spinal headache. Over the last 2 days, he has been progressively getting up and moving around more. Yesterday, he states that with the assistance of physical therapy, he was able to walk in the [place], however, this did increase his headache. He states that he has a lot of cramps in his lower legs, but did get decent amount of sleep. There were no fevers reported or other events last night. We would like to continue the work on mobilization throughout today. Job ID: [id number]
[2018-09-08] MEDS: fentaNYL Citrate/PF 2,000 MCG in Sodium Chloride 0.9% 60 ML IV PRN (09:48)
--- NOTE | 2018-09-08 10:03 | PRG ---
DATE OF SERVICE: 09/08/2018 I saw Mr. Wilburn this morning. He says he has a headache, but it is not positional. He was able to walk in the hallways yesterday which is an improvement. Overnight, I see a T-max of 98.5 degrees Fahrenheit and recorded blood pressures range from the 100 to 130s. There is no change in neurological examination. The incision is well approximated and completely dry. White blood cell count is 9.6, and the sodium is 133. Mr. Wilburn will continue mobilization today. He will have assistance with walking. He needs to use a walker. As he makes gradual progress, he will return to inpatient rehabilitation as a goal. Job ID: [id number]
[2018-09-08] MEDS: Amlodipine 5 MG TAB PO SCH (10:41)
[2018-09-08] MEDS: Losartan 25 MG TAB PO SCH (10:41)
--- NOTE | 2018-09-08 13:41 | PDOC.EVN ---
Event Note - Event Note Event Note: Saw patient along with Mihir. Patient continues to have pain. Still struggling with pain with attempts to get out of bed and ambulate. Believes he still very much needs the [place]. He became tearful at one point because he is very frustrated with the pain and the lack of progress in making him better. Headache is back. He is awake and alert. Very interactive and cognitively intact. He says the Lyrica worked significantly better than the Gabapentin is. He would much prefer to be back on the Lyrica. Will make sure there was not a contraindication for the Lyrica. If not, will get him back on it.
--- NOTE | 2018-09-08 13:42 | PDOC.PN ---
- Subjective Encounter Start Date: 09/08/18 Encounter Start Time: 13:41 Patient lali loya bed with at bedside. He denies bowel movement, but reports bowel sounds and flatulence and is drinking mag citrate now. He reports pain worse today, he states he noticed better pain control while he was on his lyrica. He denies chest pain or shortness of breath. - Objective Resuscitation Status - Order Detail: 09/07/18 05:15 Resuscitation Status Routine Resuscitation Status: DNAR: NO Resuscitation Discussed with: Pt signed consents, discussed with VARUN Vega to put in order MAR Reviewed: Yes Vital Signs & Weight: Vital Signs (12 hours) Temp Pulse Resp BP Pulse Ox 09/08/18 12:00 98.5 F 62 20 110/65 95 09/08/18 10:41 56 L 09/08/18 08:00 98.5 F 56 L 16 115/71 96 09/08/18 07:40 96 09/08/18 04:15 97.3 F L 75 16 138/77 97 Weight Weight 189 lb 2.506 oz I&O: 09/07/18 09/08/18 09/09/18 06:59 06:59 06:59 Intake Total 1320 1080 Output Total 1150 1325 Balance 170 -245 Result Diagrams: 09/08/18 07:20 09/08/18 07:20 Phys Exam - Physical Examination Moderate due to pain HEENT: PERRLA, moist MMs, oral pharynx no lesions Neck: no nodes, full ROM Respiratory: no wheezing, no rales Cardiovascular: RRR, no significant murmur Gastrointestinal: soft, positive bowel sounds Musculoskeletal: no edema, pulses present Neurological: non-focal, moves all 4 limbs Psychiatric: normal affect, A&O x 3 Skin: no rash Dx/Plan (1) Headache Code(s): R51 - HEADACHE Status: Acute Comment: Likely secondary to CSF leak. (2) CAD (coronary artery disease) Code(s): I25.10 - ATHSCL HEART DISEASE OF [place] CORONARY ARTERY W/O ANG PCTRS Status: Chronic Qualifiers: Coronary Disease-Associated Artery/Lesion type: [place] artery Comment: stable (3) Hyperlipidemia Code(s): E78.5 - HYPERLIPIDEMIA, UNSPECIFIED Status: Chronic Comment: on Lipitor (4) Hypertension Code(s): I10 - ESSENTIAL (PRIMARY) HYPERTENSION Status: Chronic Comment: controlled (5) Constipation Code(s): K59.00 - CONSTIPATION, UNSPECIFIED Status: Acute (6) Lumbar radicular pain Code(s): M54.16 - RADICULOPATHY, LUMBAR REGION Status: Acute - Plan cont current plan of care, plan discussed w/ family, PT/OT, DVT proph w/SCDs * Continue pain control * Add Lyrica and d/c gabapentin per patient request as he noticed improved pain with lyrica * Neurosurgery following * Continue PT/OT * Activity as tolerated * Continue mag citrate for BM * Monitor vitals as BP low today, some morning meds held
[2018-09-08] MEDS: Pregabalin 75 MG CAP PO SCH (20:25)
[2018-09-09] MEDS: fentaNYL Citrate/PF 2,000 MCG in Sodium Chloride 0.9% 60 ML IV PRN (04:52)
--- NOTE | 2018-09-09 09:38 | PDOC.PN ---
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 No overnight events - Objective Resuscitation Status - Order Detail: 09/07/18 05:15 Resuscitation Status Routine Resuscitation Status: DNAR: NO Resuscitation Discussed with: Pt signed consents, discussed with VARUN Vega to put in order MAR Reviewed: Yes Vital Signs & Weight: Vital Signs (12 hours) Temp Pulse Resp BP Pulse Ox 09/09/18 07:35 98.2 F 65 16 133/80 95 09/09/18 04:00 98.1 F 73 16 125/73 96 09/09/18 00:00 98 F 72 16 134/76 97 Weight Weight 189 lb 2.506 oz I&O: 09/08/18 09/09/18 09/10/18 06:59 06:59 06:59 Intake Total 1080 2640 Output Total 1325 1675 Balance -245 965 Result Diagrams: 09/08/18 07:20 09/08/18 07:20 Phys Exam - Physical Examination Constitutional: NAD HEENT: PERRLA, moist MMs, sclera anicteric Neck: no JVD, supple Respiratory: no wheezing, no rales, no rhonchi Cardiovascular: RRR, no significant murmur, no rub Gastrointestinal: soft, non-tender, no distention, positive bowel sounds Musculoskeletal: no edema, pulses present Neurological: non-focal, normal sensation, moves all 4 limbs Lymphatic: no nodes Psychiatric: normal affect, A&O x 3 Skin: no rash, normal turgor Dx/Plan (1) Headache Code(s): R51 - HEADACHE Status: Acute Comment: Likely secondary to CSF leak. (2) Constipation Code(s): K59.00 - CONSTIPATION, UNSPECIFIED Status: Resolved (3) CAD (coronary artery disease) Code(s): I25.10 - ATHSCL HEART DISEASE OF [place] CORONARY ARTERY W/O ANG PCTRS Status: Chronic Qualifiers: Coronary Disease-Associated Artery/Lesion type: [place] artery Comment: stable (4) Hyperlipidemia Code(s): E78.5 - HYPERLIPIDEMIA, UNSPECIFIED Status: Chronic Comment: on Lipitor (5) Hypertension Code(s): I10 - ESSENTIAL (PRIMARY) HYPERTENSION Status: Chronic Comment: controlled (6) Lumbar radicular pain Code(s): M54.16 - RADICULOPATHY, LUMBAR REGION Status: Chronic - Plan cont current plan of care, 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 Review of Systems - Review of Systems ENT: negative: Ear Pain, Ear Discharge, Nose Pain, Nose Discharge, Nose Congestion, Mouth Pain, Mouth Swelling, Throat Pain, Throat Swelling, Other Respiratory: negative: Cough, Dry, Shortness of Breath, Hemoptysis, SOB with Excertion, Pleuritic Pain, Sputum, Wheezing Cardiovascular: negative: chest pain, palpitations, orthopnea, paroxysmal nocturnal dyspnea, edema, light headedness, other Gastrointestinal: negative: Nausea, Vomiting, Abdominal Pain, Diarrhea, Constipation, Melena, Hematochezia, Other Genitourinary: negative: Dysuria, Frequency, Incontinence, Hematuria, Retention , Other Musculoskeletal: negative: Neck Pain, Shoulder Pain, Arm Pain, Back Pain, Hand Pain, Leg Pain, Foot Pain, Other Skin: negative: Rash, Lesions, [place], Bruising, Other - Medications/Allergies Allergies/Adverse Reactions: Allergies Allergy/AdvReac Type Severity Reaction Status Date / Time azithromycin Allergy Verified 08/20/18 18:02 [From Zithromax Z-Sb] ciprofloxacin [From Cipro] Allergy Verified 08/20/18 18:02 lisinopril Allergy Verified 08/20/18 18:02 rosuvastatin [From Crestor] Allergy Verified 08/20/18 18:02 Medications: Current Medications Acetaminophen (Tylenol) 650 mg PO Q4H PRN PRN Reason: Headache/Fever/Mild Pain (1-3) Acetaminophen (Tylenol) 650 mg SD Q4H PRN PRN Reason: Headache/Fever/Mild Pain (1-3) Amlodipine Besylate (Norvasc) 5 mg PO DAILY [facility] Last Admin: 09/08/18 10:41 Dose: Not Given Aspirin (Aspirin Chewable) 81 mg PO DAILY [facility] Last Admin: 09/08/18 08:41 Dose: 81 mg Atorvastatin Calcium (Lipitor) 40 mg PO DAILY [facility] Last Admin: 09/08/18 08:41 Dose: 40 mg Cholecalciferol (Vitamin D3) 1,000 units PO DAILY [facility] Last Admin: 09/08/18 08:40 Dose: 1,000 units Clopidogrel Bisulfate (Plavix) 75 mg PO DAILY [facility] Last Admin: 09/08/18 08:41 Dose: 75 mg Coenzyme Q10 (Coenzyme Q10) 100 mg PO DAILY [facility] Last Admin: 09/08/18 08:40 Dose: 100 mg Diphenhydramine HCl (Benadryl) 25 mg IVP Q3H PRN PRN Reason: Itching Diphenhydramine HCl (Benadryl) 25 mg PO Q3H PRN PRN Reason: Itching Diphenhydramine HCl (Benadryl) 25 mg IM Q3H PRN PRN Reason: Itching Sodium Chloride (Normal Saline 0.9%) 1,000 mls @ 75 mls/hr IV .[id number] [facility] Last Admin: 09/08/18 13:07 Dose: Not Given Fentanyl Citrate 2,000 mcg/ (Sodium Chloride) 100 mls @ 0 mls/hr IV INF PRN PRN Reason: Pain Last Admin: 09/09/18 04:52 Dose: 100 mls Isosorbide Mononitrate (Imdur Er) 30 mg PO DAILY [facility] Last Admin: 09/08/18 08:40 Dose: 30 mg Ketorolac Tromethamine (Toradol) 30 mg IVP Q6H PRN PRN Reason: Moderate Pain (4-6) Stop: 09/09/18 16:36 Losartan Potassium (Cozaar) 25 mg PO DAILY [facility] Last Admin: 09/08/18 10:41 Dose: Not Given Metoprolol Succinate (Toprol Xl) 12.5 mg PO BID [facility] Last Admin: 09/08/18 20:25 Dose: Not Given Naloxone HCl (Narcan) 0.2 mg IV Q5MIN PRN PRN Reason: Opiate Reversal Nitroglycerin (Nitrostat) 0.4 mg SL Q5MIN PRN PRN Reason: Chest Pain Ondansetron HCl (Zofran Odt) 4 mg PO Q6H PRN PRN Reason: Nausea/Vomiting Ondansetron HCl (Zofran) 4 mg IVP Q6H PRN PRN Reason: Nausea/Vomiting Pantoprazole Sodium (Protonix) 40 mg PO DAILY [facility] Last Admin: 09/08/18 08:41 Dose: 40 mg Pregabalin (Lyrica) 75 mg PO BID [facility] Last Admin: 09/08/18 20:25 Dose: 75 mg Promethazine HCl (Phenergan) 12.5 mg IM Q4H PRN PRN Reason: Nausea/Vomiting Ranolazine (Ranexa) 500 mg PO BID [facility] Last Admin: 09/08/18 20:25 Dose: 500 mg Senna/Docusate Sodium (Senokot S) 2 tab PO BID PRN PRN Reason: Constipation Last Admin: 09/06/18 20:41 Dose: 2 tab Sodium Chloride (Flush - Normal Saline) 10 ml IVF PRN PRN PRN Reason: Saline Flush Zolpidem Tartrate (Ambien) 5 mg PO HSPRN PRN PRN Reason: Insomnia
[2018-09-09] MEDS: Ubidecarenone 50 MG CAP PO SCH (09:51)
[2018-09-09] MEDS: Pregabalin 75 MG CAP PO SCH ×2 (09:52→20:10)
[2018-09-09] MEDS: Aspirin Chewable 81 MG TAB PO SCH (09:52)
[2018-09-09] MEDS: Clopidogrel Bisulfate 75 MG TAB PO SCH (09:53)
[2018-09-09] MEDS: Atorvastatin Calcium 40 MG TAB PO SCH (09:53)
[2018-09-09] MEDS: Sodium Chloride 0.9% 1,000 ML IV SCH ×2 (09:54→21:35)
--- NOTE | 2018-09-09 10:44 | PRG ---
DATE OF SERVICE: 09/07/2018 SUBJECTIVE: Mr. Wilburn is a 58-year-old male, who has returned to the hospital following laminectomy by Dr. Andino. He returned to the hospital due to Spinal SPEAR. The patient has been flat for 48 hours and yesterday slowly sat up. Pt. state that he got up to use the bed side toilet, this gave him SPEAR. OBJECTIVE: VITAL SIGNS: Temperature 98.4, heart rate 75, respirations 20, 97% O2 saturation on room air, blood pressure 124/73. EXTREMITIES: The patient is moving all 4 extremities. He has weakness in the left lower extremity due to pain and states he has a headache. He states that he has severe pain in his lower back weakness in left LE due to pain. We will continue to ambulate pt.slowly and have Physical Therapy work with him and continue to work to continue to increase strength. Job ID: [id number] [facility]
[2018-09-09] MEDS: Losartan 25 MG TAB PO SCH (10:46)
[2018-09-09] MEDS: Amlodipine 5 MG TAB PO SCH (10:46)
[2018-09-09] MEDS ORDERED: HYDROcodone/Acetaminophen 10/325 mg Tablet PO PRN (11:45)
[2018-09-09] MEDS: fentaNYL 50 mcg/hour Patch TD SCH (12:49)
[2018-09-09] MEDS: HYDROcodone/Acetaminophen 10/325 mg Tablet PO PRN ×2 (16:51→21:31)
[2018-09-10] MEDS: HYDROcodone/Acetaminophen 10/325 mg Tablet PO PRN ×6 (00:54→23:33)
[2018-09-10] MEDS: Pregabalin 75 MG CAP PO SCH ×2 (08:31→20:16)
[2018-09-10] MEDS: Aspirin Chewable 81 MG TAB PO SCH (08:32)
[2018-09-10] MEDS: Senokot S 8.6-50 MG TAB PO PRN (08:33)
[2018-09-10] MEDS: Clopidogrel Bisulfate 75 MG TAB PO SCH (08:37)
[2018-09-10] MEDS: Ubidecarenone 50 MG CAP PO SCH (08:37)
[2018-09-10] MEDS: Losartan 25 MG TAB PO SCH (08:37)
[2018-09-10] MEDS: Amlodipine 5 MG TAB PO SCH (08:38)
[2018-09-10] MEDS: Atorvastatin Calcium 40 MG TAB PO SCH (08:38)
[2018-09-10] MEDS: Sodium Chloride 0.9% 1,000 ML IV SCH ×2 (09:47→21:19)
--- NOTE | 2018-09-10 09:53 | PDOC.PN ---
- Subjective Encounter Start Date: 09/10/18 Encounter Start Time: 08:20 pt has lumbar radicular pain with radicular symptoms in left leg, he is on [employer] MARKET[employer]NA[employer] he has pain scale 7/10, he is not able to more PT yet - Objective Resuscitation Status - Order Detail: 09/07/18 05:15 Resuscitation Status Routine Resuscitation Status: DNAR: NO Resuscitation Discussed with: Pt signed consents, discussed with VARUN Vega to put in order MAR Reviewed: Yes Vital Signs & Weight: Vital Signs (12 hours) Temp Pulse Resp BP Pulse Ox 09/10/18 08:38 51 L 09/10/18 08:00 98 F 51 L 14 123/72 93 L 09/10/18 04:00 97.4 F L 72 16 147/85 H 98 09/10/18 00:00 98.1 F 60 16 126/76 96 Weight Weight 189 lb 2.506 oz I&O: 09/09/18 09/10/18 09/11/18 06:59 06:59 06:59 Intake Total 2640 2160 Output Total 1675 2175 Balance 965 -15 Result Diagrams: 09/08/18 07:20 09/08/18 07:20 Phys Exam - Physical Examination Constitutional: NAD HEENT: PERRLA, moist MMs, sclera anicteric Neck: no JVD, supple Respiratory: no wheezing, no rales, no rhonchi Cardiovascular: RRR, no significant murmur, no rub Gastrointestinal: soft, non-tender, no distention, positive bowel sounds Musculoskeletal: no edema, pulses present Neurological: non-focal, normal sensation Lymphatic: no nodes Psychiatric: normal affect, A&O x 3 Skin: no rash, normal turgor Dx/Plan (1) Lumbar radicular pain Code(s): M54.16 - RADICULOPATHY, LUMBAR REGION Status: Acute Comment: acute on chronic (2) Headache Code(s): R51 - HEADACHE Status: Acute Comment: postural headache, improving (3) Constipation Code(s): K59.00 - CONSTIPATION, UNSPECIFIED Status: Resolved (4) CAD (coronary artery disease) Code(s): I25.10 - ATHSCL HEART DISEASE OF [place] CORONARY ARTERY W/O ANG PCTRS Status: Chronic Qualifiers: Coronary Disease-Associated Artery/Lesion type: [place] artery Comment: stable (5) Hyperlipidemia Code(s): E78.5 - HYPERLIPIDEMIA, UNSPECIFIED Status: Chronic Comment: on Lipitor (6) Hypertension Code(s): I10 - ESSENTIAL (PRIMARY) HYPERTENSION Status: Chronic Comment: controlled - Plan cont current plan of care, PT/OT * 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 need for any imaging? * medication reviewed as below * symptomatic treatment. Review of Systems - Review of Systems Eyes: negative: Pain, Vision Change, Conjunctivae Inflammation, Eyelid Inflammation, Redness, Other ENT: negative: Ear Pain, Ear Discharge, Nose Pain, Nose Discharge, Nose Congestion, Mouth Pain, Mouth Swelling, Throat Pain, Throat Swelling, Other Respiratory: negative: Cough, Dry, Shortness of Breath, Hemoptysis, SOB with Excertion, Pleuritic Pain, Sputum, Wheezing Cardiovascular: negative: chest pain, palpitations, orthopnea, paroxysmal nocturnal dyspnea, edema, light headedness, other Gastrointestinal: negative: Nausea, Vomiting, Abdominal Pain, Diarrhea, Constipation, Melena, Hematochezia, Other Genitourinary: negative: Dysuria, Frequency, Incontinence, Hematuria, Retention , Other Musculoskeletal: Back Pain, Leg Pain. negative: Neck Pain, Shoulder Pain, Arm Pain, Hand Pain, Foot Pain, Other - Medications/Allergies Allergies/Adverse Reactions: Allergies Allergy/AdvReac Type Severity Reaction Status Date / Time azithromycin Allergy Verified 08/20/18 18:02 [From Zithromax Z-Sb] ciprofloxacin [From Cipro] Allergy Verified 08/20/18 18:02 lisinopril Allergy Verified 08/20/18 18:02 rosuvastatin [From Crestor] Allergy Verified 08/20/18 18:02 Medications: Current Medications Acetaminophen (Tylenol) 650 mg PO Q4H PRN PRN Reason: Headache/Fever/Mild Pain (1-3) Acetaminophen (Tylenol) 650 mg [place] Q4H PRN PRN Reason: Headache/Fever/Mild Pain (1-3) Hydrocodone Bitart/Acetaminophen ([place] 10/325) 1 tab PO Q4H PRN PRN Reason: Moderate Pain (4-6) Last Admin: 09/09/18 12:50 Dose: 1 tab Hydrocodone Bitart/Acetaminophen ([place] 10/325) 2 tab PO Q4H PRN PRN Reason: Severe Pain (7-10) Last Admin: 09/10/18 09:42 Dose: 2 tab Amlodipine Besylate (Norvasc) 5 mg PO DAILY [facility] Last Admin: 09/10/18 08:38 Dose: 5 mg Aspirin (Aspirin Chewable) 81 mg PO DAILY [facility] Last Admin: 09/10/18 08:32 Dose: 81 mg Atorvastatin Calcium (Lipitor) 40 mg PO DAILY [facility] Last Admin: 09/10/18 08:38 Dose: 40 mg Cholecalciferol (Vitamin D3) 1,000 units PO DAILY [facility] Last Admin: 09/10/18 08:33 Dose: 1,000 units Clopidogrel Bisulfate (Plavix) 75 mg PO DAILY [facility] Last Admin: 09/10/18 08:37 Dose: 75 mg Coenzyme Q10 (Coenzyme Q10) 100 mg PO DAILY [facility] Last Admin: 09/10/18 08:37 Dose: 100 mg Diphenhydramine HCl (Benadryl) 25 mg IVP Q3H PRN PRN Reason: Itching Diphenhydramine HCl (Benadryl) 25 mg PO Q3H PRN PRN Reason: Itching Diphenhydramine HCl (Benadryl) 25 mg IM Q3H PRN PRN Reason: Itching Fentanyl (Duragesic) 50 mcg TD Q3D [facility] Last Admin: 09/09/18 12:49 Dose: 50 mcg Sodium Chloride (Normal Saline 0.9%) 1,000 mls @ 75 mls/hr IV .[id number] [facility] Last Admin: 09/10/18 09:47 Dose: Not Given Fentanyl Citrate 2,000 mcg/ (Sodium Chloride) 100 mls @ 0 mls/hr IV INF PRN PRN Reason: Pain Stop: 09/10/18 10:00 Last Admin: 09/09/18 04:52 Dose: 100 mls Isosorbide Mononitrate (Imdur Er) 30 mg PO DAILY [facility] Last Admin: 09/10/18 08:37 Dose: 30 mg Losartan Potassium (Cozaar) 25 mg PO DAILY [facility] Last Admin: 09/10/18 08:37 Dose: 25 mg Metoprolol Succinate (Toprol Xl) 12.5 mg PO BID [facility] Last Admin: 09/10/18 08:34 Dose: 12.5 mg Naloxone HCl (Narcan) 0.2 mg IV Q5MIN PRN PRN Reason: Opiate Reversal Nitroglycerin (Nitrostat) 0.4 mg SL Q5MIN PRN PRN Reason: Chest Pain Ondansetron HCl (Zofran Odt) 4 mg PO Q6H PRN PRN Reason: Nausea/Vomiting Ondansetron HCl (Zofran) 4 mg IVP Q6H PRN PRN Reason: Nausea/Vomiting Pantoprazole Sodium (Protonix) 40 mg PO DAILY [facility] Last Admin: 09/10/18 08:34 Dose: 40 mg Pregabalin (Lyrica) 75 mg PO BID [facility] Last Admin: 09/10/18 08:31 Dose: 75 mg Promethazine HCl (Phenergan) 12.5 mg IM Q4H PRN PRN Reason: Nausea/Vomiting Ranolazine (Ranexa) 500 mg PO BID [facility] Last Admin: 09/10/18 08:37 Dose: 500 mg Senna/Docusate Sodium (Senokot S) 2 tab PO BID PRN PRN Reason: Constipation Last Admin: 09/10/18 08:33 Dose: 2 tab Sodium Chloride (Flush - Normal Saline) 10 ml IVF PRN PRN PRN Reason: Saline Flush Zolpidem Tartrate (Ambien) 5 mg PO HSPRN PRN PRN Reason: Insomnia
--- NOTE | 2018-09-10 16:08 | PQF ---
CLINICAL DOCUMENTATION IMPROVEMENT CLARIFICATION FORM: ICD-10 Updated PLEASE DO AN ADDENDUM TO THE PROGRESS NOTE WITH ANY DOCUMENTATION UPDATES OR ADDITIONS AND CARRY THROUGH TO DC SUMMARY. THANK YOU. DATE: 09/10/2018 ATTN: Dr. Card Please exercise your independent, professional judgment in responding to the clarification form. Clinical indicators are provided on the bottom of this form for your review Please check appropriate box(s): [ x ] Postural SPEAR related to recent surgery on 08/26/18 (Lumbar fusion w/CSF leak repair) [ ] Postural SPEAR not related to recent surgery on 08/26/18 (Lumbar fusion w/CSF leak repair). [ ] Other diagnosis [ ] Unable to determine In addition, please specify: Present on Admission (POA): [x ] Yes [ ] No [ ] Unable to determine CLINICAL INDICATORS - SIGNS / SYMPTOMS / LABS H&P 09/04: The pt reports this morning when he went to the rehab, they checked his back and saw that it was leaking. Spinal fluid leak. PN 09/05: Headache. Acute. Likely secondary to CSF leak RISK: Consult 09/04 ([facility]) Lumbar fusion w/CSF Leak repair on 08/26/18 TREATMENT: Neurosurgery consult Order 09/04: IV NS 75 mls/hr Thank you, Laura (This form is maintained as a part of the permanent medical record) 2014 [employer], [employer]. All Rights Reserved Laura Hylton RN, BSN [email or web address] Office: [phone] [facility]ENTER[facility]dulaz[facility]
[2018-09-11] MEDS: HYDROcodone/Acetaminophen 10/325 mg Tablet PO PRN ×6 (06:37→21:54)
[2018-09-11] MEDS: Amlodipine 5 MG TAB PO SCH (08:36)
[2018-09-11] MEDS: Ubidecarenone 50 MG CAP PO SCH (08:36)
[2018-09-11] MEDS: Clopidogrel Bisulfate 75 MG TAB PO SCH (08:37)
[2018-09-11] MEDS: Pregabalin 75 MG CAP PO SCH ×2 (08:37→21:53)
[2018-09-11] MEDS: Losartan 25 MG TAB PO SCH (08:38)
[2018-09-11] MEDS: Atorvastatin Calcium 40 MG TAB PO SCH (08:39)
[2018-09-11] MEDS: Aspirin Chewable 81 MG TAB PO SCH (08:39)
--- NOTE | 2018-09-11 11:37 | PDOC.PN ---
- Subjective Encounter Start Date: 09/11/18 Encounter Start Time: 08:15 pt does not want discharge until his pain controlled and he is able to do some PT - Objective Resuscitation Status - Order Detail: 09/07/18 05:15 Resuscitation Status Routine Resuscitation Status: DNAR: NO Resuscitation Discussed with: Pt signed consents, discussed with VARUN Vega to put in order MAR Reviewed: Yes Vital Signs & Weight: Vital Signs (12 hours) Temp Pulse Resp BP BP Pulse Ox 09/11/18 08:36 61 117/71 09/11/18 07:34 98.2 F 61 18 117/71 97 09/11/18 04:27 97.9 F 66 18 117/68 98 09/11/18 00:42 98.2 F 60 18 119/73 97 Weight Weight 189 lb 2.506 oz I&O: 09/10/18 09/11/18 09/12/18 06:59 06:59 06:59 Intake Total 2160 1990 Output Total 2175 2350 Balance -15 -360 Result Diagrams: 09/08/18 07:20 09/08/18 07:20 Phys Exam - Physical Examination Constitutional: NAD HEENT: PERRLA, moist MMs, sclera anicteric Neck: no JVD, supple Respiratory: no wheezing, no rales, no rhonchi Cardiovascular: RRR, no significant murmur, no rub Gastrointestinal: soft, non-tender, no distention, positive bowel sounds Musculoskeletal: no edema, pulses present Neurological: non-focal, normal sensation Lymphatic: no nodes Psychiatric: normal affect, A&O x 3 Skin: no rash, normal turgor Dx/Plan (1) Acute exacerbation of chronic low back pain Code(s): M54.5 - LOW BACK PAIN; G89.29 - OTHER CHRONIC PAIN Status: Acute (2) Lumbar radicular pain Code(s): M54.16 - RADICULOPATHY, LUMBAR REGION Status: Acute Comment: acute on chronic (3) Headache Code(s): R51 - HEADACHE Status: Resolved Comment: postural headache, improving (4) Constipation Code(s): K59.00 - CONSTIPATION, UNSPECIFIED Status: Resolved (5) CAD (coronary artery disease) Code(s): I25.10 - ATHSCL HEART DISEASE OF [place] CORONARY ARTERY W/O ANG PCTRS Status: Chronic Qualifiers: Coronary Disease-Associated Artery/Lesion type: [place] artery Comment: stable (6) Hyperlipidemia Code(s): E78.5 - HYPERLIPIDEMIA, UNSPECIFIED Status: Chronic Comment: on Lipitor (7) Hypertension Code(s): I10 - ESSENTIAL (PRIMARY) HYPERTENSION Status: Chronic Comment: controlled - Plan cont current plan of care, 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 Review of Systems - Review of Systems ENT: negative: Ear Pain, Ear Discharge, Nose Pain, Nose Discharge, Nose Congestion, Mouth Pain, Mouth Swelling, Throat Pain, Throat Swelling, Other Respiratory: negative: Cough, Dry, Shortness of Breath, Hemoptysis, SOB with Excertion, Pleuritic Pain, Sputum, Wheezing Cardiovascular: negative: chest pain, palpitations, orthopnea, paroxysmal nocturnal dyspnea, edema, light headedness, other Gastrointestinal: negative: Nausea, Vomiting, Abdominal Pain, Diarrhea, Constipation, Melena, Hematochezia, Other Genitourinary: negative: Dysuria, Frequency, Incontinence, Hematuria, Retention , Other Musculoskeletal: Back Pain. negative: Neck Pain, Shoulder Pain, Arm Pain, Hand Pain, Leg Pain, Foot Pain, Other - Medications/Allergies Allergies/Adverse Reactions: Allergies Allergy/AdvReac Type Severity Reaction Status Date / Time azithromycin Allergy Verified 08/20/18 18:02 [From Zithromax Z-Sb] ciprofloxacin [From Cipro] Allergy Verified 08/20/18 18:02 lisinopril Allergy Verified 08/20/18 18:02 rosuvastatin [From Crestor] Allergy Verified 08/20/18 18:02 Medications: Current Medications Acetaminophen (Tylenol) 650 mg PO Q4H PRN PRN Reason: Headache/Fever/Mild Pain (1-3) Acetaminophen (Tylenol) 650 mg [place] Q4H PRN PRN Reason: Headache/Fever/Mild Pain (1-3) Hydrocodone Bitart/Acetaminophen ([place] 10/325) 1 tab PO Q4H PRN PRN Reason: Moderate Pain (4-6) Last Admin: 09/09/18 12:50 Dose: 1 tab Hydrocodone Bitart/Acetaminophen ([place] 10/325) 2 tab PO Q4H PRN PRN Reason: Severe Pain (7-10) Last Admin: 09/11/18 10:38 Dose: 2 tab Amlodipine Besylate (Norvasc) 5 mg PO DAILY [facility] Last Admin: 09/11/18 08:36 Dose: 5 mg Aspirin (Aspirin Chewable) 81 mg PO DAILY [facility] Last Admin: 09/11/18 08:39 Dose: 81 mg Atorvastatin Calcium (Lipitor) 40 mg PO DAILY [facility] Last Admin: 09/11/18 08:39 Dose: 40 mg Cholecalciferol (Vitamin D3) 1,000 units PO DAILY [facility] Last Admin: 09/11/18 08:35 Dose: 1,000 units Clopidogrel Bisulfate (Plavix) 75 mg PO DAILY [facility] Last Admin: 09/11/18 08:37 Dose: 75 mg Coenzyme Q10 (Coenzyme Q10) 100 mg PO DAILY [facility] Last Admin: 09/11/18 08:36 Dose: 100 mg Diphenhydramine HCl (Benadryl) 25 mg IVP Q3H PRN PRN Reason: Itching Diphenhydramine HCl (Benadryl) 25 mg PO Q3H PRN PRN Reason: Itching Diphenhydramine HCl (Benadryl) 25 mg IM Q3H PRN PRN Reason: Itching Fentanyl (Duragesic) 50 mcg TD Q3D [facility] Last Admin: 09/09/18 12:49 Dose: 50 mcg Isosorbide Mononitrate (Imdur Er) 30 mg PO DAILY [facility] Last Admin: 09/11/18 08:37 Dose: 30 mg Losartan Potassium (Cozaar) 25 mg PO DAILY [facility] Last Admin: 09/11/18 08:38 Dose: 25 mg Metoprolol Succinate (Toprol Xl) 12.5 mg PO BID [facility] Last Admin: 09/11/18 08:38 Dose: 12.5 mg Naloxone HCl (Narcan) 0.2 mg IV Q5MIN PRN PRN Reason: Opiate Reversal Nitroglycerin (Nitrostat) 0.4 mg SL Q5MIN PRN PRN Reason: Chest Pain Ondansetron HCl (Zofran Odt) 4 mg PO Q6H PRN PRN Reason: Nausea/Vomiting Ondansetron HCl (Zofran) 4 mg IVP Q6H PRN PRN Reason: Nausea/Vomiting Pantoprazole Sodium (Protonix) 40 mg PO DAILY [facility] Last Admin: 09/11/18 08:37 Dose: 40 mg Pregabalin (Lyrica) 75 mg PO BID [facility] Last Admin: 09/11/18 08:37 Dose: 75 mg Promethazine HCl (Phenergan) 12.5 mg IM Q4H PRN PRN Reason: Nausea/Vomiting Ranolazine (Ranexa) 500 mg PO BID [facility] Last Admin: 09/11/18 08:35 Dose: 500 mg Senna/Docusate Sodium (Senokot S) 2 tab PO BID PRN PRN Reason: Constipation Last Admin: 09/10/18 08:33 Dose: 2 tab Sodium Chloride (Flush - Normal Saline) 10 ml IVF PRN PRN PRN Reason: Saline Flush Zolpidem Tartrate (Ambien) 5 mg PO HSPRN PRN PRN Reason: Insomnia
[2018-09-12] MEDS: HYDROcodone/Acetaminophen 10/325 mg Tablet PO PRN ×4 (02:13→15:53)
[2018-09-12] MEDS: Aspirin Chewable 81 MG TAB PO SCH (08:27)
[2018-09-12] MEDS: Losartan 25 MG TAB PO SCH (08:28)
[2018-09-12] MEDS: Pregabalin 75 MG CAP PO SCH (08:28)
[2018-09-12] MEDS: Amlodipine 5 MG TAB PO SCH (08:28)
[2018-09-12] MEDS: Clopidogrel Bisulfate 75 MG TAB PO SCH (08:28)
[2018-09-12] MEDS: Atorvastatin Calcium 40 MG TAB PO SCH (08:28)
[2018-09-12] MEDS: Ubidecarenone 50 MG CAP PO SCH (08:29)
--- NOTE | 2018-09-12 09:32 | PDOC.PN ---
- Subjective Encounter Start Date: 09/12/18 Encounter Start Time: 07:40 Patient seen and examined. No new complaints. No overnight events - Objective Resuscitation Status - Order Detail: 09/07/18 05:15 Resuscitation Status Routine Resuscitation Status: DNAR: NO Resuscitation Discussed with: Pt signed consents, discussed with VARUN Vega to put in order MAR Reviewed: Yes Vital Signs & Weight: Vital Signs (12 hours) Temp Pulse Resp BP Pulse Ox 09/12/18 09:07 95 09/12/18 07:42 98.3 F 58 L 14 106/61 95 09/12/18 04:14 98.2 F 67 18 109/63 98 09/12/18 00:08 99.2 F 71 18 107/67 97 Weight Weight 189 lb 2.506 oz I&O: 09/11/18 09/12/18 09/13/18 06:59 06:59 06:59 Intake Total 1989 Output Total 2350 900 Balance -360 -900 Result Diagrams: 09/08/18 07:20 09/08/18 07:20 Phys Exam - Physical Examination Constitutional: NAD HEENT: PERRLA, moist MMs, sclera anicteric Neck: no JVD, supple Respiratory: no wheezing, no rales, no rhonchi Cardiovascular: RRR, no significant murmur, no rub Gastrointestinal: soft, non-tender, no distention, positive bowel sounds Musculoskeletal: no edema, pulses present Neurological: non-focal, normal sensation Lymphatic: no nodes Psychiatric: normal affect, A&O x 3 Skin: no rash, normal turgor Dx/Plan (1) Acute exacerbation of chronic low back pain Code(s): M54.5 - LOW BACK PAIN; G89.29 - OTHER CHRONIC PAIN Status: Acute (2) Lumbar radicular pain Code(s): M54.16 - RADICULOPATHY, LUMBAR REGION Status: Acute Comment: acute on chronic (3) Headache Code(s): R51 - HEADACHE Status: Resolved Comment: postural headache, improving (4) Constipation Code(s): K59.00 - CONSTIPATION, UNSPECIFIED Status: Resolved (5) CAD (coronary artery disease) Code(s): I25.10 - ATHSCL HEART DISEASE OF [place] CORONARY ARTERY W/O ANG PCTRS Status: Chronic Qualifiers: Coronary Disease-Associated Artery/Lesion type: [place] artery Comment: stable (6) Hyperlipidemia Code(s): E78.5 - HYPERLIPIDEMIA, UNSPECIFIED Status: Chronic Comment: on Lipitor (7) Hypertension Code(s): I10 - ESSENTIAL (PRIMARY) HYPERTENSION Status: Chronic Comment: controlled - Plan cont 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 Review of Systems - Review of Systems ENT: negative: Ear Pain, Ear Discharge, Nose Pain, Nose Discharge, Nose Congestion, Mouth Pain, Mouth Swelling, Throat Pain, Throat Swelling, Other Respiratory: negative: Cough, Dry, Shortness of Breath, Hemoptysis, SOB with Excertion, Pleuritic Pain, Sputum, Wheezing Cardiovascular: negative: chest pain, palpitations, orthopnea, paroxysmal nocturnal dyspnea, edema, light headedness, other Gastrointestinal: negative: Nausea, Vomiting, Abdominal Pain, Diarrhea, Constipation, Melena, Hematochezia, Other Genitourinary: negative: Dysuria, Frequency, Incontinence, Hematuria, Retention , Other Musculoskeletal: Back Pain. negative: Neck Pain, Shoulder Pain, Arm Pain, Hand Pain, Leg Pain, Foot Pain, Other - Medications/Allergies Allergies/Adverse Reactions: Allergies Allergy/AdvReac Type Severity Reaction Status Date / Time azithromycin Allergy Verified 08/20/18 18:02 [From Zithromax Z-Sb] ciprofloxacin [From Cipro] Allergy Verified 08/20/18 18:02 lisinopril Allergy Verified 08/20/18 18:02 rosuvastatin [From Crestor] Allergy Verified 08/20/18 18:02 Medications: Current Medications Acetaminophen (Tylenol) 650 mg PO Q4H PRN PRN Reason: Headache/Fever/Mild Pain (1-3) Acetaminophen (Tylenol) 650 mg [place] Q4H PRN PRN Reason: Headache/Fever/Mild Pain (1-3) Hydrocodone Bitart/Acetaminophen ([place] 10/325) 1 tab PO Q4H PRN PRN Reason: Moderate Pain (4-6) Last Admin: 09/09/18 12:50 Dose: 1 tab Hydrocodone Bitart/Acetaminophen ([place] 10/325) 2 tab PO Q4H PRN PRN Reason: Severe Pain (7-10) Last Admin: 09/12/18 06:01 Dose: 2 tab Amlodipine Besylate (Norvasc) 5 mg PO DAILY [facility] Last Admin: 09/11/18 08:36 Dose: 5 mg Aspirin (Aspirin Chewable) 81 mg PO DAILY [facility] Last Admin: 09/12/18 08:27 Dose: 81 mg Atorvastatin Calcium (Lipitor) 40 mg PO DAILY [facility] Last Admin: 09/12/18 08:28 Dose: 40 mg Cholecalciferol (Vitamin D3) 1,000 units PO DAILY [facility] Last Admin: 09/12/18 08:28 Dose: 1,000 units Clopidogrel Bisulfate (Plavix) 75 mg PO DAILY [facility] Last Admin: 09/12/18 08:28 Dose: 75 mg Coenzyme Q10 (Coenzyme Q10) 100 mg PO DAILY [facility] Last Admin: 09/12/18 08:29 Dose: 100 mg Diphenhydramine HCl (Benadryl) 25 mg IVP Q3H PRN PRN Reason: Itching Diphenhydramine HCl (Benadryl) 25 mg PO Q3H PRN PRN Reason: Itching Diphenhydramine HCl (Benadryl) 25 mg IM Q3H PRN PRN Reason: Itching Fentanyl (Duragesic) 50 mcg TD Q3D [facility] Last Admin: 09/09/18 12:49 Dose: 50 mcg Isosorbide Mononitrate (Imdur Er) 30 mg PO DAILY [facility] Last Admin: 09/11/18 08:37 Dose: 30 mg Losartan Potassium (Cozaar) 25 mg PO DAILY [facility] Last Admin: 09/11/18 08:38 Dose: 25 mg Metoprolol Succinate (Toprol Xl) 12.5 mg PO BID [facility] Last Admin: 09/11/18 21:53 Dose: 12.5 mg Naloxone HCl (Narcan) 0.2 mg IV Q5MIN PRN PRN Reason: Opiate Reversal Nitroglycerin (Nitrostat) 0.4 mg SL Q5MIN PRN PRN Reason: Chest Pain Ondansetron HCl (Zofran Odt) 4 mg PO Q6H PRN PRN Reason: Nausea/Vomiting Ondansetron HCl (Zofran) 4 mg IVP Q6H PRN PRN Reason: Nausea/Vomiting Pantoprazole Sodium (Protonix) 40 mg PO DAILY [facility] Last Admin: 09/12/18 08:28 Dose: 40 mg Pregabalin (Lyrica) 75 mg PO BID [facility] Last Admin: 09/12/18 08:28 Dose: 75 mg Promethazine HCl (Phenergan) 12.5 mg IM Q4H PRN PRN Reason: Nausea/Vomiting Ranolazine (Ranexa) 500 mg PO BID [facility] Last Admin: 09/12/18 08:29 Dose: 500 mg Senna/Docusate Sodium (Senokot S) 2 tab PO BID PRN PRN Reason: Constipation Last Admin: 09/10/18 08:33 Dose: 2 tab Sodium Chloride (Flush - Normal Saline) 10 ml IVF PRN PRN PRN Reason: Saline Flush Zolpidem Tartrate (Ambien) 5 mg PO HSPRN PRN PRN Reason: Insomnia
--- NOTE | 2018-09-12 09:45 | DIS ---
DATE OF ADMISSION: 09/04/2018 DATE OF DISCHARGE: 09/12/2018 PRIMARY CARE PHYSICIAN: Jeannette Call admission. DISCHARGE DISPOSITION: Home/rehab. PRIMARY DISCHARGE DIAGNOSES: 1. Intractable postural headache, resolved. 2. Acute exacerbation of chronic low back pain secondary to lumbar radicular pain. SECONDARY DISCHARGE DIAGNOSES: 1. Coronary artery disease. 2. Hypertension. 3. Dyslipidemia. PRIMARY PROCEDURE/OPERATION: None. RADIOLOGICAL INVESTIGATION: CT brain negative for any acute intracranial process. SIGNIFICANT LABORATORY DATA: WBC 9.6, hemoglobin 12.5, platelet 229. Sodium 133, potassium 5.0, BUN 12, creatinine 0.80, calcium 9.3. DISCHARGE MEDICATIONS: 1. Nitroglycerin 0.3 mg sublingual p.r.n. for chest pain as directed. 2. Amlodipine 5 mg p.o. daily. 3. Aspirin 81 mg p.o. daily. 4. Lipitor 40 mg p.o. daily. 5. Vitamin D3 1000 units p.o. daily. 6. Plavix 75 mg p.o. daily. 7. Vitamin B12 1000 mcg p.o. daily. 8. Diazepam 5 mg p.o. t.i.d. 9. Imdur 30 mg p.o. daily. 10. Cozaar 25 mg p.o. daily. 11. Toprol-XL 12.5 mg p.o. b.i.d. 12. Omeprazole 20 mg p.o. daily. 13. Ranexa 500 mg p.o. b.i.d. 14. Coenzyme Q10 100 mg p.o. daily. 15. Duragesic patch 50 mcg every three days. 16. Goldfield 10 one tablet q.6 hourly p.r.n. for pain. 17. Lyrica 75 mg p.o. b.i.d. CONTRAINDICATION: None. CODE STATUS: DNR while in the hospital. ALLERGIES: AZITHROMYCIN, CIPROFLOXACIN, LISINOPRIL, AND CRESTOR. DISCHARGE PLAN: Posthospital, the patient will follow up with Dr. Andino as instructed and the patient will make appointment with primary care physician in 1 or 2 weeks. HOSPITAL COURSE: A 58-year-old male, who was admitted by Dr. Pozo. Please see his H and P for further details. This patient had recently spinal decompression surgery and after that, the patient was discharged to rehab where he was complaining of headache which was postural in nature, attributed to be due to recent lumbar surgery. He was also having acute on chronic low back pain while in the hospital. The patient was sent from rehab to our hospital for pain control. While in hospital, he required a [employer] pump for pain control and eventually we transitioned his pain medication to fentanyl patch and Goldfield with just excellent pain control. The patient was also able to ambulate with the physical therapy. Yesterday, he walked 300 feet. Today, the patient decided that he can go home if insurance does not approve him to go to rehab. Otherwise, the patient is optimistic to go home as well. At this point, the patient's pain has been controlled. I have spoken with Dr. Andino and he is not thinking that anything else is required at this point. While in the hospital, Anesthesia Team was managing his pain pump which was eventually discontinued. At this point, the patient is open to go either rehab or home depending upon approval. The patient is medically stable for discharge today. I have prescribed him Goldfield 10 one tablet q.6 hourly p.r.n., 30 pills for his intractable acute on chronic low back pain and I have also prescribed three patches of Duragesic patch for his pain control. I told him to make appointment with Pain Clinic or neurosurgeon for more pain medication if needed. The patient is seen and examined at bedside today. REVIEW OF SYSTEMS: All review of systems reviewed with him and negative. PHYSICAL EXAMINATION: VITAL SIGNS: Currently, temperature 98.3, pulse 58, blood pressure 106/61, saturation 95% on room air. Weight 189 pounds. GENERAL: The patient is currently alert, awake, in no obvious acute distress. HEENT: Head; normocephalic, atraumatic. Eyes; pupils round, reactive to light. Extraocular muscle intact. ENT; oropharynx within normal limits. LUNGS: Clear to auscultation without any rhonchi or rales. CARDIAC: S1, S2. Regular without any murmur. ABDOMEN: Soft and benign. EXTREMITIES: No edema. NEUROLOGIC: Nonfocal examination. The patient is medically stable for discharge today. Job ID: [id number]
[2018-09-12] MEDS: fentaNYL 50 mcg/hour Patch TD SCH (14:42)
[2018-09-12 15:25] VITALS: TEMP 98.3
[2018-09-12 16:08] VITALS: BP 134/76
== END 2018-09-12 17:00 | disposition home health service (06) | DRG 92 ==
LOC: SURG B 19:54 → INTOOBSV 19:54 → OBSVTOIN 19:54
PROVIDERS: ADMIT Emergency Medicine; ATTEND Emergency Medicine
DX: G97.82 Other postprocedural complications and disorders of nervous system (principal); E87.1 Hypo-osmolality and hyponatremia; R51 Headache; I10 Essential (primary) hypertension; I25.10 Atherosclerotic heart disease of native coronary artery without angina pectoris; E78.5 Hyperlipidemia, unspecified; F17.210 Nicotine dependence, cigarettes, uncomplicated; Z66 Do not resuscitate; G89.29 Other chronic pain; K59.00 Constipation, unspecified; M54.16 Radiculopathy, lumbar region; Z79.82 Long term (current) use of aspirin; Z79.02 Long term (current) use of antithrombotics/antiplatelets; Z95.5 Presence of coronary angioplasty implant and graft; Z96.653 Presence of artificial knee joint, bilateral; Z80.0 Family history of malignant neoplasm of digestive organs
CPT/HCPCS: 36415; 70450; 80048; 85025; J2270; J3010; J7050; Q0162

== ENCOUNTER 2018-09-18 12:27 | Outpatient (CLI) | payer MEDICARE ==
--- NOTE | 2018-09-18 14:45 | CT ---
CT LUMBAR SPINE WITHOUT CONTRAST: 09/18/2018 HISTORY: Back surgery on 08/26/2018. Severe back pain. COMPARISON: None. TECHNIQUE: Axial CT imaging at 2 mm intervals obtained through the lumbar spine with coronal and sagittal reform atted imaging. FINDINGS: Evaluation for central canal and/or neural foraminal stenosis is limited on routine CT examination. There are punctate, nonobstructing renal calculi noted bilaterally, which includes a 2 mm calcificati on upper pole right kidney and a 2 mm calcification lower pole right kidney. There are 3-4 such calc jeimy noted within the left, the largest noted within the mid pole, measuring approximately 2 mm. Imaged retroperitoneal structures demonstrate no acute findings. There is partially imaged sigmoid d iverticulosis. A partially imaged urinary bladder demonstrates mild wall thickening, which could be on the basis of under-distention. Bilateral pedicle screws are present at L4, L5, and S1, with vertically oriented interlocking rods. No evidence for hardware failure. No significant anterolisthesis or retrolisthesis. T12-L1: No osseous cause of significant central canal or neural foraminal stenosis. L1-L2: Mild anterior osteophyte formation. No osseous cause of significant central canal or neural foraminal stenosis. L2-L3: No osseous cause of significant central canal or neural foraminal stenosis. Right-sided ante rior osteophyte formation noted. L3-L4: There is anterior osteophyte formation. There is mild disk bulge. There is bilateral facet hypertrophy, right greater than left. Moderate right and mild left neural foraminal stenosis suspect ed. No osseous cause of significant central canal stenosis. Bilateral laminectomy changes are noted . L4-L5: Intervertebral disk device noted. Bilateral facet hypertrophy noted with mild bilateral neur al foraminal stenosis, right greater than left. No osseous cause of significant central canal stenos is. Bilateral laminectomy changes are noted. L5-S1: Intervertebral disk device noted. Mild bilateral facet hypertrophy with probable mild bilate ral neural foraminal stenosis, left greater than right. No osseous cause of significant central nedra l stenosis. No acute fracture or evidence of dislocation. No worrisome lytic or blastic bone lesion . IMPRESSION: 1. Degenerative change and postoperative change, as detailed above. 2. No evidence for hardware failure or acute fracture/dislocation. POS: [facility]
== END 2018-09-18 12:28 | disposition home or self-care (01) ==
LOC: SCSCT 12:27
PROVIDERS: ATTEND Neurological Surgery
DX: M96.1 Postlaminectomy syndrome, not elsewhere classified (principal); M47.816 Spondylosis without myelopathy or radiculopathy, lumbar region; Z98.890 Other specified postprocedural states
CPT/HCPCS: 72131

== ENCOUNTER 2018-10-08 16:45 | Emergency (ER) | payer MEDICARE ==
[2018-10-08 18:07] LABS: #Eosinphils 0.1 thou/uL (0.0-0.7); #Lymphocytes 2.6 thou/uL (1.20-3.40); #Monocytes 1.2 thou/uL (0.11-0.59); %Basophils 0.3 % (0.0-1.0); %Eosinophils 0.7 % (0.0-10.0); %Monocytes 13.3 % (0.0-10.0); %Neutrophils 56.7 % (42.0-75.0); Hemoglobin 12.7 g/dL (14.0-18.0); Mean Corpuscular HGB CONC 32.9 g/dL (32.0-36.0); Mean Corpuscular Hemoglobin 30.4 pg (27.0-31.0); Mean Corpuscular Volume 92.5 fL (78.0-98.0); Mean Platelet Volume 6.8 fL (7.4-10.4); Platelet Count 193 thou/uL (130-400); RBC Distribution Width 12.9 % (11.5-14.5); Red Blood Cell (RBC) Count 4.16 mill/uL (4.70-6.10); White Blood Cell (WBC) Count 8.8 thou/uL (4.8-10.8)
[2018-10-08] MEDS ORDERED: Ketorolac Tromethamine 30 MG/ML VIAL ONE (18:21)
[2018-10-08 18:35] LABS: Anion Gap 9 mmol/L (10-20); BUN (Urea Nitrogen) 16 mg/dL (8.4-25.7); Calc. Creatinine Clearance 0 mL/min (70-130); Calcium 9.4 mg/dL (7.8-10.44); Carbon Dioxide 27 mmol/L (22-29); Chloride 104 mmol/L (98-107); Estimated GFR-MDRD Greater than 90; Glucose 153 mg/dL (70-105); Potassium 3.8 mmol/L (3.5-5.1); Sodium 136 mmol/L (136-145)
== END 2018-10-08 18:59 | disposition home or self-care (01) ==
LOC: ERS 16:45
DX: M54.5 Low back pain (principal); I25.10 Atherosclerotic heart disease of native coronary artery without angina pectoris; E78.5 Hyperlipidemia, unspecified; I10 Essential (primary) hypertension
CPT/HCPCS: 36415; 80048; 85025; 96374; J1885